=== PATIENT | male | born 1985 | race African-American/Black ===

== ENCOUNTER 2017-03-22 08:58 | Emergency (ER) | payer OTHER ==
[2017-03-22 09:04] VITALS: BP 111/78; PULSE 77; BMI 22.0
--- NOTE | 2017-03-22 10:15 | PDOC ---
History of Present Illness - General Chief Complaint: Injury Stated Complaint: HEAD INJURY/ BLEEDING Time Seen by Provider: 03/22/17 10:08 History Source: Patient Exam Limitations: Physical Impairment - History of Present Illness Initial Comments: 03/22/17 10:28 31 yr male brought from [facility] for eval of laceration to scalp after hitting head on the door. No LOC. Pt has severe MR, seizure disorder. Pt is with her aides. Tetanus UTD. bleeding controlled. Occurred: reports: just prior to arrival Severity: reports: mild Pain Location: reports: head Method of Injury: Yes: direct blow (hit on door frame) Past History - Past Medical History Allergies/Adverse Reactions: Allergies Allergy/AdvReac Type Severity Reaction Status Date / Time No Known Allergies Allergy Verified 03/22/17 09:04 Home Medications: Ambulatory Orders Baclofen 15 mg PO TID 10/25/15 Benztropine Mesylate [Cogentin -] 0.5 mg PO BID 10/25/15 Cefuroxime Axetil [Ceftin -] 500 mg PO Q12H #20 tablet 10/25/15 Cholecalciferol (Vitamin D3) [Vitamin D3] 1,000 unit PO DAILY 10/25/15 Clonazepam [Klonopin] 1 mg PO BID 10/25/15 Docusate Sodium [Colace -] 200 mg PO HS 10/25/15 Haloperidol [Haldol -] 5 mg PO BID 10/25/15 Ibuprofen [Motrin -] 600 mg PO TID #21 tablet 10/25/15 Lorazepam [Ativan] 3 mg PO DAILY 10/25/15 Multivitamin [Poly-Vitamin] 1 each PO DAILY 10/25/15 Trazodone HCl 100 mg PO HS 10/25/15 Polyethylene Glycol 3350 [Miralax 119 gm Btl -] 17 gm PO DAILY PRN 11/26/15 Psychiatric Problems: Yes (CEREBRAL PALSY & MR, Autistic) - Immunization History Immunization Up to Date: Yes - Psycho/Social/Smoking Cessation Hx Anxiety: No Suicidal Ideation: No Smoking History: Never smoked Have you smoked in the past 12 months: No Information on smoking cessation initiated: No Hx Alcohol Use: No Drug/Substance Use Hx: No Substance Use Type: None Trauma Specific PMHX - Complaint Specific PMHX Arthritis: No Back Injury: No Neck Injury: No Hx Sacro Iliac Joint Dysfunction: No *Physical Exam - Vital Signs Last Vital Signs Temp Pulse Resp BP Pulse Ox 77 18 111/78 99 03/22/17 09:02 03/22/17 09:02 03/22/17 09:02 03/22/17 09:02 - Physical Exam General Appearance: Yes: Nourished, Appropriately Dressed HEENT: positive: EOMI, JOSÉ MIGUEL, TMs Normal Neck: positive: Supple Integumentary: positive: Other (left occipital scalp with laceration 2.0cm ) Procedures - Laceration/Wound Repair Left Occipital Wound Length: to 2.5 cm Wound Explored: clean Wound's Depth, Shape: into muscle, linear Irrigated w/ Saline: Yes Betadine Prep: Yes Wound Repaired With: [place] (3 megan placed ) Progress: 03/22/17 10:35 bacitracin placed Medical Decision Making - Medical Decision Making 03/22/17 10:36 cc: scalp laceration hit head on door frame no LOC witnessed by staff, at baseline pt is non verbal will irrigate and close wound with megan tetanus is UTD. vital stable *DC/Admit/Observation/Transfer Diagnosis at time of Disposition: Laceration - Discharge Dispostion Disposition: HOME Condition at time of disposition: Good - Referrals Referrals: Lexii Steele [Primary Care Provider] - - Patient Instructions Additional Instructions: apply ice every 2hrs for 15 minutes to the wound area as tolerated give tylenol 650mg every 4-6hrs for pain as needed Return in 7-10 days for staple removal Please have patient follow with his primary care doctor in 1-2 days for follow up visit - Post Discharge Activity Work/School Note: Back to School
== END 2017-03-22 11:08 | disposition home or self-care (01) ==
LOC: JERFT 08:58
PROC: 0HQ0XZZ Repair Scalp Skin, External Approach (ICD-10-PCS; principal; 2017-03-22)
DX: S01.01XA Laceration without foreign body of scalp, initial encounter (principal); W22.8XXA Striking against or struck by other objects, initial encounter; Y93.89 Activity, other specified; Y92.118 Other place in children's home and orphanage as the place of occurrence of the external cause; G40.909 Epilepsy, unspecified, not intractable, without status epilepticus; G80.9 Cerebral palsy, unspecified; F72 Severe intellectual disabilities; F84.0 Autistic disorder
CPT/HCPCS: 12001-25; 99281-25

== ENCOUNTER 2019-09-17 22:04 | Inpatient (IN) | payer OTHER ==
[2019-09-17] MEDS ORDERED: ALBUTEROL SO4 0.083% IH SOL 2.5 MG/3 ML VIAL.NEB. NEB ONE ×2 (22:13→22:29)
--- NOTE | 2019-09-17 22:26 | PDOC ---
Attending Attestation - Resident Resident Name: Marilyn Barrett - ED Attending Attestation I have performed the following: I have examined & evaluated the patient, The case was reviewed & discussed with the resident, I agree w/resident's findings & plan, Exceptions are as noted - HPI HPI: 09/17/19 22:25 34-year-old male brought in from residential facility for respiratory distress. He was hypoxic on 100% nonrebreather ,tachycardic,tachypnic Past medical history legally blind, cerebral palsy, nonverbal at baseline 09/18/19 00:22 - Physicial Exam PE: 09/17/19 22:26 34-year-old male with contracted limbs presents with rhonchorous breath sounds and hypoxia Head normocephalic atraumatic Lungs diffuse coarse rhonchi throughout all lung spence CVS tachycardia Abdomen nondistended neuro nonverbal at baseline - Medical Decision Making 09/18/19 00:23 Critical care time 60 minutes Patient required intubation for respiratory distress Vent settings tidal volume 450, PEEP equal to 5, 5 to 100% Chest x-ray shows definite left lower lobe infiltrate with probable right lower lobe infiltrate 7.5 ET confirmed with repeat chest x-ray, end-tidal CO2 and bilateral breath sounds 09/18/19 00:56 pt admitted to ICU repeat cxr confirms ETT placement
[2019-09-17 22:45] LABS: BASO % 0.1 % (0-2.0); EOS % 0.4 % (0-4.5); HEMATOCRIT 43.9 % (35.4-49); HEMOGLOBIN 14.9 GM/dL (11.7-16.9); LYMPH % 13.1 % (8-40); MCH 28.8 pg (25.7-33.7); MCHC 33.9 g/dl (32.0-35.9); MEAN PLT VOLUME 9.2 fl (7.5-11.1); MONO % 3.7 % (3.8-10.2); NEUT % 82.7 % (42.8-82.8); PLATELET COUNT 241 K/MM3 (134-434); RBC 5.16 M/mm3 (4.00-5.60); RDW 13.4 % (11.9-15.9); WHITE BLOOD COUNT 12.1 K/mm3 (4.0-10.0)
[2019-09-17 22:48] LABS: VENOUS PH 7.22 (7.31-7.41); VENOUS PO2 < 49 mmHg (28-48)
--- NOTE | 2019-09-17 22:48 | PDOC ---
History of Present Illness - General Chief Complaint: Respiratory Stated Complaint: DIFFICULTY OF BREATHING Time Seen by Provider: 09/17/19 22:15 - History of Present Illness Initial Comments: 09/17/19 22:47 HPI: 34 y/o M with hx of cerebral palsy, intellectual disability, and blindness BIBEMS from facility for AMS, increased WOB and concern for aspiration PNA. Was found hypoxic and tachypnic. Patient was brought to the ED. Sats were 80s, HR 130s, BP wnl, T 95. Started on nonrebreather but sats continued in the high 80s. Breath sounds were bilateral but rhonchorous. Patient is nonverbal at [facility], but he was grunting while here. PMHx: as noted above ROS: as noted SHx: at residential facility Allergies: NKDA ROS: unable to perform given mental status PE: GENERAL: unresponsive, eyes closed, labored breathing HEAD: No signs of trauma, normocephalic, atraumatic EYES: eyes closed ENT: Auricles normal inspection, significant oral and nasal secretions NECK: No lymphadenopathy LUNGS: increased work of breathing, significant upper airway congestion, rhonchi and rales in BL lower lung bases HEART: tachycardic rhythm, normal S1 and S2, no murmurs, peripheral pulses 2+ and equal bilaterally. ABDOMEN: Soft, nondistended, nontender. No guarding, no rebound. No masses. No CVAT EXTREMITIES: BL contractures of hands, no cyanosis NEUROLOGICAL: unresponsive SKIN: Warm, Dry, normal turgor, no rashes or lesions noted Past History - Past Medical History Allergies/Adverse Reactions: Allergies Allergy/AdvReac Type Severity Reaction Status Date / Time No Known Allergies Allergy Verified 09/17/19 22:25 Home Medications: Ambulatory Orders Baclofen 15 mg PO TID 10/25/15 Benztropine Mesylate [Cogentin -] 0.5 mg PO BID 10/25/15 Cefuroxime Axetil [Ceftin -] 500 mg PO Q12H #20 tablet 10/25/15 Cholecalciferol (Vitamin D3) [Vitamin D3] 1,000 unit PO DAILY 10/25/15 Clonazepam [Klonopin] 1 mg PO BID 10/25/15 Docusate Sodium [Colace -] 200 mg PO HS 10/25/15 Haloperidol [Haldol -] 5 mg PO BID 10/25/15 Ibuprofen [Motrin -] 600 mg PO TID #21 tablet 10/25/15 Lorazepam [Ativan] 3 mg PO DAILY 10/25/15 Multivitamin [Poly-Vitamin] 1 each PO DAILY 10/25/15 Trazodone HCl 100 mg PO HS 10/25/15 Polyethylene Glycol 3350 [Miralax 119 gm Btl -] 17 gm PO DAILY PRN 11/26/15 Psychiatric Problems: Yes (CEREBRAL PALSY & MR, Autistic) - Immunization History Immunization Up to Date: Yes - Psycho Social/Smoking Cessation Hx Smoking History: Unknown if ever smoked Have you smoked in the past 12 months: No Hx Alcohol Use: No Drug/Substance Use Hx: No Substance Use Type: None *Physical Exam - Vital Signs Last Vital Signs Temp Pulse Resp BP Pulse Ox 95.9 F L 131 H 27 H 128/77 88 L 09/17/19 22:05 09/17/19 22:05 09/17/19 22:05 09/17/19 22:05 09/17/19 22:05 Procedures - Intubation Time of Intubation: 00:01 Intubation Method: orotracheal Blade used: Glidescope Tube Size (Fr): 7.5 Medications: Etomidate, Succinylcholine Tube position @ lip (cm): 22 Tube position confirmed by: Direct visualization, CO2 detector, Chest x-ray, Breath sounds Breath Sounds after Intubation: equal Intubation Complications: no complications Post Intubation Xray: Yes ED Treatment Course - LABORATORY CBC & Chemistry Diagram: 09/17/19 22:30 09/17/19 22:30 Medical Decision Making - Critical Care Time Total Critical Care Time (minutes): 60 Critical Care Statement: The care of this patient involved high complexity decision making to prevent further life threatening deterioration of the patient 's condition and/or to evaluate & treat vital organ system(s) failure or risk of failure. - Medical Decision Making 09/18/19 00:27 34 y/o M with hx of cerebral palsy, intellectual disability, and blindness BIBEMS from facility for AMS, increased WOB and concern for aspiration PNA. Was found hypoxic and tachypnic. Sats were 80s, HR 130s, BP wnl, T 95. Started on nonrebreather but sats continued in the high 80s. Breath sounds were bilateral but rhonchorous. Patient is nonverbal at baseline, but he was grunting while here. -sepsis order set 09/18/19 00:29 patient hypercapnic pCO2 72 and pH 7.22 WBC 12 Patient continues to sat 88 on nonrebreather Decision made to intubate with RSI: see intubation note; 7.5ETT 22cm at the lip ICU team made aware of patient; will contact hospitalist for admission given empiric vanc zosyn 09/18/19 00:46 ETT confirmed with CXR; also BL lower lobe infiltrates more clearly visualzied admitted to ICU under ifudu Discharge - Discharge Information Problems reviewed: Yes Clinical Impression/Diagnosis: Respiratory distress Pneumonia Qualifiers: Pneumonia type: due to unspecified organism Laterality: bilateral Lung location : lower lobe of lung Qualified Code(s): J18.9 - Pneumonia, unspecified organism Condition: Guarded - Admission Yes - Follow up/Referral - Patient Discharge Instructions - Post Discharge Activity
[2019-09-17 22:49] LABS: VENOUS PC02 72.1 mmHg (38-52)
[2019-09-17 22:57] LABS: INR 1.21 (0.83-1.09); PROTHROMBIN TIME (PATIENT) 14.3 SEC (9.7-13.0)
[2019-09-17 23:00] LABS: ACTIVATED PTT 31.4 SECONDS (25.2-36.5)
[2019-09-17] MEDS ORDERED: PIPERACILLIN/TAZOB 3.375 GM 3.375 GM in DEXTROSE 5%-WATER - 50 ML IVPB ONE (23:05)
[2019-09-17] MEDS ORDERED: VANCOMYCIN 1 GM PREMIX - 1 GM/200 ML BAG IVPB ONE (23:05)
[2019-09-17 23:10] LABS: ALBUMIN 3.7 g/dl (3.4-5.0); BILIRUBIN,TOTAL 0.2 mg/dL (0.2-1); BLOOD UREA NITROGEN 19.4 mg/dL (7-18); CALCIUM 8.8 mg/dL (8.5-10.1); CREATININE 0.8 mg/dL (0.55-1.3); POTASSIUM 3.6 mmol/L (3.5-5.1)
[2019-09-17] MEDS ORDERED: RAPID SEQUENCE INTUBATION KIT NR ONE (23:11)
[2019-09-18] MEDS ORDERED: ROCURONIUM BROMIDE 50 MG/5 ML VIAL IVPUSH ONE ×2 (00:01→04:16)
[2019-09-18] MEDS ORDERED: PROPOFOL 1,000,000 MCG/100 ML VIAL ONE ×3 (00:09→16:21)
[2019-09-18] MEDS ORDERED: PROPOFOL 1,000,000 MCG/100 ML VIAL IVPB SCH (00:15)
[2019-09-18] MEDS ORDERED: SODIUM CHLORIDE 1,000 ML IV STA (00:23)
[2019-09-18] MEDS ORDERED: ETOMIDATE 40 MG/20 ML VIAL IVPUSH ONE (00:23)
[2019-09-18] MEDS ORDERED: SUCCINYLCHOLINE CHLORIDE 200 MG/10 ML VIAL IVPUSH ONE (00:23)
[2019-09-18 00:57] LABS: URINE APPEARANCE CLEAR; URINE BILIRUBIN NEGATIVE (NEGATIVE); URINE COLOR YELLOW; URINE GLUCOSE (UA) TRACE (NEGATIVE); URINE KETONE NEGATIVE (NEGATIVE); URINE LEUK ESTERASE NEGATIVE (NEGATIVE); URINE NITRITE NEGATIVE (NEGATIVE); URINE PROTEIN NEGATIVE (NEGATIVE); URINE UROBILINOGEN 0.2 mg/dL (0.2-1.0)
[2019-09-18] MEDS ORDERED: SODIUM CHLORIDE 500 ML IV STA (01:03)
--- NOTE | 2019-09-18 01:13 | CONSULT ---
Consultation: CONSULT REQUEST: ICU CONSULT HISTORY OF PRESENT ILLNESS: 34 y/o M with hx of cerebral palsy, intellectual disability, and blindness BIBEMS from facility because of lethargy and cough with increasing sputum production. Applications Engineering Manager says he was sitting down when he suddenly started having coughing spells with sputum production. She said they were treating him for flu- like symptoms and was given pseudophed. Patent then became more altered and lethargic which prompted them to call EMS. Applications Engineering Manager denies sick contacts at the facility. Patient also received flu vaccine 2 days ago. She also says patient had no recent illness. In the ER patient was found hypoxic. He was placed on venti-mask but had increased work of breathing and remained hypoxic. Patient was then intubated ( 7.5ETT 22cm at the lip). He was found tachycardic in the 120's, hypothermic at 95.9. WBC 12. B/L infiltrates on CXR. 1x Vanc/Zosyn given. Vent settings in ED: Elsa 14, 450TV, 100%Fio2, PEEP 5 REVIEW OF SYSTEMS: unable to obtain PHYSICAL EXAMINATION Vital Signs - 24 hr 09/17/19 09/18/19 22:05 00:51 Temperature 95.9 F L Pulse Rate 131 H 122 H Respiratory 27 H 14 Rate Blood Pressure 128/77 O2 Sat by Pulse 88 L 94 L Oximetry (%) GENERAL: intubated/sedated on raffy hugger EYES: PERRL EARS, NOSE, THROAT: dry mucous membranes NECK: no lymphadenopathy, JVD, or masses. LUNGS: rhonchorous breath sounds HEART: tachy, no murmurs appreciaed ABDOMEN: no grimacing to palpation, +BS LOWER EXTREMITIES: 2+ pulses,No peripheral edema. SKIN: cold, no rashes or lesions noted. Laboratory Results - last 24 hr 09/17/19 09/17/19 09/17/19 22:30 22:30 22:30 WBC 12.1 H RBC 5.16 Hgb 14.9 Hct 43.9 MCV 85.0 MCH 28.8 MCHC 33.9 RDW 13.4 Plt Count 241 D MPV 9.2 Absolute Neuts (auto) 10.0 H Neutrophils % 82.7 Lymphocytes % 13.1 D Monocytes % 3.7 L Eosinophils % 0.4 Basophils % 0.1 Nucleated RBC % 0 PT with INR 14.30 H INR 1.21 H PTT (Actin FS) 31.4 VBG pH POC VBG pCO2 POC VBG pO2 VBG HCO3 VBG O2 Sat (Laci) VBG Base Excess Sodium Potassium Chloride Carbon Dioxide Anion Gap BUN Creatinine Est GFR (CKD-EPI)AfAm Est GFR (CKD-EPI)NonAf Random Glucose Lactic Acid Calcium Total Bilirubin AST ALT Alkaline Phosphatase Troponin I < 0.02 Total Protein Albumin Urine Color Urine Appearance Urine pH Ur Specific [place] Urine Protein Urine Glucose (UA) Urine Ketones Urine Blood Urine Nitrite Urine Bilirubin Urine Urobilinogen Ur Leukocyte Esterase 09/17/19 09/17/19 09/17/19 22:30 22:30 22:30 WBC RBC Hgb Hct MCV MCH MCHC RDW Plt Count MPV Absolute Neuts (auto) Neutrophils % Lymphocytes % Monocytes % Eosinophils % Basophils % Nucleated RBC % PT with INR INR PTT (Actin FS) VBG pH 7.22 L POC VBG pCO2 72.1 H* POC VBG pO2 < 49 H VBG HCO3 28.2 VBG O2 Sat (Laci) 74.2 VBG Base Excess -1.6 Sodium 140 Potassium 3.6 Chloride 106 Carbon Dioxide 28 Anion Gap 6 L BUN 19.4 H Creatinine 0.8 Est GFR (CKD-EPI)AfAm 136.03 Est GFR (CKD-EPI)NonAf 117.37 Random Glucose 180 H Lactic Acid 1.9 Calcium 8.8 Total Bilirubin 0.2 AST 19 ALT 28 Alkaline Phosphatase 108 Troponin I Total Protein 7.0 Albumin 3.7 Urine Color Urine Appearance Urine pH Ur Specific [place] Urine Protein Urine Glucose (UA) Urine Ketones Urine Blood Urine Nitrite Urine Bilirubin Urine Urobilinogen Ur Leukocyte Esterase Active Medications Generic Name Dose Route Start Last Admin Trade Name Freq PRN Reason Stop Dose Admin Propofol 1,000,000 mcg in 100 mls @ 2.245 mls/hr 09/18/19 00:15 09/18/19 00: 20 Diprivan - IVPB 5 mcg/kg/min TITR ASHA 2.245 mls/hr Administration Protocol 5 MCG/KG/MIN Sodium Chloride 1,000 mls @ 1,000 mls/hr 09/18/19 00:23 09/18/19 00:23 Normal Saline - IV 09/18/19 01:22 1,000 mls/hr ASDIR STA Administration Piperacillin Sod/Tazobactam 50 mls @ 100 mls/hr 09/18/19 06:00 Sod 2.25 gm/ Dextrose IVPB Q6H-IV ASHA Protocol Sodium Chloride 500 mls @ 500 mls/hr 09/18/19 01:03 Normal Saline - IV 09/18/19 02:02 ASDIR STA Sodium Chloride 1,000 mls @ 83 mls/hr 09/18/19 01:15 Normal Saline - IV ASDIR ASHA ASSESSMENT/PLAN: #Acute Hypoxic Hypercapneic Respiratory Failure #Aspiration PNA #Sepsis #Hypothermia #Cerebral palsy #Blindness -intubated/sedated on propofol -repeat ABG and adjust vent settings -Monitor Vital signs -IV abx -IV Fluids -HD stable. -Maintain MAP >65 -NPO -Flu, Viral pcr -repeat lactic acid -aspiration precautions -repeat CXR Dispo: We will continue to follow the patient. Thank you for this consultative opportunity. Visit type - Emergency Visit Emergency Visit: Yes ED Registration Date: 09/18/19 Care time: The patient presented to the Emergency Department on the above date and was hospitalized for further evaluation of their emergent condition. - New Patient This patient is new to me today: Yes Date on this admission: 09/20/19 - Critical Care Critical Care patient: Yes Total Critical Care Time (in minutes): 40 Critical Care Statement: The care of this patient involved high complexity decision making to prevent further life threatening deterioration of the patient 's condition and/or to evaluate & treat vital organ system(s) failure or risk of failure. ATTENDING PHYSICIAN STATEMENT I saw and evaluated the patient. I reviewed the resident's note and discussed the case with the resident. I agree with the resident's findings and plan as documented. SUBJECTIVE: OBJECTIVE: ASSESSMENT AND PLAN:
[2019-09-18 01:23] LABS: ARTERIAL BLD GAS O2 SATURATION 97.8 % (95-98); ARTERIAL BLOOD GAS BASE EXCESS -3.4 meq/l (-2-2); ARTERIAL BLOOD GAS PCO2 64.5 mmHg (35-45); ARTERIAL BLOOD GAS pH 7.22 (7.35-7.45)
[2019-09-18 01:25] LABS: ARTERIAL BLOOD GAS PO2 138 mmHg (80-100)
[2019-09-18 01:26] LABS: ALLENS TEST POSITIVE
--- NOTE | 2019-09-18 01:52 | PN ---
<Adamaris Watters - Last Filed: 09/18/19 04:23> Teaching Attending Note Name of Resident: Julia Joseph ATTENDING PHYSICIAN STATEMENT I saw and evaluated the patient. I reviewed the resident's note and discussed the case with the resident. I agree with the resident's findings and plan as documented. SUBJECTIVE: Patient is a 34 year old man with PMH of Cerebral palsy, Intellectual disability , and Blindness brought in from facility because of lethargy and cough with increasing sputum production. Endodontic Assistant says he was sitting down when he suddenly started having coughing spells with sputum production. She said they were treating him for flu-like symptoms and was given pseudaphed. Patient then became more altered and lethargic which prompted them to call EMS. Endodontic Assistant denies sick contacts at the facility. Patient also received flu vaccine 2 days ago. She also says patient had no recent illness. In the ER patient was found hypoxic. He was placed on venti-mask but had increased work of breathing and remained hypoxic. Patient was then intubated (7.5ETT 22cm at the lip). He was found tachycardic in the, hypothermic at 95.9, WBC of 12 and bilateral infiltrates on CXR. OBJECTIVE: Sedated; ventilator-dependent and on warming blanket Vital Signs Period Temp Pulse Resp BP Sys/Horne Pulse Ox Last 24 Hr 95.9 F 122-131 14-27 128/77 88-94 HEENT: No Jaundice, eye redness or discharge, Legally blind; Normocephalic, atraumatic. External ears are normal. No nasal discharge. Neck: Supple, nontender. No palpable adenopathy or thyromegaly. No JVD Chest: Good effort. Diffuse rhonchi. Clear to percussion. Heart: Regular. No S3, rub or murmur Abdomen: Not distended, soft, nontender and no HSM. No rebound or guarding. Normal bowel sounds. Ext: Peripheral pulses intact. No leg edema. Multiple limb contractures. Skin: Warm and dry. No petechiae, rash or ecchymosis. Neuro: Sedated. Ventilator dependent. Psych: Appropriate mood and affect. Good insight. Current Medications Generic Name Dose Route Start Last Admin Trade Name Freq PRN Reason Stop Dose Admin Chlorhexidine Gluconate 1 applic 09/18/19 22:00 Hibiclens For Decolonization - TP HS [facility] Heparin Sodium (Porcine) 5,000 unit 09/18/19 06:00 Heparin - SQ TID [facility] Piperacillin Sod/Tazobactam 50 mls @ 100 mls/hr 09/18/19 06:00 Sod 2.25 gm/ Dextrose IVPB Q6H-IV [facility] Protocol Sodium Chloride 1,000 mls @ 83 mls/hr 09/18/19 01:15 09/18/19 02:27 Normal Saline - IV 83 mls/hr ASDIR ASHA Administration Midazolam HCl 100 mg/ Sodium 100 mls @ 1 mls/hr 09/18/19 02:30 Chloride IVPB 09/19/19 02:29 TITR [facility] Protocol 1 MG/HR Mupirocin 1 applic 09/18/19 10:00 Bactroban Ointment (For Decolonization) - NS 09/23/19 09:59 BID [facility] Home Medications Medication Instructions Recorded Baclofen 15 mg PO TID 10/25/15 Benztropine Mesylate [Cogentin -] 0.5 mg PO BID 10/25/15 Cefuroxime Axetil [Ceftin -] 500 mg PO Q12H #20 tablet 10/25/15 Cholecalciferol (Vitamin D3) 1,000 unit PO DAILY 10/25/15 [Vitamin D3] Clonazepam [Klonopin] 1 mg PO BID 10/25/15 Docusate Sodium [Colace -] 200 mg PO HS 10/25/15 Haloperidol [Haldol -] 5 mg PO BID 10/25/15 Ibuprofen [Motrin -] 600 mg PO TID #21 tablet 10/25/15 Lorazepam [Ativan] 3 mg PO DAILY 10/25/15 Multivitamin [Poly-Vitamin] 1 each PO DAILY 10/25/15 Trazodone HCl 100 mg PO HS 10/25/15 Polyethylene Glycol 3350 [Miralax 17 gm PO DAILY PRN 11/26/15 119 gm Btl -] Abnormal Lab Results 09/17/19 09/17/19 09/17/19 22:30 22:30 22:30 WBC 12.1 H Absolute Neuts (auto) 10.0 H Monocytes % 3.7 L PT with INR 14.30 H INR 1.21 H ABG pH ABG pCO2 at Pt Temp ABG pO2 at Pt Temp ABG Base Excess VBG pH POC VBG pCO2 POC VBG pO2 Anion Gap 6 L BUN 19.4 H Random Glucose 180 H 09/17/19 09/18/19 22:30 01:00 WBC Absolute Neuts (auto) Monocytes % PT with INR INR ABG pH 7.22 L ABG pCO2 at Pt Temp 64.5 H ABG pO2 at Pt Temp 138 H ABG Base Excess -3.4 L VBG pH 7.22 L POC VBG pCO2 72.1 H* POC VBG pO2 < 49 H Anion Gap BUN Random Glucose ASSESSMENT AND PLAN: 1. Sepsis due to pneumonia/hypoxic and hypercarbic respiratory failure - CXR shows bilateral fluffy lower lobe infiltrates (R>L). Will continue ventilator management and warming blanket in the ICU. Sepsis work up done and being treated with IV Vancomycin and Zosyn. Continue treatment with IV protonix, pulmonary toilet and decubitus prophylasix. Consult ID. EKG shows sinus tachycardia with LAE. Will continue comprehensive care for all of patients comorbid conditions. 2. DVT prophylaxis - Lovenox 40 mg SQ q 24 hours. 3. Advance directives - Full code <Isiah Johnson - Last Filed: 09/18/19 11:23> Teaching Attending Note Seen and examined; please see resident note for further historical information. I personally verified all alex historical information and exam findings. Personally interpreted all imaging and diagnostics and reviewed appropriate consults. I reviewed all labs and vital signs as per resident note and EMR as documented. I agree with the above assessment and plan unless supplemented by myself in the following. VS, labs, imaging reviewed Intubated and sedated on ventillator resting in bed, vent settings per flowsheet ET Tube in place; IV access noted with no apparent surrounding cellulitis RRR s1/2 no mgr Normal muscle tone, moves all 5 extremities with normal apparent strength Neck is supple, trachea midline, no mena LN Lungs CTAB with sym expansion NT ND +BS no mena organomegaly CN2-12 wnl; no FND but limited given clinical circumstances. NC AT EOMI PERRLA Not agitated, cannot complete full psych assessment No skin breakdown or rashes noted Telemetry reviewed, ventilator settings as per chart, ABG reviewed. Endorses acute hypercarbic respiratory failure. Oxygen is 138 which is actually high. pH is 7.22. Follow-up pending. Assessment and plan: Patient presents with acute hypoxic respiratory failure. Please note the following exam for the 24 hours billing. This documented by overnight team. Patient will continue to be monitored in the intensive care unit on the medicine service. Continue broad-spectrum antibiotics, fluids. At risk for resistant organisms given there social situation. Continue DVT prophylaxis. Hold feeds given likely aspiration. Protonix will be initiated for GI prophylaxis while n.p.o.
--- NOTE | 2019-09-18 02:01 | HP ---
CHIEF COMPLAINT: AMS PCP: Lexii Steele HISTORY OF PRESENT ILLNESS: 34 y/o male PMH cerebral palsy, intellectual disability, and BL blindness brought in from [facility] home after change in behavior. The pt was to receive his bath and responded with grunts; aid mentions he was breathing heavily. On duty nurse was called to assess and pt was found to be hypoxic in the 80s%, tachypnic, and tachycardic 120s, and hypothermic at 95o. He was brought to the ED where ABG demonstrated pH of 7.22 and Pco2 72. Pt was intubated and placed on mechanical ventilation. ED: (1) B/L infiltrates on CXR. (2) 1x Vanc/Zosyn given. (3) Vent settings in ED: Elsa 14, 450TV, 100%Fio2, PEEP 5 PAST MEDICAL HISTORY: Cerebral palsy, intellectual disability, and BL blindness PAST SURGICAL HISTORY: unable to obtain Social History: Smoking: no Alcohol: no Drugs: no Allergies: No Known Allergies Allergy (Verified 09/17/19 22:25) HOME MEDICATIONS: Medication Instructions Recorded Baclofen 15 mg PO TID 10/25/15 Benztropine Mesylate [Cogentin -] 0.5 mg PO BID 10/25/15 Cefuroxime Axetil [Ceftin -] 500 mg PO Q12H #20 tablet 10/25/15 Cholecalciferol (Vitamin D3) 1,000 unit PO DAILY 10/25/15 [Vitamin D3] Clonazepam [Klonopin] 1 mg PO BID 10/25/15 Docusate Sodium [Colace -] 200 mg PO HS 10/25/15 Haloperidol [Haldol -] 5 mg PO BID 10/25/15 Ibuprofen [Motrin -] 600 mg PO TID #21 tablet 10/25/15 Lorazepam [Ativan] 3 mg PO DAILY 10/25/15 Multivitamin [Poly-Vitamin] 1 each PO DAILY 10/25/15 Trazodone HCl 100 mg PO HS 10/25/15 Polyethylene Glycol 3350 [Miralax 17 gm PO DAILY PRN 11/26/15 119 gm Btl -] REVIEW OF SYSTEMS CONSTITUTIONAL: Absent: fever, chills, diaphoresis, generalized weakness, malaise, loss of appetite, weight change HEENT: Absent: rhinorrhea, nasal congestion, throat pain, throat swelling, difficulty swallowing, mouth swelling, ear pain, eye pain, visual changes CARDIOVASCULAR: Absent: chest pain, syncope, palpitations, irregular heart rate, lightheadedness , peripheral edema RESPIRATORY: Absent: cough, shortness of breath, dyspnea with exertion, orthopnea, wheezing, stridor, hemoptysis GASTROINTESTINAL: Absent: abdominal pain, abdominal distension, nausea, vomiting, diarrhea, constipation, melena, hematochezia GENITOURINARY: Absent: dysuria, frequency, urgency, hesitancy, hematuria, flank pain, genital pain MUSCULOSKELETAL: Absent: myalgia, arthralgia, joint swelling, back pain, neck pain SKIN: Absent: rash, itching, pallor HEMATOLOGIC/IMMUNOLOGIC: Absent: easy bleeding, easy bruising, lymphadenopathy, frequent infections ENDOCRINE: Absent: unexplained weight gain, unexplained weight loss, heat intolerance, cold intolerance NEUROLOGIC: Absent: headache, focal weakness or paresthesias, dizziness, unsteady gait, seizure, mental status changes, bladder or bowel incontinence PSYCHIATRIC: Absent: anxiety, depression, suicidal or homicidal ideation, hallucinations. PHYSICAL EXAMINATION Vital Signs - 24 hr 09/17/19 09/18/19 22:05 00:51 Temperature 95.9 F L Pulse Rate 131 H 122 H Respiratory 27 H 14 Rate Blood Pressure 128/77 O2 Sat by Pulse 88 L 94 L Oximetry (%) GENERAL: Sedated, intubated, on mechanical ventilation HEAD: NC, diffuse healed scars on right face, perioral edema EYES: BL white opacity RIGHT > LEFT. Pupils not visible. ENT: Ears normal, nares patent, intubated. NECK: No lymphadenopathy or masses. LUNGS: Left upper lobe rales HEART: RRR s1 s2 ABDOMEN: Soft, BS present in all 4 quadrants, non-distended MUSCULOSKELETAL: BL UE hand contracture. No bony deformities or tenderness. UPPER EXTREMITIES: 2+ pulses, warm, well-perfused. No cyanosis. No clubbing. No peripheral edema. LOWER EXTREMITIES: 2+ pulses, warm, well-perfused. No calf tenderness. No peripheral edema. NEUROLOGICAL: Corneal reflex intact. Repsonds to painful stimuli. PSYCHIATRIC: Non-communicative SKIN: Warm, dry, normal turgor, diffuse healed scars on RIGHT side of body. Normal capillary refill. Laboratory Results - last 24 hr 09/17/19 09/17/19 09/17/19 22:30 22:30 22:30 WBC 12.1 H RBC 5.16 Hgb 14.9 Hct 43.9 MCV 85.0 MCH 28.8 MCHC 33.9 RDW 13.4 Plt Count 241 D MPV 9.2 Absolute Neuts (auto) 10.0 H Neutrophils % 82.7 Lymphocytes % 13.1 D Monocytes % 3.7 L Eosinophils % 0.4 Basophils % 0.1 Nucleated RBC % 0 PT with INR 14.30 H INR 1.21 H PTT (Actin FS) 31.4 Anticoagulation Therapy Puncture Site ABG pH ABG pCO2 at Pt Temp ABG pO2 at Pt Temp ABG HCO3 ABG O2 Sat (Measured) ABG O2 Content ABG Base Excess Francisco Test VBG pH POC VBG pCO2 POC VBG pO2 VBG HCO3 VBG O2 Sat (Laci) VBG Base Excess O2 Delivery Device Oxygen Flow Rate Vent Mode Vent Rate Mechanical Rate PEEP Pressure Support Vent Sodium Potassium Chloride Carbon Dioxide Anion Gap BUN Creatinine Est GFR (CKD-EPI)AfAm Est GFR (CKD-EPI)NonAf Random Glucose Lactic Acid Calcium Total Bilirubin AST ALT Alkaline Phosphatase Troponin I < 0.02 Total Protein Albumin Urine Color Urine Appearance Urine pH Ur Specific [place] Urine Protein Urine Glucose (UA) Urine Ketones Urine Blood Urine Nitrite Urine Bilirubin Urine Urobilinogen Ur Leukocyte Esterase 09/17/19 09/17/19 09/17/19 22:30 22:30 22:30 WBC RBC Hgb Hct MCV MCH MCHC RDW Plt Count MPV Absolute Neuts (auto) Neutrophils % Lymphocytes % Monocytes % Eosinophils % Basophils % Nucleated RBC % PT with INR INR PTT (Actin FS) Anticoagulation Therapy Puncture Site ABG pH ABG pCO2 at Pt Temp ABG pO2 at Pt Temp ABG HCO3 ABG O2 Sat (Measured) ABG O2 Content ABG Base Excess Francisco Test VBG pH 7.22 L POC VBG pCO2 72.1 H* POC VBG pO2 < 49 H VBG HCO3 28.2 VBG O2 Sat (Laci) 74.2 VBG Base Excess -1.6 O2 Delivery Device Oxygen Flow Rate Vent Mode Vent Rate Mechanical Rate PEEP Pressure Support Vent Sodium 140 Potassium 3.6 Chloride 106 Carbon Dioxide 28 Anion Gap 6 L BUN 19.4 H Creatinine 0.8 Est GFR (CKD-EPI)AfAm 136.03 Est GFR (CKD-EPI)NonAf 117.37 Random Glucose 180 H Lactic Acid 1.9 Calcium 8.8 Total Bilirubin 0.2 AST 19 ALT 28 Alkaline Phosphatase 108 Troponin I Total Protein 7.0 Albumin 3.7 Urine Color Urine Appearance Urine pH Ur Specific [place] Urine Protein Urine Glucose (UA) Urine Ketones Urine Blood Urine Nitrite Urine Bilirubin Urine Urobilinogen Ur Leukocyte Esterase 09/18/19 09/18/19 00:30 01:00 WBC RBC Hgb Hct MCV MCH MCHC RDW Plt Count MPV Absolute Neuts (auto) Neutrophils % Lymphocytes % Monocytes % Eosinophils % Basophils % Nucleated RBC % PT with INR INR PTT (Actin FS) Anticoagulation Therapy No Result Required. Puncture Site Left radial ABG pH 7.22 L ABG pCO2 at Pt Temp 64.5 H ABG pO2 at Pt Temp 138 H ABG HCO3 25.5 ABG O2 Sat (Measured) 97.8 ABG O2 Content No Result Required. ABG Base Excess -3.4 L Francisco Test Positive VBG pH POC VBG pCO2 POC VBG pO2 VBG HCO3 VBG O2 Sat (Laci) VBG Base Excess O2 Delivery Device Vent Oxygen Flow Rate 100% Vent Mode No Result Required. Vent Rate 14 Mechanical Rate No Result Required. PEEP 5.0 Pressure Support Vent 450 Sodium Potassium Chloride Carbon Dioxide Anion Gap BUN Creatinine Est GFR (CKD-EPI)AfAm Est GFR (CKD-EPI)NonAf Random Glucose Lactic Acid Calcium Total Bilirubin AST ALT Alkaline Phosphatase Troponin I Total Protein Albumin Urine Color Yellow Urine Appearance Clear Urine pH 5.0 D Ur Specific [place] 1.021 Urine Protein Negative Urine Glucose (UA) Trace Urine Ketones Negative Urine Blood Negative Urine Nitrite Negative Urine Bilirubin Negative Urine Urobilinogen 0.2 Ur Leukocyte Esterase Negative ASSESSMENT/PLAN: 34 y/o male PMH cerebral palsy, intellectual disability, and BL blindness brought in from [facility] home after AMS and difficulty breathing. Pt intubated and mechanically ventilated. CXR shows bilateral fluffy lower lobe infiltrates (R>L). # Acute hypoxic, hypercapnic respiratory failure - Poss. 2/ PNA - Mechanically ventilate - Vanc/Zosyn - Mcgill culture - IVF - Warming blanket - Lactate - Monitor Vital signs - Consult ID # Sepsis 11/25 PNA - As above #F/E/N - NS - Cont. to monitor - Diet per home # DVT prophylaxis - Heparin SQ # Disposition - Admit to ICU Hiram Russell MD Visit type - Emergency Visit Emergency Visit: Yes ED Registration Date: 09/18/19 Care time: The patient presented to the Emergency Department on the above date and was hospitalized for further evaluation of their emergent condition. - New Patient This patient is new to me today: Yes Date on this admission: 09/18/19 - Critical Care Critical Care patient: Yes Total Critical Care Time (in minutes): 40 Critical Care Statement: The care of this patient involved high complexity decision making to prevent further life threatening deterioration of the patient 's condition and/or to evaluate & treat vital organ system(s) failure or risk of failure. ATTENDING PHYSICIAN STATEMENT I saw and evaluated the patient. I reviewed the resident's note and discussed the case with the resident. I agree with the resident's findings and plan as documented. SUBJECTIVE: OBJECTIVE: ASSESSMENT AND PLAN:
[2019-09-18] MEDS: SODIUM CHLORIDE 1,000 ML IV SCH (02:27)
[2019-09-18] MEDS ORDERED: MIDAZOLAM 100 MG in SODIUM CHLORIDE 100 ML IVPB SCH (02:30)
[2019-09-18] MEDS ORDERED: MIDAZOLAM HCL 2 MG/2 ML SINGLE DOSE VIAL ONE (03:31)
[2019-09-18] MEDS ORDERED: RAPID SEQUENCE INTUBATION KIT NR ONE (03:58)
[2019-09-18] MEDS ORDERED: PROPOFOL 200 MG/20 ML VIAL IVPUSH ONE (04:16)
[2019-09-18] MEDS ORDERED: MIDAZOLAM HCL 2 MG/2 ML SINGLE DOSE VIAL IVPUSH ONE (04:16)
[2019-09-18 05:59] LABS: ARTERIAL BLD GAS O2 SATURATION 98.8 % (95-98); ARTERIAL BLOOD GAS BASE EXCESS 0 meq/l (-2-2); ARTERIAL BLOOD GAS PCO2 47.6 mmHg (35-45); ARTERIAL BLOOD GAS pH 7.35 (7.35-7.45)
[2019-09-18 06:01] LABS: ARTERIAL BLOOD GAS PO2 161 mmHg (80-100)
[2019-09-18 06:02] LABS: ALLENS TEST POSITIVE
[2019-09-18 06:30] LABS: BASO % 0.2 % (0-2.0); EOS % 0.5 % (0-4.5); HEMATOCRIT 41.9 % (35.4-49); HEMOGLOBIN 14.7 GM/dL (11.7-16.9); MCH 29.2 pg (25.7-33.7); MEAN CELL VOLUME 83.6 fl (80-96); MEAN PLT VOLUME 8.6 fl (7.5-11.1); MONO % 5.3 % (3.8-10.2); PLATELET COUNT 192 K/MM3 (134-434); RBC 5.02 M/mm3 (4.00-5.60); RDW 13.4 % (11.9-15.9); WHITE BLOOD COUNT 4.5 K/mm3 (4.0-10.0)
[2019-09-18] MEDS ORDERED: HEPARIN NA (PORCINE) 5,000 UNITS/ML 1ML VIAL ONE ×2 (06:39→14:25)
[2019-09-18] MEDS: HEPARIN NA (PORCINE) 5,000 UNITS/ML 1ML VIAL SQ SCH ×3 (06:43→22:36)
[2019-09-18 06:44] LABS: BLOOD UREA NITROGEN 13.4 mg/dL (7-18); CALCIUM 8.1 mg/dL (8.5-10.1); CREATININE 0.6 mg/dL (0.55-1.3)
[2019-09-18] MEDS ORDERED: ACETAMINOPHEN 1000 MG/100 ML VIAL (NON FORMULARY) IVPB PRN (07:49)
[2019-09-18] MEDS ORDERED: PIPERACILLIN/TAZOB 2.25 GM 2.25 GM/50 ML BAG IVPB ONE (09:27)
[2019-09-18] MEDS: PIPERACILLIN/TAZOB 2.25 GM 2.25 GM in DEXTROSE 5%-WATER - 50 ML IVPB SCH ×4 (09:40→17:37)
[2019-09-18 10:29] LABS: ARTERIAL BLD GAS O2 SATURATION 98.2 % (95-98); ARTERIAL BLOOD GAS BASE EXCESS 2.7 meq/l (-2-2); ARTERIAL BLOOD GAS PCO2 42.6 mmHg (35-45); ARTERIAL BLOOD GAS PO2 112 mmHg (80-100); ARTERIAL BLOOD GAS pH 7.42 (7.35-7.45)
[2019-09-18 10:30] LABS: ALLENS TEST POSITIVE
--- NOTE | 2019-09-18 10:33 | EKG ---
Test Reason : Blood Pressure : / mmHG Vent. Rate : 121 BPM Atrial Rate : 121 BPM P-R Int : 136 ms QRS Dur : 090 ms QT Int : 326 ms P-R-T Axes : 080 090 058 degrees QTc Int : 462 ms SINUS TACHYCARDIA POSSIBLE LEFT ATRIAL ENLARGEMENT RIGHTWARD AXIS BORDERLINE ECG NO PREVIOUS ECGS AVAILABLE Confirmed by Denys Madrigal MD ([id number]) on 09/18/2019 10:33:02 AM Referred By: Confirmed By:Denys Madrigal MD
[2019-09-18] MEDS ORDERED: methylPREDNISolone NA SUCC 40 MG/1 ML VIAL ONE ×2 (11:06→18:34)
[2019-09-18] MEDS: methylPREDNISolone NA SUCC 40 MG/1 ML VIAL IVPUSH SCH ×2 (11:11→18:40)
[2019-09-18 12:30] LABS: BASO % 0.1 % (0-2.0); EOS % 0.8 % (0-4.5); HEMOGLOBIN 13.7 GM/dL (11.7-16.9); LYMPH % 5.4 % (8-40); MCH 28.6 pg (25.7-33.7); MCHC 34.1 g/dl (32.0-35.9); MEAN CELL VOLUME 83.7 fl (80-96); MEAN PLT VOLUME 8.6 fl (7.5-11.1); MONO % 5.9 % (3.8-10.2); NEUT % 87.8 % (42.8-82.8); PLATELET COUNT 167 K/MM3 (134-434); RBC 4.78 M/mm3 (4.00-5.60); RDW 13.3 % (11.9-15.9); WHITE BLOOD COUNT 7.7 K/mm3 (4.0-10.0)
[2019-09-18 12:52] LABS: ALBUMIN 2.9 g/dl (3.4-5.0); BILIRUBIN,TOTAL 0.8 mg/dL (0.2-1); BLOOD UREA NITROGEN 13.9 mg/dL (7-18); CALCIUM 8.2 mg/dL (8.5-10.1); CREATININE 0.7 mg/dL (0.55-1.3); MAGNESIUM 1.6 mg/dL (1.8-2.4); PHOSPHOROUS 3.4 mg/dL (2.5-4.9); POTASSIUM 4.2 mmol/L (3.5-5.1); TOT PROT 5.7 g/dl (6.4-8.2)
--- NOTE | 2019-09-18 12:52 | PN ---
Physical Exam: SUBJECTIVE: Patient seen and examined in ED. Vent settings modified to FiO2 70%. Flu swabs negative. Intubated and sedated, Propofol 25, Versed 4. HÉCTOR and Spence in place. HPI:34 y/o M with hx of cerebral palsy, intellectual disability, and blindness BIBEMS from facility because of lethargy and cough with increasing sputum production. Machine Molder says he was sitting down when he suddenly started having coughing spells with sputum production. She said they were treating him for flu- like symptoms and was given pseudophed. Patent then became more altered and lethargic which prompted them to call EMS. Machine Molder denies sick contacts at the facility. Patient also received flu vaccine 2 days ago. She also says patient had no recent illness. In the ER patient was found hypoxic. He was placed on venti-mask but had increased work of breathing and remained hypoxic. Patient was then intubated ( 7.5ETT 22cm at the lip). He was found tachycardic in the 120's, hypothermic at 95.9. WBC 12. B/L infiltrates on CXR. 1x Vanc/Zosyn given. Vent settings in ED: Elsa 14, 450TV, 100%Fio2, PEEP 5 OBJECTIVE: Vital Signs Period Temp Pulse Resp BP Sys/Horne Pulse Ox Last 24 Hr 95.9 F-97.9 F 108-134 12-34 100-141/56-114 87-100 GENERAL: Intubated/sedated on Juli hugger EYES: PERRL EARS, NOSE, THROAT: Dry mucous membranes NECK: no lymphadenopathy, JVD, or masses LUNGS: Rhonchorous breath sounds HEART: Tachy, no murmurs appreciaed ABDOMEN: No grimacing to palpation, +BS UPPER EXTREMITIES: 2+ pulses, contracted LOWER EXTREMITIES: 2+ pulses, no peripheral edema SKIN: Cold, no rashes or lesions noted Laboratory Results - last 24 hr 09/17/19 09/17/19 09/17/19 22:30 22:30 22:30 WBC 12.1 H RBC 5.16 Hgb 14.9 Hct 43.9 MCV 85.0 MCH 28.8 MCHC 33.9 RDW 13.4 Plt Count 241 D MPV 9.2 Absolute Neuts (auto) 10.0 H Neutrophils % 82.7 Lymphocytes % 13.1 D Monocytes % 3.7 L Eosinophils % 0.4 Basophils % 0.1 Nucleated RBC % 0 PT with INR 14.30 H INR 1.21 H PTT (Actin FS) 31.4 Anticoagulation Therapy Puncture Site ABG pH ABG pCO2 at Pt Temp ABG pO2 at Pt Temp ABG HCO3 ABG O2 Sat (Measured) ABG O2 Content ABG Base Excess Francisco Test VBG pH POC VBG pCO2 POC VBG pO2 VBG HCO3 VBG O2 Sat (Laci) VBG Base Excess Carboxyhemoglobin Methemoglobin O2 Delivery Device Oxygen Flow Rate Vent Mode Vent Rate Mechanical Rate PEEP Pressure Support Vent Sodium Potassium Chloride Carbon Dioxide Anion Gap BUN Creatinine Est GFR (CKD-EPI)AfAm Est GFR (CKD-EPI)NonAf Random Glucose Lactic Acid Calcium Total Bilirubin AST ALT Alkaline Phosphatase Troponin I < 0.02 Total Protein Albumin Urine Color Urine Appearance Urine pH Ur Specific [place] Urine Protein Urine Glucose (UA) Urine Ketones Urine Blood Urine Nitrite Urine Bilirubin Urine Urobilinogen Ur Leukocyte Esterase Influenza A (Rapid) Influenza B (Rapid) 09/17/19 09/17/19 09/17/19 22:30 22:30 22:30 WBC RBC Hgb Hct MCV MCH MCHC RDW Plt Count MPV Absolute Neuts (auto) Neutrophils % Lymphocytes % Monocytes % Eosinophils % Basophils % Nucleated RBC % PT with INR INR PTT (Actin FS) Anticoagulation Therapy Puncture Site ABG pH ABG pCO2 at Pt Temp ABG pO2 at Pt Temp ABG HCO3 ABG O2 Sat (Measured) ABG O2 Content ABG Base Excess Francisco Test VBG pH 7.22 L POC VBG pCO2 72.1 H* POC VBG pO2 < 49 H VBG HCO3 28.2 VBG O2 Sat (Laci) 74.2 VBG Base Excess -1.6 Carboxyhemoglobin Methemoglobin O2 Delivery Device Oxygen Flow Rate Vent Mode Vent Rate Mechanical Rate PEEP Pressure Support Vent Sodium 140 Potassium 3.6 Chloride 106 Carbon Dioxide 28 Anion Gap 6 L BUN 19.4 H Creatinine 0.8 Est GFR (CKD-EPI)AfAm 136.03 Est GFR (CKD-EPI)NonAf 117.37 Random Glucose 180 H Lactic Acid 1.9 Calcium 8.8 Total Bilirubin 0.2 AST 19 ALT 28 Alkaline Phosphatase 108 Troponin I Total Protein 7.0 Albumin 3.7 Urine Color Urine Appearance Urine pH Ur Specific [place] Urine Protein Urine Glucose (UA) Urine Ketones Urine Blood Urine Nitrite Urine Bilirubin Urine Urobilinogen Ur Leukocyte Esterase Influenza A (Rapid) Influenza B (Rapid) 09/18/19 09/18/19 09/18/19 00:30 01:00 05:00 WBC RBC Hgb Hct MCV MCH MCHC RDW Plt Count MPV Absolute Neuts (auto) Neutrophils % Lymphocytes % Monocytes % Eosinophils % Basophils % Nucleated RBC % PT with INR INR PTT (Actin FS) Anticoagulation Therapy No Result Required. Puncture Site Left radial ABG pH 7.22 L ABG pCO2 at Pt Temp 64.5 H ABG pO2 at Pt Temp 138 H ABG HCO3 25.5 ABG O2 Sat (Measured) 97.8 ABG O2 Content No Result Required. ABG Base Excess -3.4 L Francisco Test Positive VBG pH POC VBG pCO2 POC VBG pO2 VBG HCO3 VBG O2 Sat (Laci) VBG Base Excess Carboxyhemoglobin Methemoglobin O2 Delivery Device Vent Oxygen Flow Rate 100% Vent Mode No Result Required. Vent Rate 14 Mechanical Rate No Result Required. PEEP 5.0 Pressure Support Vent 450 Sodium Potassium Chloride Carbon Dioxide Anion Gap BUN Creatinine Est GFR (CKD-EPI)AfAm Est GFR (CKD-EPI)NonAf Random Glucose Lactic Acid Calcium Total Bilirubin AST ALT Alkaline Phosphatase Troponin I Total Protein Albumin Urine Color Yellow Urine Appearance Clear Urine pH 5.0 D Ur Specific [place] 1.021 Urine Protein Negative Urine Glucose (UA) Trace Urine Ketones Negative Urine Blood Negative Urine Nitrite Negative Urine Bilirubin Negative Urine Urobilinogen 0.2 Ur Leukocyte Esterase Negative Influenza A (Rapid) Negative Influenza B (Rapid) Negative 09/18/19 09/18/19 09/18/19 05:35 05:35 05:35 WBC 4.5 RBC 5.02 Hgb 14.7 Hct 41.9 MCV 83.6 MCH 29.2 MCHC 35.0 RDW 13.4 Plt Count 192 D MPV 8.6 Absolute Neuts (auto) 3.9 Neutrophils % 87.0 H Lymphocytes % 7.0 L D Monocytes % 5.3 Eosinophils % 0.5 Basophils % 0.2 Nucleated RBC % 0 PT with INR INR PTT (Actin FS) Anticoagulation Therapy Puncture Site ABG pH ABG pCO2 at Pt Temp ABG pO2 at Pt Temp ABG HCO3 ABG O2 Sat (Measured) ABG O2 Content ABG Base Excess Francisco Test VBG pH POC VBG pCO2 POC VBG pO2 VBG HCO3 VBG O2 Sat (Laci) VBG Base Excess Carboxyhemoglobin Methemoglobin O2 Delivery Device Oxygen Flow Rate Vent Mode Vent Rate Mechanical Rate PEEP Pressure Support Vent Sodium 138 Potassium 4.0 Chloride 108 H Carbon Dioxide 26 Anion Gap 4 L BUN 13.4 Creatinine 0.6 Est GFR (CKD-EPI)AfAm 153.11 Est GFR (CKD-EPI)NonAf 132.10 Random Glucose 116 H Lactic Acid 1.9 Calcium 8.1 L Total Bilirubin AST ALT Alkaline Phosphatase Troponin I Total Protein Albumin Urine Color Urine Appearance Urine pH Ur Specific [place] Urine Protein Urine Glucose (UA) Urine Ketones Urine Blood Urine Nitrite Urine Bilirubin Urine Urobilinogen Ur Leukocyte Esterase Influenza A (Rapid) Influenza B (Rapid) 09/18/19 09/18/19 09/18/19 05:45 05:45 10:14 WBC RBC Hgb Hct MCV MCH MCHC RDW Plt Count MPV Absolute Neuts (auto) Neutrophils % Lymphocytes % Monocytes % Eosinophils % Basophils % Nucleated RBC % PT with INR INR PTT (Actin FS) Anticoagulation Therapy No Result Required. No Result Required. Puncture Site Left radial Right radial ABG pH 7.35 7.42 ABG pCO2 at Pt Temp 47.6 H 42.6 ABG pO2 at Pt Temp 161 H 112 H ABG HCO3 25.7 27.1 H ABG O2 Sat (Measured) 98.8 H 98.2 H ABG O2 Content No Result Required. 19.8 ABG Base Excess 0 2.7 H Francisco Test Positive Positive VBG pH POC VBG pCO2 POC VBG pO2 VBG HCO3 VBG O2 Sat (Laci) VBG Base Excess Carboxyhemoglobin No Result Required. Methemoglobin < 1.0 O2 Delivery Device Vent No Result Required. Oxygen Flow Rate 100% 70 Vent Mode No Result Required. No Result Required. Vent Rate 18 18 Mechanical Rate No Result Required. No Result Required. PEEP 5.0 5.0 Pressure Support Vent 500 No Result Required. Sodium Potassium Chloride Carbon Dioxide Anion Gap BUN Creatinine Est GFR (CKD-EPI)AfAm Est GFR (CKD-EPI)NonAf Random Glucose Lactic Acid Calcium Total Bilirubin AST ALT Alkaline Phosphatase Troponin I Total Protein Albumin Urine Color Urine Appearance Urine pH Ur Specific [place] Urine Protein Urine Glucose (UA) Urine Ketones Urine Blood Urine Nitrite Urine Bilirubin Urine Urobilinogen Ur Leukocyte Esterase Influenza A (Rapid) Influenza B (Rapid) 11/26/19 12:10 WBC 7.7 RBC 4.78 Hgb 13.7 Hct 40.0 MCV 83.7 MCH 28.6 MCHC 34.1 RDW 13.3 Plt Count 167 MPV 8.6 Absolute Neuts (auto) 6.8 Neutrophils % 87.8 H Lymphocytes % 5.4 L D Monocytes % 5.9 Eosinophils % 0.8 Basophils % 0.1 Nucleated RBC % 0 PT with INR INR PTT (Actin FS) Anticoagulation Therapy Puncture Site ABG pH ABG pCO2 at Pt Temp ABG pO2 at Pt Temp ABG HCO3 ABG O2 Sat (Measured) ABG O2 Content ABG Base Excess Francisco Test VBG pH POC VBG pCO2 POC VBG pO2 VBG HCO3 VBG O2 Sat (Laci) VBG Base Excess Carboxyhemoglobin Methemoglobin O2 Delivery Device Oxygen Flow Rate Vent Mode Vent Rate Mechanical Rate PEEP Pressure Support Vent Sodium Potassium Chloride Carbon Dioxide Anion Gap BUN Creatinine Est GFR (CKD-EPI)AfAm Est GFR (CKD-EPI)NonAf Random Glucose Lactic Acid Calcium Total Bilirubin AST ALT Alkaline Phosphatase Troponin I Total Protein Albumin Urine Color Urine Appearance Urine pH Ur Specific [place] Urine Protein Urine Glucose (UA) Urine Ketones Urine Blood Urine Nitrite Urine Bilirubin Urine Urobilinogen Ur Leukocyte Esterase Influenza A (Rapid) Influenza B (Rapid) Active Medications Generic Name Dose Route Start Last Admin Trade Name Fatemeh PRN Reason Stop Dose Admin Acetaminophen 1,000 mg 09/18/19 07:49 Ofirmev Injection - IVPB Q6H PRN FEVER Chlorhexidine Gluconate 1 applic 09/18/19 22:00 Hibiclens For Decolonization - TP HS ASHA Heparin Sodium (Porcine) 5,000 unit 09/18/19 06:00 09/18/19 06:43 Heparin - SQ 5,000 unit TID ASHA Administration Piperacillin Sod/Tazobactam 50 mls @ 100 mls/hr 09/18/19 06:00 Sod 2.25 gm/ Dextrose IVPB Q6H-IV ASHA Protocol Sodium Chloride 1,000 mls @ 83 mls/hr 09/18/19 01:15 09/18/19 02:27 Normal Saline - IV 83 mls/hr ASDIR ASHA Administration Midazolam HCl 100 mg/ Sodium 100 mls @ 1 mls/hr 09/18/19 02:30 09/18/19 04:18 Chloride IVPB 09/19/19 02:29 4 mg/hr TITR ASHA 4 mls/hr Administration Protocol 1 MG/HR Piperacillin Sod/Tazobactam 50 mls @ 100 mls/hr 09/18/19 09:00 09/18/19 09:40 Sod 2.25 gm/ Dextrose IVPB 09/18/19 21:29 100 mls/hr Q6H-IV ASHA Administration Methylprednisolone Sodium Succinate 40 mg 09/18/19 10:00 09/18/19 11:11 Solu-Medrol - IVPUSH 40 mg Q8H-IV ASHA Administration Mupirocin 1 applic 09/18/19 10:00 Bactroban Ointment (For Decolonization) - NS 09/23/19 09:59 BID ASHA ASSESSMENT/PLAN: 34 y/o M with hx of cerebral palsy, intellectual disability, and blindness BIBEMS from facility because of lethargy and cough with increasing sputum production found to be septic, hypothermic, with presumed aspiration pneumonia source. Patient with acute hypoxic hypercapnic respiratory failure - tntubated, sedated, peripheral warming provided in the ED along with broad spectrum IV ABX and fluids. #Neuro: - Intubated and sedated on Propofol 25 / Versed 5 #CV: - Monitor vitals, HDS at this time - Juli hugger for hypothermia - Maintain MAPs >65 #Pulm: - Intubated and sedated - Trend ABG, adjust vent as indicated - Aspiration precautions - Repeat CXR #Renal: - Monitor lytes, replete as necessary - Monitor I&Os - IVF, s/p bolus in ED, on maintenance fluids now #ID: - S/p Vanc / Zosyn in the ED - Monitor for fever, leukocytosis - F/u cultures - ID consulted, appreciate recs - Repeat lactic acid - Flu swab negative - F/u Viral panel #GI: - NPO while mechanically ventilated #PPX: - Mechanical SCDs #Dispo: -Continued ICU monitoring Visit type - Emergency Visit Emergency Visit: Yes ED Registration Date: 09/18/19 Care time: The patient presented to the Emergency Department on the above date and was hospitalized for further evaluation of their emergent condition. - New Patient This patient is new to me today: Yes Date on this admission: 09/18/19 - Critical Care Critical Care patient: Yes Total Critical Care Time (in minutes): 36 Critical Care Statement: The care of this patient involved high complexity decision making to prevent further life threatening deterioration of the patient 's condition and/or to evaluate & treat vital organ system(s) failure or risk of failure. ATTENDING PHYSICIAN STATEMENT I saw and evaluated the patient. I reviewed the resident's note and discussed the case with the resident. I agree with the resident's findings and plan as documented. SUBJECTIVE: OBJECTIVE: ASSESSMENT AND PLAN:
--- NOTE | 2019-09-18 13:58 | PN ---
Teaching Attending Note Name of Resident: Per Marie ATTENDING PHYSICIAN STATEMENT I saw and evaluated the patient. I reviewed the resident's note and discussed the case with the resident. I agree with the resident's findings and plan as documented. SUBJECTIVE: Pt seen and examined in the ED. Intubated, sedated on propofol, versed gtts. Vented on volume assist control with 60% FiO2. CXR showing left sided infiltrate. OBJECTIVE: Vital Signs Period Temp Pulse Resp BP Sys/Horne Pulse Ox Last 24 Hr 95.9 F-97.9 F 108-134 12-34 100-141/56-114 87-100 Intake & Output 09/15/19 09/16/19 09/17/19 09/18/19 23:59 23:59 23:59 23:59 Output Total 100 Balance -100 Weight 74.843 kg Gen: intubated, sedated Heart: tachycardic, regular Lung: decreased breath sounds at the bases Abd: soft, nontender Ext: no edema CBC, BMP 09/18/19 12:10 09/18/19 12:10 Active Medications Acetaminophen (Ofirmev Injection -) 1,000 mg IVPB Q6H PRN PRN Reason: FEVER Chlorhexidine Gluconate (Hibiclens For Decolonization -) 1 applic TP HS ASHA Heparin Sodium (Porcine) (Heparin -) 5,000 unit SQ TID ASHA Last Admin: 09/18/19 06:43 Dose: 5,000 unit Piperacillin Sod/Tazobactam (Sod 2.25 gm/ Dextrose) 50 mls @ 100 mls/hr IVPB Q6H-IV ASHA; Protocol Sodium Chloride (Normal Saline -) 1,000 mls @ 83 mls/hr IV ASDIR ASHA Last Admin: 09/18/19 02:27 Dose: 83 mls/hr Midazolam HCl 100 mg/ Sodium (Chloride) 100 mls @ 1 mls/hr IVPB TITR ASHA; Protocol Stop: 09/19/19 02:29 Last Admin: 09/18/19 04:18 Dose: 4 mg/hr, 4 mls/hr Piperacillin Sod/Tazobactam (Sod 2.25 gm/ Dextrose) 50 mls @ 100 mls/hr IVPB Q6H-IV ASHA Stop: 09/18/19 21:29 Last Admin: 09/18/19 09:40 Dose: 100 mls/hr Methylprednisolone Sodium Succinate (Solu-Medrol -) 40 mg IVPUSH Q8H-IV ASHA Last Admin: 09/18/19 11:11 Dose: 40 mg Mupirocin (Bactroban Ointment (For Decolonization) -) 1 applic NS BID ASHA Stop: 09/23/19 09:59 ASSESSMENT AND PLAN: Acute Hypoxic and Hypercapneic Respiratory Failure Pneumonia likely Aspiration Sepsis Cerebral Palsy Mental Retardation - antibiotics to cover aspiration - f/u cultures - IVF - on empiric steroids - inhaled bronchodilators - taper Fio2 to keep SpO2 >90% - hold sedation in AM to assess mental status - spontaneous breathing trials as tolerated when mental status improved - DVT/GI prophylaxis - ICU monitoring critical care time spent in reviewing chart, evaluating patient and formulating plan 35 min
--- NOTE | 2019-09-18 15:27 | PN ---
Progress Note (short form) - Note Progress Note: ID CONSULT DICTATED PNEUMONIA R/O SEPSIS SECONDARY TO PNEUMONIA RESP FAILURE HYPOTHERMIA AWAIT C/S CONTINUE EMPIRIC ANTIBIOTIC TX CEFTRIAXONE/ZITHROMAX
[2019-09-18] MEDS ORDERED: AZITHROMYCIN IVPB 500 MG in DEXTROSE 5%-WATER - 250 ML IVPB SCH (15:30)
[2019-09-18] MEDS ORDERED: MAGNESIUM SULF 50% (8.12 MEQ/2 ML-1 GM VIAL) IVPB ONE (16:01)
[2019-09-18] MEDS ORDERED: MAGNESIUM 1GM/D5W - 2 GM/200 ML IVPB IVPB ONE (16:25)
[2019-09-18] MEDS ORDERED: CEFTRIAXONE 2 GM/100 ML BAG IVPB ONE (16:25)
[2019-09-18] MEDS ORDERED: AZITHROMYCIN IVPB 500 MG/250 ML BAG IVPB ONE (16:25)
--- NOTE | 2019-09-18 16:41 | CONS ---
DATE OF CONSULTATION: DATE OF DICTATION: 09/18/2019 INFECTIOUS DISEASE CONSULTATION HISTORY OF PRESENT ILLNESS: The patient is a 34-year-old male who suffers from cerebral palsy and mental retardation. He is a resident of a facility. He was brought to the emergency room after he was noted to be febrile and short of breath. Patient reportedly was hypoxemic and tachycardic and febrile. He required placement on a 100% nonrebreather mask. He was evaluated in the emergency room where chest x-ray showed left-sided pneumonia. He was empirically treated with vancomycin and Zosyn. He was unable to offer any additional details. According to the rolls mill operator who was present at the time of the examination, she reports that he lives in an institutional setting. There are no known ill contacts. He is dependent in activities of daily living. He is a nonsmoker, nondrinker. His course has been complicated by respiratory failure and intubation. PAST SURGICAL HISTORY: Positive for cerebral palsy, mental retardation, blindness. ALLERGIES: No known allergies. MEDICATION: Medications include Tylenol, albuterol, vancomycin, Zosyn, fentanyl, Solu-Medrol, Versed. SOCIAL HISTORY: As per HPI. LABORATORY DATA: White count on admission 12.1, presently 4.7, hematocrit 41.6, creatinine 0.6. Urinalysis negative. PHYSICAL EXAMINATION: General: On exam, he is sedated on the ventilator. Vital signs: Temperature 97.9, blood pressure 100/65, pulse 107 regular, respirations 18 per minute. HEENT: Sclerae anicteric. Patient is orally intubated. Cardiovascular: Heart sounds S1, S2. Lungs: Air entry bilaterally. Abdomen: Soft, nontender. Extremities: Negative for edema. IMPRESSION: 1. Respiratory failure. 2. Rule out community acquired versus atypical pneumonia. 3. Cerebral palsy, mental retardation. 4. Hypothermia. Await cultures. Obtain suction sputum, culture and sensitivity, urine legionella and pneumococcal antigens, empiric antibiotic coverage with ceftriaxone and Zithromax. Will follow, thank you for the kind referral. JEFFREY NAM M.D. [id number]
[2019-09-18] MEDS: CEFTRIAXONE 2 GM in DEXTROSE 5%-WATER 100 ML IVPB SCH (17:20)
[2019-09-18] MEDS ORDERED: MIDAZOLAM IN 0.9 % SOD.CHLORID 1 MG/1 ML PLAST..BAG ONE (18:01)
--- NOTE | 2019-09-18 19:08 | PN ---
Progress Note (short form) - Note Progress Note: Hospitalist Medicine Pt with cough, lethargy, sputum at "[place]" home. Was hypoxic, hypothermic and subsequently intubated and placed on propofol and versed, raffy hugger. ICU was consulted and accepted pt, however no beds yet. NGT, borrego placed in ED. On a/c. ABG have been monitored. Meds rec from home. Ms. Beena Scherer is pt job lithographer [phone] from home At baseline, aid states that pt ambulates with assistance and is verbal, however speaks few words. Vitals 09/18/19 17:00 Temperature 98.4 F Pulse Rate [ 103 H Left Radial] Respiratory 19 Rate Blood Pressure 104/66 [Left Arm] O2 Sat by Pulse 96 Oximetry (%) Physical exam general: intubated, sedated on prop, versed gtt. HEENT: +ncat, perrla neck: supple cardio: tachy rate. S1, S2 rrr. no r/m/g pulm: Cta b/l abdomen: soft, nontender, nondistended LE: contracted, without edema +borrego +NGT +intubated Laboratory Tests 09/18/19 09/18/19 09/18/19 10:14 12:10 12:10 WBC 7.7 Hgb 13.7 Hct 40.0 Plt Count 167 ABG pH 7.42 ABG pCO2 at Pt Temp 42.6 ABG pO2 at Pt Temp 112 H ABG HCO3 27.1 H ABG O2 Sat (Measured) 98.2 H ABG O2 Content 19.8 ABG Base Excess 2.7 H Sodium 140 Potassium 4.2 Chloride 107 Carbon Dioxide 28 Anion Gap 6 L BUN 13.9 Calcium 8.2 L Phosphorus 3.4 Magnesium 1.6 L Total Protein 5.7 L Albumin 2.9 L Adenovirus (PCR) Human Metapneumovir PCR Influenza A (H1) PCR Influenza B (RT-PCR) Parainfluenza 1 (PCR) Parainfluenza 2 (PCR) Parainfluenza 3 (PCR) RSV Type A (PCR) RSV Type B (PCR) Rhinovirus (PCR) 09/18/19 14:30 WBC Hgb Hct Plt Count ABG pH ABG pCO2 at Pt Temp ABG pO2 at Pt Temp ABG HCO3 ABG O2 Sat (Measured) ABG O2 Content ABG Base Excess Sodium Potassium Chloride Carbon Dioxide Anion Gap BUN Calcium Phosphorus Magnesium Total Protein Albumin Adenovirus (PCR) Pending Human Metapneumovir PCR Pending Influenza A (H1) PCR Pending Influenza B (RT-PCR) Pending Parainfluenza 1 (PCR) Pending Parainfluenza 2 (PCR) Pending Parainfluenza 3 (PCR) Pending RSV Type A (PCR) Pending RSV Type B (PCR) Pending Rhinovirus (PCR) Pending Micro Ucx - sent, pending Blood cx - sent , pending EKG: sinus tach rate 121bpm, 462msqtc Imaging 09/17: slight increase in lung markings at left base - early infiltrate or atelectasis. angles are sharp. compared to prior study of 08/25/19 Most recent CXR: 09/18: +ETT, NGT in place, R infiltrate has diminished. L infiltrate has become more pronounced in the L infrahilar area and has become a bit rounded. mediastinum is not widened. angles are sharp. soft tissues intact. Assessment/plan 34 y/o M with hx of cerebral palsy, intellectual disability, and blindness BIBEMS from facility because of lethargy and cough with increasing sputum production found to be septic, hypothermic, with presumed aspiration pneumonia source. Patient with acute hypoxic hypercapnic respiratory failure - intubated, sedated, peripheral warming provided in the ED along with vanc, zosyn, IVF. #sepsis 2/2 likely aspiration PNA #acute hypoxic RF -given pt change in status, lethargy, hx CP -received vanc zosyn in ER. c/w ceftriaxone, zithromax (Day1) -c/t monitor qtc -f/u ucx, blood cx. u legionella, sputum cx ordered. lactic, UA WNL -c/w duonebs RQID, nebs PRN -medrol 40q8h -AM sedation trials to assess mental status -f/u AM CXR -f/u RSV panel. flu (-) -ID on board: Dr. Roque #F/E/N IV NS 83 cc/hr continue to follow lytes NPO; intubated. has NGT #PPX DVT: hep 5k sq tid GI: protonix #Dispo accepted to ICU; no beds. still in ER
[2019-09-18] MEDS ORDERED: ALBUTEROL SO4 0.083% IH SOL 2.5 MG/3 ML VIAL.NEB. NEB PRN (19:17)
[2019-09-18] MEDS ORDERED: PANTOPRAZOLE SODIUM 40 MG VIAL ONE (19:59)
[2019-09-18] MEDS ORDERED: ALBUTEROL SO4 2.5/IPRATROPIUM 0.5 INH SOL 3 ML VIAL.NEB. NEB ONE ×2 (19:59→20:46)
[2019-09-18] MEDS: PANTOPRAZOLE SODIUM 40 MG VIAL IVPUSH SCH (20:14)
[2019-09-18] MEDS: ALBUTEROL SO4 2.5/IPRATROPIUM 0.5 INH SOL 3 ML VIAL.NEB. NEB SCH (21:15)
[2019-09-19] MEDS ORDERED: PROPOFOL 1,000,000 MCG/100 ML VIAL ONE (01:37)
[2019-09-19] MEDS: PROPOFOL 1,000,000 MCG/100 ML VIAL IVPUSH SCH ×2 (02:45→08:32)
[2019-09-19] MEDS: SODIUM CHLORIDE 1,000 ML IV SCH (03:00)
[2019-09-19 04:28] VITALS: BMI 21.9
[2019-09-19] MEDS: HEPARIN NA (PORCINE) 5,000 UNITS/ML 1ML VIAL SQ SCH ×3 (05:03→22:18)
[2019-09-19] MEDS: methylPREDNISolone NA SUCC 40 MG/1 ML VIAL IVPUSH SCH ×3 (05:03→22:25)
[2019-09-19 06:47] LABS: BASO % 0.1 % (0-2.0); EOS % 0.1 % (0-4.5); HEMATOCRIT 36.9 % (35.4-49); HEMOGLOBIN 12.9 GM/dL (11.7-16.9); LYMPH % 7.5 % (8-40); MCHC 34.9 g/dl (32.0-35.9); MEAN CELL VOLUME 83.2 fl (80-96); MEAN PLT VOLUME 9.3 fl (7.5-11.1); MONO % 8.3 % (3.8-10.2); PLATELET COUNT 180 K/MM3 (134-434); RBC 4.43 M/mm3 (4.00-5.60); RDW 13.3 % (11.9-15.9); WHITE BLOOD COUNT 10.1 K/mm3 (4.0-10.0)
[2019-09-19 07:25] LABS: ALBUMIN 2.7 g/dl (3.4-5.0); BILIRUBIN,TOTAL 0.4 mg/dL (0.2-1); BLOOD UREA NITROGEN 10.1 mg/dL (7-18); CALCIUM 8.4 mg/dL (8.5-10.1); CREATININE 0.6 mg/dL (0.55-1.3); MAGNESIUM 2.3 mg/dL (1.8-2.4); PHOSPHOROUS 3.2 mg/dL (2.5-4.9); TOT PROT 5.7 g/dl (6.4-8.2)
[2019-09-19] MEDS: ALBUTEROL SO4 2.5/IPRATROPIUM 0.5 INH SOL 3 ML VIAL.NEB. NEB SCH ×3 (08:05→15:20)
[2019-09-19] MEDS ORDERED: DEXTROSE 5%-WATER 100 ML IVPB ONE (09:40)
--- NOTE | 2019-09-19 10:07 | PN ---
Addendum entered and electronically signed by Julissa Smiley, RESIDENT 09/19/19 17 :26: -pt now extubated -tapered to medrol 40mg BID Original Note: Progress Note (short form) - Note Progress Note: Hospitalist Medicine Seen in ICU. On prop, versed gtt. Appears comfortable on vent, a/c. Plan for sedation vacation, SBT trials as permitted per ICU team. Vitals 09/19/19 09/19/19 06:00 08:00 Temperature 98 F Pulse Rate 86 Respiratory 18 Rate Blood Pressure 124/88 Physical exam general: intubated, sedated on prop, versed gtt. HEENT: +ncat, perrla neck: supple cardio: S1, S2 rrr. no r/m/g pulm: Cta b/l. no accessory m usage abdomen: soft, nontender, nondistended LE: contracted, without edema +borrego +NGT +intubated Laboratory Tests 09/18/19 09/18/19 09/19/19 05:00 14:30 05:55 WBC 10.1 H Hgb 12.9 Hct 36.9 Plt Count 180 Sodium Potassium Chloride Carbon Dioxide BUN Creatinine Random Glucose Total Protein Albumin Adenovirus (PCR) Pending Human Metapneumovir PCR Pending Influenza A (Rapid) Negative Influenza A (H1) PCR Pending Influenza B (Rapid) Negative Influenza B (RT-PCR) Pending Parainfluenza 1 (PCR) Pending Parainfluenza 2 (PCR) Pending Parainfluenza 3 (PCR) Pending RSV Type A (PCR) Pending RSV Type B (PCR) Pending Rhinovirus (PCR) Pending 09/19/19 05:55 WBC Hgb Hct Plt Count Sodium 142 Potassium 4.0 Chloride 109 H Carbon Dioxide 28 BUN 10.1 Creatinine 0.6 Random Glucose 119 H Total Protein 5.7 L Albumin 2.7 L Adenovirus (PCR) Human Metapneumovir PCR Influenza A (Rapid) Influenza A (H1) PCR Influenza B (Rapid) Influenza B (RT-PCR) Parainfluenza 1 (PCR) Parainfluenza 2 (PCR) Parainfluenza 3 (PCR) RSV Type A (PCR) RSV Type B (PCR) Rhinovirus (PCR) Microbiology 09/18/19 00:30 Urine - Urine - Catheterized Urine Culture - Final NO GROWTH OBTAINED 09/17/19 23:03 Blood - Peripheral Venous Blood Culture - Preliminary NO GROWTH OBTAINED AFTER 24 HOURS, INCUBATION TO CONTINUE FOR 4 DAYS. 09/17/19 23:03 Blood - Peripheral Venous Blood Culture - Preliminary NO GROWTH OBTAINED AFTER 24 HOURS, INCUBATION TO CONTINUE FOR 4 DAYS. EKG: sinus tach rate 121bpm, 462msqtc Imaging 09/17: slight increase in lung markings at left base - early infiltrate or atelectasis. angles are sharp. compared to prior study of 08/25/19 Most recent CXR: 09/18: +ETT, NGT in place, R infiltrate has diminished. L infiltrate has become more pronounced in the L infrahilar area and has become a bit rounded. mediastinum is not widened. angles are sharp. soft tissues intact. Assessment/plan 34 y/o M with hx of cerebral palsy, intellectual disability, and blindness BIBEMS from facility because of lethargy and cough with increasing sputum production found to be septic, hypothermic, with presumed aspiration pneumonia source. Patient with acute hypoxic hypercapnic respiratory failure - intubated, sedated, peripheral warming provided in the ED along with vanc, zosyn, IVF. #sepsis 2/2 likely aspiration PNA #acute hypoxic RF -given pt change in status, lethargy, hx CP -received vanc zosyn in ER. c/w ceftriaxone, zithromax (Day2) -c/t monitor qtc ; repeat EKG today -f/u ucx, blood cx. u legionella, sputum cx ordered. lactic, UA WNL -c/w duonebs RQID, nebs PRN -medrol 40q8h -AM sedation trials to assess mental status -f/u RSV panel. flu (-) -ID on board: Dr. Roque #F/E/N IV NS 83 cc/hr continue to follow lytes NPO; intubated. has NGT #PPX DVT: hep 5k sq tid GI: protonix #Dispo cont'd ICU management <Julissa Smiley - Last Filed: 09/19/19 17:25> - Note Progress Note: Seen and examined; agree with above aside from as supplemented below by myself. Personally verified all historical information and alex PE findings. Independently reviewed all labs and diagnostics. I discussed the case at length with the resident and consulting services. All questions answered. Seen in ICU Extubating this AM; seen early on prior. No new complaints. Stable exam and not acutely agitated. Continue with IV steroids. FU with PCCM and ID consults. Couldn't obtain ROS due to underlying clinical status of being intubated NAD, intubated on vent, moves all 4 etremity and responds to tactile stimuli CN2-12 wnl, no fnd and no obvious neuro deficits Vent associated breath sounds with some rales and scattered ronchi, w/ sym exp NT ND +BS HR wnl, +s1/2 Skin without new rashes or breakdown Trachea midline with no LN Microbiology pending A/P: Patient presents with acute respiratory failure requiring mechanical intubation ; they have underlying developmental delay. In ICU managing with PCCM. Extubate and continue IV steroids and monitor in the unit. Ensure home medications are continued. Problems include: -Acute respiratory failure secondary to L-sided CAP (negative flu, cultures with NGTD, negative UAg's, CXR results appreciated, viral PCR pending. Extubate and monitor secretions. Likely aspiration component. 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 Added seizure precautions.) Full Code <Isiah Johnson - Last Filed: 09/20/19 08:54>
[2019-09-19] MEDS: CEFTRIAXONE 2 GM in DEXTROSE 5%-WATER 100 ML IVPB SCH (10:24)
[2019-09-19] MEDS: PANTOPRAZOLE SODIUM 40 MG VIAL IVPUSH SCH (10:24)
[2019-09-19] MEDS: AZITHROMYCIN IVPB 500 MG/250 ML BAG IVPB SCH (10:25)
--- NOTE | 2019-09-19 11:08 | PN ---
Physical Exam: SUBJECTIVE: Patient seen and examined on AM rounds. No acute overnight events. Patient on Versed 5, Propofol 30 and IVF overnight. FiO2 down to 40% on vent. Patient trialled on CPAP, off sedation, extubated during attending rounds. Supervising RN at patient's facility requests documentation of possible aspiration pneumonia "for the state" DANIELLE Santo ([phone]). Continued on ceftriaxone / zithromax. OBJECTIVE: Vital Signs Period Temp Pulse Resp BP Sys/Horne Pulse Ox Last 24 Hr 97.4 F-98.4 F 84-108 12- 93-129/57-99 96-100 GENERAL: Intubated/sedated initially EYES: PERRL EARS, NOSE, THROAT: Dry mucous membranes NECK: No lymphadenopathy, JVD, or masses LUNGS: Rhonchorous breath sounds HEART: Tachy, no murmurs appreciaed ABDOMEN: No grimacing to palpation, +BS UPPER EXTREMITIES: 2+ pulses, contracted LOWER EXTREMITIES: 2+ pulses, no peripheral edema SKIN: Cold, no rashes or lesions noted Laboratory Results - last 24 hr 09/18/19 09/18/19 09/19/19 12:10 12:10 05:55 WBC 7.7 10.1 H RBC 4.78 4.43 Hgb 13.7 12.9 Hct 40.0 36.9 MCV 83.7 83.2 MCH 28.6 29.0 MCHC 34.1 34.9 RDW 13.3 13.3 Plt Count 167 180 MPV 8.6 9.3 Absolute Neuts (auto) 6.8 8.5 H Neutrophils % 87.8 H 84.0 H Lymphocytes % 5.4 L D 7.5 L D Monocytes % 5.9 8.3 Eosinophils % 0.8 0.1 D Basophils % 0.1 0.1 Nucleated RBC % 0 0 Sodium 140 Potassium 4.2 Chloride 107 Carbon Dioxide 28 Anion Gap 6 L BUN 13.9 Creatinine 0.7 Est GFR (CKD-EPI)AfAm 143.71 Est GFR (CKD-EPI)NonAf 123.99 Random Glucose 98 Calcium 8.2 L Phosphorus 3.4 Magnesium 1.6 L Total Bilirubin 0.8 AST 20 ALT 21 Alkaline Phosphatase 83 Total Protein 5.7 L Albumin 2.9 L 09/19/19 05:55 WBC RBC Hgb Hct MCV MCH MCHC RDW Plt Count MPV Absolute Neuts (auto) Neutrophils % Lymphocytes % Monocytes % Eosinophils % Basophils % Nucleated RBC % Sodium 142 Potassium 4.0 Chloride 109 H Carbon Dioxide 28 Anion Gap 4 L BUN 10.1 Creatinine 0.6 Est GFR (CKD-EPI)AfAm 153.11 Est GFR (CKD-EPI)NonAf 132.10 Random Glucose 119 H Calcium 8.4 L Phosphorus 3.2 Magnesium 2.3 Total Bilirubin 0.4 AST 33 ALT 22 Alkaline Phosphatase 77 Total Protein 5.7 L Albumin 2.7 L Active Medications Generic Name Dose Route Start Last Admin Trade Name Freq PRN Reason Stop Dose Admin Acetaminophen 1,000 mg 09/18/19 07:49 Ofirmev Injection - IVPB Q6H PRN FEVER Albuterol Sulfate 1 amp 09/18/19 19:17 Ventolin 0.083% Nebulizer Soln - NEB Q4H PRN SHORT OF BREATH/WHEEZING Albuterol/Ipratropium 1 amp 09/18/19 20:00 09/18/19 21:15 Duoneb - NEB 1 amp RQID ASHA Administration Chlorhexidine Gluconate 1 applic 09/19/19 22:00 Hibiclens For Decolonization - TP HS ASHA Heparin Sodium (Porcine) 5,000 unit 09/18/19 06:00 09/19/19 05:03 Heparin - SQ 5,000 unit TID ASHA Administration Sodium Chloride 1,000 mls @ 83 mls/hr 09/18/19 01:15 09/19/19 03:00 Normal Saline - IV 83 mls/hr ASDIR ASHA Administration Ceftriaxone Sodium 2 gm/ 100 mls @ 200 mls/hr 09/18/19 15:30 09/19/19 10:24 Dextrose IVPB 200 mls/hr DAILY ASHA Administration Protocol Azithromycin 500 mg in 250 mls @ 250 mls/hr 09/18/19 16:37 09/19/19 10:25 Zithromax 500mg Ivpb (Pre-Docked) IVPB 250 mls/hr DAILY ASHA Administration Methylprednisolone Sodium Succinate 40 mg 09/18/19 10:00 09/19/19 10:24 Solu-Medrol - IVPUSH 40 mg Q8H-IV ASHA Administration Mupirocin 1 applic 09/19/19 10:00 Bactroban Ointment (For Decolonization) - NS 09/24/19 09:59 BID ASHA Pantoprazole Sodium 40 mg 09/18/19 19:30 09/19/19 10:24 Protonix Iv IVPUSH 40 mg DAILY ASHA Administration ASSESSMENT/PLAN: 34 y/o M with hx of cerebral palsy, intellectual disability, and blindness BIBEMS from facility because of lethargy and cough with increasing sputum production found to be septic, hypothermic, with presumed aspiration pneumonia source. Patient with acute hypoxic hypercapnic respiratory failure - intubated, sedated, peripheral warming provided in the ED along with broad spectrum IV ABX and fluids. Now extubated (09/19), with continued ABX. #Neuro: - Off sedation - Pain control as needed #CV: - Monitor vitals, HDS at this time - Maintain MAPs >65 #Pulm: - Extubated 09/19, tolerating venturi mask well - Aspiration precautions - Repeat CXR #Renal: - Monitor lytes, replete as necessary - Monitor I&Os - IVF, s/p bolus in ED, on maintenance fluids now #ID: - S/p Vanc / Zosyn in the ED - Continue ceftriaxone / Zithromax per ID - Monitor for fever, leukocytosis - F/u cultures - ID consulted, appreciate recs - Repeat lactic acid - Flu swab negative - F/u Viral panel, pending #GI: - Will advance diet as tolerated, aspiration risk #PPX: - Mechanical SCDs #Dispo: -Continued ICU monitoring Visit type - Emergency Visit Emergency Visit: Yes ED Registration Date: 09/18/19 Care time: The patient presented to the Emergency Department on the above date and was hospitalized for further evaluation of their emergent condition. - New Patient This patient is new to me today: No - Critical Care Critical Care patient: Yes Total Critical Care Time (in minutes): 36 Critical Care Statement: The care of this patient involved high complexity decision making to prevent further life threatening deterioration of the patient 's condition and/or to evaluate & treat vital organ system(s) failure or risk of failure. ATTENDING PHYSICIAN STATEMENT I saw and evaluated the patient. I reviewed the resident's note and discussed the case with the resident. I agree with the resident's findings and plan as documented. SUBJECTIVE: OBJECTIVE: ASSESSMENT AND PLAN:
[2019-09-19] MEDS: MUPIROCIN 2% TOPICAL OINTMENT FOR DECOLONIZATION NS SCH ×2 (11:27→22:17)
--- NOTE | 2019-09-19 11:38 | PN ---
Teaching Attending Note Name of Resident: Per Marie ATTENDING PHYSICIAN STATEMENT I saw and evaluated the patient. I reviewed the resident's note and discussed the case with the resident. I agree with the resident's findings and plan as documented. SUBJECTIVE: Pt seen and examined in the ICU. Intubated, oxygenating well on 40% FiO2. Tolerated CPAP/PS trials and subsequently extubated during rounds. OBJECTIVE: Vital Signs Period Temp Pulse Resp BP Sys/Horne Pulse Ox Last 24 Hr 97.4 F-98.4 F 84-108 12- 93-129/57-99 96-100 Intake & Output 09/16/19 09/17/19 09/18/19 09/19/19 23:59 23:59 23:59 23:59 Intake Total 1000 406 Output Total 1150 800 Balance -150 -394 Weight 74.843 kg 65.317 kg Gen: extubated Heart: RRR Lung: decreased breath sounds at the bases Abd: soft, nontender Ext: no edema CBC, BMP 09/19/19 05:55 09/19/19 05:55 Active Medications Acetaminophen (Ofirmev Injection -) 1,000 mg IVPB Q6H PRN PRN Reason: FEVER Albuterol Sulfate (Ventolin 0.083% Nebulizer Soln -) 1 amp NEB Q4H PRN PRN Reason: SHORT OF BREATH/WHEEZING Albuterol/Ipratropium (Duoneb -) 1 amp NEB RQID ASHA Last Admin: 09/19/19 08:05 Dose: 1 amp Chlorhexidine Gluconate (Hibiclens For Decolonization -) 1 applic TP HS ASHA Heparin Sodium (Porcine) (Heparin -) 5,000 unit SQ TID ASHA Last Admin: 09/19/19 05:03 Dose: 5,000 unit Sodium Chloride (Normal Saline -) 1,000 mls @ 83 mls/hr IV ASDIR ASHA Last Admin: 09/19/19 03:00 Dose: 83 mls/hr Ceftriaxone Sodium 2 gm/ (Dextrose) 100 mls @ 200 mls/hr IVPB DAILY [facility]; Protocol Last Admin: 09/19/19 10:24 Dose: 200 mls/hr Azithromycin (Zithromax 500mg Ivpb (Pre-Docked)) 500 mg in 250 mls @ 250 mls/ hr IVPB DAILY [facility] Last Admin: 09/19/19 10:25 Dose: 250 mls/hr Methylprednisolone Sodium Succinate (Solu-Medrol -) 40 mg IVPUSH Q8H-IV [facility] Last Admin: 09/19/19 10:24 Dose: 40 mg Mupirocin (Bactroban Ointment (For Decolonization) -) 1 applic NS BID [facility] Stop: 09/24/19 09:59 Last Admin: 09/19/19 11:27 Dose: 1 applic Pantoprazole Sodium (Protonix Iv) 40 mg IVPUSH DAILY [facility] Last Admin: 09/19/19 10:24 Dose: 40 mg ASSESSMENT AND PLAN: Acute Hypoxic and Hypercapneic Respiratory Failure improving Pneumonia likely Aspiration Sepsis Cerebral Palsy Mental Retardation - antibiotics to cover aspiration - f/u cultures - IVF - taper steroids - inhaled bronchodilators - taper Fio2 to keep SpO2 >90% - aspiration precautions - DVT/GI prophylaxis - ICU monitoring critical care time spent in reviewing chart, evaluating patient and formulating plan 35 min
--- NOTE | 2019-09-19 18:18 | PN ---
Progress Note, Physician History of Present Illness: EXTUBATED BREATHING NON LABORED AFEBRILE C/S PENDING - Current Medication List Current Medications: Active Medications Acetaminophen (Ofirmev Injection -) 1,000 mg IVPB Q6H PRN PRN Reason: FEVER Albuterol Sulfate (Ventolin 0.083% Nebulizer Soln -) 1 amp NEB Q4H PRN PRN Reason: SHORT OF BREATH/WHEEZING Albuterol/Ipratropium (Duoneb -) 1 amp NEB RQID [facility] Last Admin: 09/19/19 15:20 Dose: 1 amp Chlorhexidine Gluconate (Hibiclens For Decolonization -) 1 applic TP HS ASHA Heparin Sodium (Porcine) (Heparin -) 5,000 unit SQ TID [facility] Last Admin: 09/19/19 13:12 Dose: 5,000 unit Sodium Chloride (Normal Saline -) 1,000 mls @ 83 mls/hr IV ASDIR [facility] Last Admin: 09/19/19 03:00 Dose: 83 mls/hr Ceftriaxone Sodium 2 gm/ (Dextrose) 100 mls @ 200 mls/hr IVPB DAILY [facility]; Protocol Last Admin: 09/19/19 10:24 Dose: 200 mls/hr Azithromycin (Zithromax 500mg Ivpb (Pre-Docked)) 500 mg in 250 mls @ 250 mls/ hr IVPB DAILY [facility] Last Admin: 09/19/19 10:25 Dose: 250 mls/hr Methylprednisolone Sodium Succinate (Solu-Medrol -) 40 mg IVPUSH BID [facility] Mupirocin (Bactroban Ointment (For Decolonization) -) 1 applic NS BID [facility] Stop: 09/24/19 09:59 Last Admin: 09/19/19 11:27 Dose: 1 applic Pantoprazole Sodium (Protonix Iv) 40 mg IVPUSH DAILY [facility] Last Admin: 09/19/19 10:24 Dose: 40 mg - Objective Vital Signs: Vital Signs Temperature 98.0 F 09/19/19 14:00 Pulse Rate 100 H 09/19/19 16:00 Respiratory Rate 24 H 09/19/19 16:00 Blood Pressure 122/74 09/19/19 16:00 O2 Sat by Pulse Oximetry (%) 99 09/19/19 11:15 Constitutional: Yes: No Distress Eyes: Yes: Conjunctiva Clear Cardiovascular: Yes: Regular Rate and Rhythm, S1, S2 Respiratory: Yes: Diminished Gastrointestinal: Yes: Normal Bowel Sounds, Soft. No: Tenderness Labs: CBC, BMP 09/19/19 05:55 09/19/19 05:55 INR, PTT INR 1.21 (0.83-1.09) H 09/17/19 22:30 Assessment/Plan S/P RESP FAILURE PNEUMONIA CP/MR CONTINUE CEFTRIAXONE/ ZITHROMAX
[2019-09-19] MEDS: CHLORHEXIDINE GLUCONATE 4% CLEANSER FOR DECOLONIZATION TP SCH (22:19)
[2019-09-20] MEDS ORDERED: LORazepam 2 MG/ML SDV VIAL ONE (00:09)
[2019-09-20] MEDS ORDERED: LORazepam 2 MG/ML SDV VIAL IVPUSH ONE ×2 (00:11→00:35)
[2019-09-20] MEDS ORDERED: HALOPERIDOL LACTATE 5 MG/ML IM ONE (00:30)
[2019-09-20] MEDS: SODIUM CHLORIDE 1,000 ML IV SCH ×2 (02:36→09:17)
[2019-09-20 07:13] LABS: BASO % 0.3 % (0-2.0); HEMOGLOBIN 12.5 GM/dL (11.7-16.9); MCH 28.7 pg (25.7-33.7); MCHC 34.6 g/dl (32.0-35.9); MEAN CELL VOLUME 82.9 fl (80-96); MONO % 5.8 % (3.8-10.2); NEUT % 88.9 % (42.8-82.8); PLATELET COUNT 207 K/MM3 (134-434); RBC 4.34 M/mm3 (4.00-5.60); RDW 13.3 % (11.9-15.9); WHITE BLOOD COUNT 12.5 K/mm3 (4.0-10.0)
[2019-09-20] MEDS: ALBUTEROL SO4 2.5/IPRATROPIUM 0.5 INH SOL 3 ML VIAL.NEB. NEB SCH ×4 (07:43→21:10)
[2019-09-20] MEDS: HEPARIN NA (PORCINE) 5,000 UNITS/ML 1ML VIAL SQ SCH ×3 (08:01→21:42)
[2019-09-20 08:26] LABS: BILIRUBIN,TOTAL 0.5 mg/dL (0.2-1); BLOOD UREA NITROGEN 12.6 mg/dL (7-18); CALCIUM 8.8 mg/dL (8.5-10.1); CREATININE 0.6 mg/dL (0.55-1.3); MAGNESIUM 1.9 mg/dL (1.8-2.4); PHOSPHOROUS 2.6 mg/dL (2.5-4.9); POTASSIUM 3.7 mmol/L (3.5-5.1); TOT PROT 6.3 g/dl (6.4-8.2)
--- NOTE | 2019-09-20 09:14 | PN ---
Teaching Attending Note Name of Resident: Donato Suarez ATTENDING PHYSICIAN STATEMENT I saw and evaluated the patient. I reviewed the resident's note and discussed the case with the resident. I agree with the resident's findings and plan as documented. SUBJECTIVE: Pt seen and examined in the ICU. Remains extubated but tachypneic at rest. Saturating well on nasal cannula. OBJECTIVE: Vital Signs Period Temp Pulse Resp BP Sys/Horne Pulse Ox Last 24 Hr 96.8 F-98.6 F 93-129 17-26 122-161/74-113 99-99 Intake & Output 09/17/19 09/18/19 09/19/19 09/20/19 23:59 23:59 23:59 23:59 Intake Total 1000 1806 830 Output Total 1150 1700 1500 Balance -150 106 -670 Weight 74.843 kg 65.317 kg Gen: tachypneic at rest Heart: RRR Lung: scattered rhonchi Abd: soft, nontender Ext: no edema CBC, BMP 09/20/19 06:26 09/20/19 06:26 Active Medications Acetaminophen (Ofirmev Injection -) 1,000 mg IVPB Q6H PRN PRN Reason: FEVER Albuterol Sulfate (Ventolin 0.083% Nebulizer Soln -) 1 amp NEB Q4H PRN PRN Reason: SHORT OF BREATH/WHEEZING Albuterol/Ipratropium (Duoneb -) 1 amp NEB RQID [facility] Last Admin: 09/19/19 15:20 Dose: 1 amp Benztropine Mesylate (Cogentin -) 0.5 mg PO BID [facility] Chlorhexidine Gluconate (Hibiclens For Decolonization -) 1 applic TP HS [facility] Last Admin: 09/19/19 22:19 Dose: 1 applic Clonazepam (Klonopin -) 1 mg PO BID [facility] Haloperidol (Haldol -) 5 mg PO BID [facility] Heparin Sodium (Porcine) (Heparin -) 5,000 unit SQ TID [facility] Last Admin: 09/20/19 08:01 Dose: 5,000 unit Sodium Chloride (Normal Saline -) 1,000 mls @ 83 mls/hr IV ASDIR [facility] Last Admin: 09/20/19 02:36 Dose: 83 mls/hr Ceftriaxone Sodium 2 gm/ (Dextrose) 100 mls @ 200 mls/hr IVPB DAILY [facility]; Protocol Last Admin: 09/19/19 10:24 Dose: 200 mls/hr Azithromycin (Zithromax 500mg Ivpb (Pre-Docked)) 500 mg in 250 mls @ 250 mls/ hr IVPB DAILY [facility] Last Admin: 09/19/19 10:25 Dose: 250 mls/hr Methylprednisolone Sodium Succinate (Solu-Medrol -) 40 mg IVPUSH BID [facility] Last Admin: 09/19/19 22:25 Dose: 40 mg Mupirocin (Bactroban Ointment (For Decolonization) -) 1 applic NS BID [facility] Stop: 09/24/19 09:59 Last Admin: 09/19/19 22:17 Dose: 1 applic Pantoprazole Sodium (Protonix Iv) 40 mg IVPUSH DAILY [facility] Last Admin: 09/19/19 10:24 Dose: 40 mg ASSESSMENT AND PLAN: Acute Hypoxic and Hypercapneic Respiratory Failure improving Pneumonia likely Aspiration Sepsis Cerebral Palsy Mental Retardation - antibiotics to cover aspiration - f/u cultures - IVF - taper steroids - inhaled bronchodilators - taper Fio2 to keep SpO2 >90% - aspiration precautions - DVT/GI prophylaxis - ICU monitoring
--- NOTE | 2019-09-20 09:22 | PN ---
Physical Exam: SUBJECTIVE: Patient seen and examined. No acute events overnight. Patient currently tachypneic at rest. saturating well on NC. OBJECTIVE: Vital Signs Period Temp Pulse Resp BP Sys/Horne Pulse Ox Last 24 Hr 96.8 F-98.6 F 93-129 17- 122-161/74-113 99-99 GENERAL: awake, nonverbal, tachypneic EYES: PERRL ENT: moist mucous membranes. NECK: supple. LUNGS: +rhonchi HEART: RRR ABDOMEN: Soft, no grimacing to palpation EXTREMITIES: 2+ pulses, no edema Laboratory Results - last 24 hr 09/20/19 09/20/19 06:26 06:26 WBC 12.5 H RBC 4.34 Hgb 12.5 Hct 36.0 MCV 82.9 MCH 28.7 MCHC 34.6 RDW 13.3 Plt Count 207 MPV 9.0 Absolute Neuts (auto) 11.1 H Neutrophils % 88.9 H Lymphocytes % 5.0 L D Monocytes % 5.8 Eosinophils % 0.0 D Basophils % 0.3 Nucleated RBC % 0 Sodium 142 Potassium 3.7 Chloride 111 H Carbon Dioxide 25 Anion Gap 6 L BUN 12.6 Creatinine 0.6 Est GFR (CKD-EPI)AfAm 153.11 Est GFR (CKD-EPI)NonAf 132.10 Random Glucose 100 Calcium 8.8 Phosphorus 2.6 Magnesium 1.9 Total Bilirubin 0.5 AST 54 H ALT 30 Alkaline Phosphatase 81 Total Protein 6.3 L Albumin 3.0 L ASSESSMENT/PLAN: #Acute Hypoxic Hypercapneic Respiratory Failure now improving #Aspiration PNA #Sepsis #Cerebral palsy #Blindness -s/p intubation now extubated -cont. IV abx -IV fluids:decrease rate -taper steroids -duonebs -FU cultures -aspiration precautions -dvt ppx Visit type - Emergency Visit Emergency Visit: Yes ED Registration Date: 09/18/19 Care time: The patient presented to the Emergency Department on the above date and was hospitalized for further evaluation of their emergent condition. - New Patient This patient is new to me today: Yes Date on this admission: 09/20/19 - Critical Care Critical Care patient: Yes Total Critical Care Time (in minutes): 35 Critical Care Statement: The care of this patient involved high complexity decision making to prevent further life threatening deterioration of the patient 's condition and/or to evaluate & treat vital organ system(s) failure or risk of failure. ATTENDING PHYSICIAN STATEMENT I saw and evaluated the patient. I reviewed the resident's note and discussed the case with the resident. I agree with the resident's findings and plan as documented. SUBJECTIVE: OBJECTIVE: ASSESSMENT AND PLAN:
[2019-09-20] MEDS ORDERED: DEXTROSE 5%-WATER 100 ML IVPB ONE (10:17)
[2019-09-20] MEDS: clonazePAM 0.5 MG TABLET PO SCH ×2 (10:19→21:41)
[2019-09-20] MEDS: methylPREDNISolone NA SUCC 40 MG/1 ML VIAL IVPUSH SCH ×2 (10:19→21:41)
[2019-09-20] MEDS: CEFTRIAXONE 2 GM in DEXTROSE 5%-WATER 100 ML IVPB SCH (10:19)
[2019-09-20] MEDS: MUPIROCIN 2% TOPICAL OINTMENT FOR DECOLONIZATION NS SCH ×2 (10:20→21:44)
[2019-09-20] MEDS: PANTOPRAZOLE SODIUM 40 MG VIAL IVPUSH SCH (10:21)
[2019-09-20] MEDS: AZITHROMYCIN IVPB 500 MG/250 ML BAG IVPB SCH (10:46)
[2019-09-20] MEDS: BENZTROPINE MESYLATE 0.5 MG TABLET (FP) PO SCH ×2 (11:36→22:00)
--- NOTE | 2019-09-20 11:36 | PN ---
Progress Note, Physician History of Present Illness: REMAINS EXTUBATED BREATHING NON LABORED AFEBRILE - Current Medication List Current Medications: Active Medications Acetaminophen (Ofirmev Injection -) 1,000 mg IVPB Q6H PRN PRN Reason: FEVER Albuterol Sulfate (Ventolin 0.083% Nebulizer Soln -) 1 amp NEB Q4H PRN PRN Reason: SHORT OF BREATH/WHEEZING Albuterol/Ipratropium (Duoneb -) 1 amp NEB RQID [facility] Last Admin: 09/20/19 07:43 Dose: 1 amp Benztropine Mesylate (Cogentin -) 0.5 mg PO BID [facility] Chlorhexidine Gluconate (Hibiclens For Decolonization -) 1 applic TP HS [facility] Last Admin: 09/19/19 22:19 Dose: 1 applic Clonazepam (Klonopin -) 1 mg PO BID [facility] Last Admin: 09/20/19 10:19 Dose: 1 mg Haloperidol (Haldol -) 5 mg PO BID [facility] Heparin Sodium (Porcine) (Heparin -) 5,000 unit SQ TID [facility] Last Admin: 09/20/19 08:01 Dose: 5,000 unit Ceftriaxone Sodium 2 gm/ (Dextrose) 100 mls @ 200 mls/hr IVPB DAILY [facility]; Protocol Last Admin: 09/20/19 10:19 Dose: 200 mls/hr Azithromycin (Zithromax 500mg Ivpb (Pre-Docked)) 500 mg in 250 mls @ 250 mls/ hr IVPB DAILY [facility] Last Admin: 09/20/19 10:46 Dose: 250 mls/hr Sodium Chloride (Normal Saline -) 1,000 mls @ 42 mls/hr IV ASDIR [facility] Last Admin: 09/20/19 09:17 Dose: 42 mls/hr Methylprednisolone Sodium Succinate (Solu-Medrol -) 40 mg IVPUSH BID [facility] Last Admin: 09/20/19 10:19 Dose: 40 mg Mupirocin (Bactroban Ointment (For Decolonization) -) 1 applic NS BID [facility] Stop: 09/24/19 09:59 Last Admin: 09/20/19 10:20 Dose: 1 applic Pantoprazole Sodium (Protonix Iv) 40 mg IVPUSH DAILY [facility] Last Admin: 09/20/19 10:21 Dose: 40 mg - Objective Vital Signs: Vital Signs Temperature 98.0 F 09/20/19 08:00 Pulse Rate 99 H 09/20/19 10:00 Respiratory Rate 18 09/20/19 10:00 Blood Pressure 135/91 09/20/19 10:00 O2 Sat by Pulse Oximetry (%) 99 09/19/19 20:22 Constitutional: Yes: No Distress Cardiovascular: Yes: Regular Rate and Rhythm, S1, S2 Respiratory: Yes: CTA Bilaterally Gastrointestinal: Yes: Normal Bowel Sounds, Soft Edema: No Labs: CBC, BMP 09/20/19 06:26 09/20/19 06:26 INR, PTT INR 1.21 (0.83-1.09) H 09/17/19 22:30 Assessment/Plan S/P RESP FAILURE PNEUMONIA CP/MR CONTINUE CEFTRIAXONE/ ZITHROMAX
--- NOTE | 2019-09-20 14:19 | PN ---
Progress Note (short form) - Note Progress Note: Hospitalist Medicine Extubated yesterday, tachypneic today. Overnight required haldol, ativan for agitation. Home meds restarted Vitals 09/20/19 12:00 Pulse Rate 86 Respiratory 16 Rate Blood Pressure 123/84 09/20/19 14:00 Temperature 97.8 F Pulse Rate 111 H Respiratory 15 Rate Blood Pressure 120 Mean GENERAL: resting in bed. awake, nonverbal. HEENT: NCAT, moist mucous membranes. NECK: supple. no JVD LUNGS: +scattered rhonchi. without accessory m usage HEART: S1, S2 RRR. no r/m/g ABDOMEN: Soft, nontender, nondistended. EXTREMITIES: 2+ pulses, no edema Laboratory Tests 09/20/19 09/20/19 06:26 06:26 WBC 12.5 H Hgb 12.5 Hct 36.0 Plt Count 207 Sodium 142 Potassium 3.7 Chloride 111 H Carbon Dioxide 25 BUN 12.6 Creatinine 0.6 Microbiology 09/18/19 00:30 Urine - Urine - Catheterized Urine Culture - Final NO GROWTH OBTAINED 09/17/19 23:03 Blood - Peripheral Venous Blood Culture - Preliminary NO GROWTH OBTAINED AFTER 24 HOURS, INCUBATION TO CONTINUE FOR 4 DAYS. 09/17/19 23:03 Blood - Peripheral Venous Blood Culture - Preliminary NO GROWTH OBTAINED AFTER 24 HOURS, INCUBATION TO CONTINUE FOR 4 DAYS. EKG: sinus tach rate 121bpm, 462msqtc Imaging 09/17 CXR: slight increase in lung markings at left base - early infiltrate or atelectasis. angles are sharp. compared to prior study of 08/25/19 Most recent CXR: 09/18: +ETT, NGT in place, R infiltrate has diminished. L infiltrate has become more pronounced in the L infrahilar area and has become a bit rounded. mediastinum is not widened. angles are sharp. soft tissues intact. 09/20 CXR: interval better evaluation of the left lower lobe with residual atelectatic changes and infiltrates. no gross pneumothorax, or pleural effusion are identified. Assessment/plan 34 y/o M with hx of cerebral palsy, intellectual disability, and blindness BIBEMS from facility because of lethargy and cough with increasing sputum production found to be septic, hypothermic, with presumed aspiration pneumonia source. Patient with acute hypoxic hypercapnic respiratory failure - intubated, sedated, peripheral warming provided in the ED along with vanc, zosyn, IVF. #sepsis 2/2 likely aspiration PNA #acute hypoxic RF -given pt change in status, lethargy, hx CP -received vanc zosyn in ER. c/w ceftriaxone, zithromax (Day2) -c/t monitor qtc ; repeat EKG today -f/u ucx, blood cx. u legionella, sputum cx ordered. lactic, UA WNL -c/w duonebs RQID, nebs PRN -medrol 40mg IVP BID, tapering -f/u RSV panel. flu (-) -ID on board: Dr. Roque #cerebral palsy intellectual disability -c/w benztropine, klonopin, haldol #F/E/N IV NS 42 cc/hr continue to follow lytes NPO except PO meds #PPX DVT: hep 5k sq tid GI: protonix #Dispo cont'd ICU management <Julissa Smiley - Last Filed: 09/20/19 15:35> - Note Progress Note: Seen and examined; agree with above aside from as supplemented below by myself. Personally verified all historical information and alex PE findings. Independently reviewed all labs and diagnostics. I discussed the case at length with the resident and consulting services. All questions answered. Seen in ICU Remains extubated, controlling secretions, no new issues overngiht. Couldn't obtain ROS due to underlying clinical status of being intubated NAD, intubated on vent, moves all 4 etremity and responds to tactile stimuli CN2-12 wnl, no fnd and no obvious neuro deficits Vent associated breath sounds with some rales and scattered ronchi, w/ sym exp NT ND +BS HR wnl, +s1/2 Skin without new rashes or breakdown Trachea midline with no LN Microbiology pending A/P: Patient presents with acute respiratory failure requiring mechanical intubation ; continue abx and O2 and wean as tolerated. Pre and post tomorrow to assess DC readiness for /tuesday Problems include: -Acute respiratory failure secondary to L-sided CAP (negative flu, cultures with NGTD, negative UAg's, CXR results appreciated, viral PCR pending. Extubate and monitor secretions. Likely aspiration component. 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 Added seizure precautions.) Full Code <Isiah Johnson - Last Filed: 09/21/19 07:38>
[2019-09-20] MEDS ORDERED: PT OWN MED DRAWER 7, Y5N ONE (20:08)
[2019-09-20] MEDS: HALOPERIDOL 5 MG TABLET (FP) PO SCH (21:41)
[2019-09-20] MEDS: CHLORHEXIDINE GLUCONATE 4% CLEANSER FOR DECOLONIZATION TP SCH (21:43)
[2019-09-20] MEDS ORDERED: HALOPERIDOL 5 MG TABLET (FP) PO SCH (22:00)
[2019-09-21] MEDS: HEPARIN NA (PORCINE) 5,000 UNITS/ML 1ML VIAL SQ SCH ×3 (06:10→21:16)
[2019-09-21] MEDS ORDERED: DEXTROSE 5%-WATER 100 ML IVPB ONE (07:51)
[2019-09-21] MEDS: ALBUTEROL SO4 2.5/IPRATROPIUM 0.5 INH SOL 3 ML VIAL.NEB. NEB SCH ×4 (08:50→21:48)
[2019-09-21] MEDS: CEFTRIAXONE 2 GM in DEXTROSE 5%-WATER 100 ML IVPB SCH (09:20)
--- NOTE | 2019-09-21 10:07 | PN ---
Progress Note (short form) - Note Progress Note: Pulm/CCM SUBJECTIVE: Pt seen and examined in the ICU. 24HR: no events overnight respiratory status stable OBJECTIVE: Vital Signs Temp 98.2 F 09/21/19 02:00 Pulse 105 H 09/21/19 08:00 Resp 20 09/21/19 08:00 BP 137/87 09/21/19 08:00 Pulse Ox 98 09/21/19 01:30 Intake & Output 09/20/19 09/20/19 09/21/19 11:59 23:59 11:59 Intake Total 830 500 Output Total 1500 1200 800 Balance -670 -700 -800 Weight 65.317 kg Intake: IV 830 500 Normal Saline - 1,000 ml 500 @ 42 mls/hr IV ASDIR [facility] Rx#:[id number] Normal Saline - 1,000 ml 830 @ 83 mls/hr IV ASDIR [facility] Rx#:[id number] Output: Urine 1500 1200 800 Spence 1500 1200 800 Other: Voiding Method Indwelling Catheter Indwelling Catheter Height 5 ft 8 in Body Mass Index (BMI) 21.9 Gen: awake, mildly agitated Heart: RRR Lung: clear Abd: soft, nontender Ext: no edema CBC, BMP 09/20/19 06:26 09/20/19 06:26 Active Medications Acetaminophen (Ofirmev Injection -) 1,000 mg IVPB Q6H PRN PRN Reason: FEVER Albuterol Sulfate (Ventolin 0.083% Nebulizer Soln -) 1 amp NEB Q4H PRN PRN Reason: SHORT OF BREATH/WHEEZING Albuterol/Ipratropium (Duoneb -) 1 amp NEB RQID [facility] Last Admin: 09/21/19 08:50 Dose: 1 amp Benztropine Mesylate (Cogentin -) 0.5 mg PO BID [facility] Last Admin: 09/20/19 22:00 Dose: 0.5 mg Chlorhexidine Gluconate (Hibiclens For Decolonization -) 1 applic TP HS [facility] Last Admin: 09/20/19 21:43 Dose: 1 applic Clonazepam (Klonopin -) 1 mg PO BID [facility] Last Admin: 09/20/19 21:41 Dose: 1 mg Haloperidol (Haldol -) 5 mg PO BID [facility] Last Admin: 09/20/19 21:41 Dose: 5 mg Heparin Sodium (Porcine) (Heparin -) 5,000 unit SQ TID [facility] Last Admin: 09/21/19 06:10 Dose: 5,000 unit Ceftriaxone Sodium 2 gm/ (Dextrose) 100 mls @ 200 mls/hr IVPB DAILY [facility]; Protocol Last Admin: 09/20/19 10:19 Dose: 200 mls/hr Azithromycin (Zithromax 500mg Ivpb (Pre-Docked)) 500 mg in 250 mls @ 250 mls/ hr IVPB DAILY [facility] Last Admin: 09/20/19 10:46 Dose: 250 mls/hr Sodium Chloride (Normal Saline -) 1,000 mls @ 42 mls/hr IV ASDIR [facility] Last Admin: 09/20/19 09:17 Dose: 42 mls/hr Methylprednisolone Sodium Succinate (Solu-Medrol -) 40 mg IVPUSH BID [facility] Last Admin: 09/20/19 21:41 Dose: 40 mg Mupirocin (Bactroban Ointment (For Decolonization) -) 1 applic NS BID [facility] Stop: 09/24/19 09:59 Last Admin: 09/20/19 21:44 Dose: 1 applic Pantoprazole Sodium (Protonix Iv) 40 mg IVPUSH DAILY [facility] Last Admin: 09/20/19 10:21 Dose: 40 mg ASSESSMENT AND PLAN: Acute Hypoxic and Hypercapneic Respiratory Failure improving Pneumonia likely Aspiration Sepsis Cerebral Palsy Mental Retardation - antibiotics to cover aspiration - f/u cultures - speech and swallow__>start diet - IVF - taper steroids - inhaled bronchodilators - taper Fio2 to keep SpO2 >90% - aspiration precautions - DVT/GI prophylaxis - can monitor on floor [facility] [id number]
[2019-09-21] MEDS ORDERED: PT OWN MED DRAWER 7, Y5N ONE ×2 (10:45→20:57)
--- NOTE | 2019-09-21 11:16 | PN ---
Progress Note (short form) - Note Progress Note: Hospitalist Medicine Mildly agitated during my rounds, screaming intermittently. However, appears cheerful and at baseline mentation. For transfer to floor out of ICU Vitals 09/21/19 08:00 Pulse Rate 105 H Respiratory 20 Rate Blood Pressure 137/87 Last labs (AM labs pending) 09/20/19 09/20/19 06:26 06:26 WBC 12.5 H Hgb 12.5 Hct 36.0 Plt Count 207 Sodium 142 Potassium 3.7 Chloride 111 H Anion Gap 6 L BUN 12.6 Creatinine 0.6 GENERAL: resting in bed. awake, nonverbal. HEENT: NCAT, moist mucous membranes. NECK: supple. no JVD LUNGS: CTA b/l. no accessory m usage HEART: S1, S2 RRR. no r/m/g ABDOMEN: Soft, nontender, nondistended. EXTREMITIES: 2+ pulses, no edema psych: cheerful, active Laboratory Tests 09/21/19 09/21/19 10:50 10:50 WBC 11.1 H Hgb 13.4 Hct 39.8 Plt Count 206 Sodium 145 Potassium 3.8 Chloride 112 H Carbon Dioxide 26 Anion Gap 8 BUN 20.0 H Creatinine 0.7 Random Glucose 109 H AST 46 H Microbiology 09/19/19 03:45 Urine For Antigen Detection Legionella Antigen - Final 09/19/19 03:45 Urine For Antigen Detection Streptococcus pneumoniae Antigen (M - Final 09/18/19 00:30 Urine - Urine - Catheterized Urine Culture - Final NO GROWTH OBTAINED 09/17/19 23:03 Blood - Peripheral Venous Blood Culture - Preliminary NO GROWTH OBTAINED AFTER 72 HOURS, INCUBATION TO CONTINUE FOR 2 DAYS. 09/17/19 23:03 Blood - Peripheral Venous Blood Culture - Preliminary NO GROWTH OBTAINED AFTER 72 HOURS, INCUBATION TO CONTINUE FOR 2 DAYS. EKG: sinus tach rate 121bpm, 462msqtc Imaging 09/17 CXR: slight increase in lung markings at left base - early infiltrate or atelectasis. angles are sharp. compared to prior study of 08/25/19 Most recent CXR: 09/18: +ETT, NGT in place, R infiltrate has diminished. L infiltrate has become more pronounced in the L infrahilar area and has become a bit rounded. mediastinum is not widened. angles are sharp. soft tissues intact. 09/20 CXR: interval better evaluation of the left lower lobe with residual atelectatic changes and infiltrates. no gross pneumothorax, or pleural effusion are identified. 09/21 CXR: L base changes have diminished, no sign of acute process. Assessment/plan 34 y/o M with hx of cerebral palsy, intellectual disability, and blindness BIBEMS from facility because of lethargy and cough with increasing sputum production found to be septic, hypothermic, with presumed aspiration pneumonia source. Patient with acute hypoxic hypercapnic respiratory failure - intubated, sedated, peripheral warming provided in the ED along with vanc, zosyn, IVF. #sepsis 2/2 likely aspiration PNA #acute hypoxic RF -improved status, for transfer to floor -received vanc zosyn in ER. c/w ceftriaxone, zithromax (09/18) -f/u ucx, blood cx. u legionella, sputum cx ordered. lactic, UA WNL -c/w duonebs RQID, nebs PRN -medrol 40mg IVP -f/u RSV panel. flu (-) -ID on board: Dr. Roque #cerebral palsy intellectual disability -c/w benztropine, klonopin, haldol #F/E/N IV NS 42 cc/hr continue to follow lytes puree diet #PPX DVT: hep 5k sq tid GI: protonix #Dispo improved resp status for transfer to floor from ICU <Julissa Smiley - Last Filed: 09/21/19 12:41> - Note Progress Note: Seen and examined; agree with above aside from as supplemented below by myself. Personally verified all historical information and alex PE findings. Independently reviewed all labs and diagnostics. I discussed the case at length with the resident and consulting services. All questions answered. Seen in ICU Remains extubated, controlling secretions, no new issues overngiht. Couldn't obtain ROS due to underlying clinical status of being intubated NAD, intubated on vent, moves all 4 etremity and responds to tactile stimuli CN2-12 wnl, no fnd and no obvious neuro deficits Vent associated breath sounds with some rales and scattered ronchi, w/ sym exp NT ND +BS HR wnl, +s1/2 Skin without new rashes or breakdown Trachea midline with no LN Microbiology pending A/P: Patient presents with acute respiratory failure requiring mechanical intubation ; continue abx and O2 and wean as tolerated. Pre and post tomorrow to assess DC readiness for /tuesday Problems include: -Acute respiratory failure secondary to L-sided CAP (negative flu, cultures with NGTD, negative UAg's, CXR results appreciated, viral PCR pending. Extubate and monitor secretions. Likely aspiration component. 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 Added seizure precautions.) Full Code <Isiah Johnson - Last Filed: 09/23/19 09:00>
[2019-09-21] MEDS: clonazePAM 0.5 MG TABLET PO SCH ×2 (11:19→21:15)
[2019-09-21] MEDS: MUPIROCIN 2% TOPICAL OINTMENT FOR DECOLONIZATION NS SCH ×2 (11:19→22:00)
[2019-09-21] MEDS: PANTOPRAZOLE SODIUM 40 MG VIAL IVPUSH SCH (11:19)
[2019-09-21] MEDS: BENZTROPINE MESYLATE 0.5 MG TABLET (FP) PO SCH ×2 (11:19→21:15)
[2019-09-21] MEDS: SODIUM CHLORIDE 1,000 ML IV SCH (11:19)
[2019-09-21] MEDS: HALOPERIDOL 5 MG TABLET (FP) PO SCH ×2 (11:19→21:17)
[2019-09-21] MEDS: AZITHROMYCIN IVPB 500 MG/250 ML BAG IVPB SCH (11:20)
[2019-09-21] MEDS: methylPREDNISolone NA SUCC 40 MG/1 ML VIAL IVPUSH SCH (11:21)
[2019-09-21 11:42] LABS: BASO % 1.1 % (0-2.0); EOS % 0.1 % (0-4.5); HEMATOCRIT 39.8 % (35.4-49); HEMOGLOBIN 13.4 GM/dL (11.7-16.9); LYMPH % 9.9 % (8-40); MCH 28.7 pg (25.7-33.7); MCHC 33.8 g/dl (32.0-35.9); MEAN CELL VOLUME 84.9 fl (80-96); MEAN PLT VOLUME 9.2 fl (7.5-11.1); MONO % 6.1 % (3.8-10.2); NEUT % 82.8 % (42.8-82.8); PLATELET COUNT 206 K/MM3 (134-434); RBC 4.69 M/mm3 (4.00-5.60); RDW 13.6 % (11.9-15.9); WHITE BLOOD COUNT 11.1 K/mm3 (4.0-10.0)
[2019-09-21 11:51] LABS: ALBUMIN 3.1 g/dl (3.4-5.0); BILIRUBIN,TOTAL 0.4 mg/dL (0.2-1); CALCIUM 8.7 mg/dL (8.5-10.1); CREATININE 0.7 mg/dL (0.55-1.3); MAGNESIUM 1.9 mg/dL (1.8-2.4); PHOSPHOROUS 3.1 mg/dL (2.5-4.9); POTASSIUM 3.8 mmol/L (3.5-5.1); TOT PROT 6.8 g/dl (6.4-8.2)
--- NOTE | 2019-09-21 13:59 | CONSULT ---
Admitting History and Physical - Admission History of Present Illness: Per EMR- 34 y/o male PMH cerebral palsy, intellectual disability, and BL blindness brought in from [place] home after change in behavior. The pt was to receive his bath and responded with grunts; aid mentions he was breathing heavily. On duty nurse was called to assess and pt was found to be hypoxic in the 80s%, tachypnic, and tachycardic 120s, and hypothermic at 95o. He was brought to the ED where ABG demonstrated pH of 7.22 and Pco2 72. Pt was intubated and placed on mechanical ventilation. ED: (1) B/L infiltrates on CXR. (2) 1x Vanc/Zosyn given. (3) Vent settings in ED: Elsa 14, 450TV, 100%Fio2, PEEP 5 Extubated on 09/19. On puree/thin liquids Pt was on finely minced, moistened with liquid at facility. CXR (-) NAD Selected Entries 09/19/19 09/20/19 09/21/19 11:00 08:45 02:00 Breakfast NPO NPO Lunch NPO Temperature 98.2 F 09/21/19 09/21/19 08:45 10:00 Breakfast NPO NPO Lunch NPO NPO Temperature Laboratory Tests 09/18/19 09/19/19 09/20/19 05:35 05:55 06:26 WBC 4.5 10.1 H 12.5 H 09/21/19 10:50 WBC 11.1 H History Source: Medical Record Limitations to Obtaining History: Clinical Condition - Smoking History Smoking history: Unknown if ever smoked Have you smoked in the past 12 months: No - Alcohol/Substance Use Hx Alcohol Use: No History - Admission Reason For Visit: RESPIRATORY DISTRESS, PNEUMONIA - Diagnostics X-ray: Report Reviewed - General Mental Status: Able to Follow Commands Ability to Follow Directions: Fair - Hearing Hearing: Functional Speech Evaluation - Language/Auditory Comprehension Follows: Yes: 1 Stage Simple Commands - Swallow Evaluation/Bedside Assessment Current Nutritional Intake: NPO Oral Secretions: Yes: WFL Dentition: Yes: Missing Teeth Facial Symmetry at Rest: Symmetrical Jaw Position: Open at Rest Smile: Normal Laryngeal Movement: Labored,delay initiation Oral Prep Time: WFL A-P Transit: WFL Timing of Swallow: Delayed Coughing/Throat Clear: Yes (on saliva, not on po trials but risk) Recommendations - Speech Evaluation, Impression/Plan Impression: Euphoric, laughing, cough on saliva/secretions. Swallow delayed but fairly brisk. Aspiration risk, especially on thin liquids. Cough. Possible upper airway congestion? CXR (-) - Disposition Discharge to: Adult Residence - Dysphagia Impressions/Plan Swallowing Skills: Impaired Dysphagia Impressions: Mild Impairment, Suspect Aspiration (on thin possibly and intermittently on PO when laughs with food/liquid in his throat.) *Silent aspiration: cannot be R/O at bedside Dysphagia Treatment Plan: Small Bites, Chin Tuck/Down, Clear Pocket Food, Facilitative Feeding, Safe Rate, 1/2 tsp. at a time, Elevate HOB during feed, Other (tell pt to swallow quickly, not laugh while eating) Recommendations: Modified Barium Swallow (if cough,congestion, fever or as out pt to r/o aspiration) - Recommendations Diet Consistency: Dysphagia Pureed Medication Administration: Crushed with applesauce Liquids: [place] Thick Supplement: Magic Cup, Ensure Pudding
--- NOTE | 2019-09-21 14:23 | EKG ---
Test Reason : Blood Pressure : / mmHG Vent. Rate : 096 BPM Atrial Rate : 096 BPM P-R Int : 150 ms QRS Dur : 082 ms QT Int : 330 ms P-R-T Axes : 081 091 091 degrees QTc Int : 416 ms POOR DATA QUALITY, INTERPRETATION MAY BE ADVERSELY AFFECTED NORMAL SINUS RHYTHM RIGHTWARD AXIS WHEN COMPARED WITH ECG OF 18-SEP-2019 00:20, NO SIGNIFICANT CHANGE WAS FOUND Confirmed by JONNY FERNÁNDEZ, JEFFREY ([id number]) on 09/21/2019 2:23:24 PM Referred By: Sj BOGGS Confirmed By:JEFFREY FULLER MD
--- NOTE | 2019-09-21 17:57 | PN ---
Progress Note, Physician History of Present Illness: AWAKE, NON VERBAL REMAINS EXTUBATED BREATHING NON LABORED AFEBRILE - Current Medication List Current Medications: Active Medications Acetaminophen (Ofirmev Injection -) 1,000 mg IVPB Q6H PRN PRN Reason: FEVER Albuterol Sulfate (Ventolin 0.083% Nebulizer Soln -) 1 amp NEB Q4H PRN PRN Reason: SHORT OF BREATH/WHEEZING Albuterol/Ipratropium (Duoneb -) 1 amp NEB RQID [facility] Last Admin: 09/21/19 16:47 Dose: 1 amp Benztropine Mesylate (Cogentin -) 0.5 mg PO BID [facility] Last Admin: 09/21/19 11:19 Dose: 0.5 mg Chlorhexidine Gluconate (Hibiclens For Decolonization -) 1 applic TP HS [facility] Last Admin: 09/20/19 21:43 Dose: 1 applic Clonazepam (Klonopin -) 1 mg PO BID [facility] Last Admin: 09/21/19 11:19 Dose: 1 mg Haloperidol (Haldol -) 5 mg PO BID [facility] Last Admin: 09/21/19 11:19 Dose: 5 mg Heparin Sodium (Porcine) (Heparin -) 5,000 unit SQ TID [facility] Last Admin: 09/21/19 14:36 Dose: 5,000 unit Ceftriaxone Sodium 2 gm/ (Dextrose) 100 mls @ 200 mls/hr IVPB DAILY [facility]; Protocol Last Admin: 09/21/19 09:20 Dose: 200 mls/hr Azithromycin (Zithromax 500mg Ivpb (Pre-Docked)) 500 mg in 250 mls @ 250 mls/ hr IVPB DAILY [facility] Last Admin: 09/21/19 11:20 Dose: 250 mls/hr Sodium Chloride (Normal Saline -) 1,000 mls @ 42 mls/hr IV ASDIR [facility] Last Admin: 09/21/19 11:19 Dose: 42 mls/hr Methylprednisolone Sodium Succinate (Solu-Medrol -) 40 mg IVPUSH DAILY [facility] Mupirocin (Bactroban Ointment (For Decolonization) -) 1 applic NS BID [facility] Stop: 09/24/19 09:59 Last Admin: 09/21/19 11:19 Dose: 1 applic Pantoprazole Sodium (Protonix Iv) 40 mg IVPUSH DAILY [facility] Last Admin: 09/21/19 11:19 Dose: 40 mg - Objective Vital Signs: Vital Signs Temperature 98.2 F 09/21/19 02:00 Pulse Rate 65 09/21/19 17:33 Respiratory Rate 20 09/21/19 17:33 Blood Pressure 131/96 09/21/19 17:33 O2 Sat by Pulse Oximetry (%) 98 09/21/19 01:30 Constitutional: Yes: No Distress Eyes: Yes: Conjunctiva Clear Cardiovascular: Yes: Regular Rate and Rhythm, S1, S2 Respiratory: Yes: Diminished Gastrointestinal: Yes: Normal Bowel Sounds, Soft. No: Tenderness Labs: CBC, BMP 09/21/19 10:50 09/21/19 10:50 INR, PTT INR 1.21 (0.83-1.09) H 09/17/19 22:30 Assessment/Plan S/P RESP FAILURE PNEUMONIA CP/MR CONTINUE CEFTRIAXONE/ ZITHROMAX
[2019-09-21] MEDS: CHLORHEXIDINE GLUCONATE 4% CLEANSER FOR DECOLONIZATION TP SCH (21:16)
[2019-09-22] MEDS ORDERED: LORazepam 2 MG/ML SDV VIAL IM ONE (05:29)
[2019-09-22] MEDS: HEPARIN NA (PORCINE) 5,000 UNITS/ML 1ML VIAL SQ SCH ×3 (05:54→21:57)
[2019-09-22 07:35] LABS: BASO % 0.7 % (0-2.0); EOS % 1.4 % (0-4.5); HEMATOCRIT 41.7 % (35.4-49); HEMOGLOBIN 14.3 GM/dL (11.7-16.9); LYMPH % 22.3 % (8-40); MCHC 34.3 g/dl (32.0-35.9); MEAN CELL VOLUME 84.6 fl (80-96); MEAN PLT VOLUME 8.3 fl (7.5-11.1); MONO % 9.4 % (3.8-10.2); NEUT % 66.2 % (42.8-82.8); PLATELET COUNT 242 K/MM3 (134-434); RBC 4.93 M/mm3 (4.00-5.60); RDW 13.7 % (11.9-15.9); WHITE BLOOD COUNT 9.5 K/mm3 (4.0-10.0)
[2019-09-22] MEDS: ALBUTEROL SO4 2.5/IPRATROPIUM 0.5 INH SOL 3 ML VIAL.NEB. NEB SCH ×4 (07:40→20:04)
[2019-09-22 07:44] LABS: BLOOD UREA NITROGEN 25.9 mg/dL (7-18); CALCIUM 8.8 mg/dL (8.5-10.1); CREATININE 0.7 mg/dL (0.55-1.3); MAGNESIUM 1.9 mg/dL (1.8-2.4); PHOSPHOROUS 3.1 mg/dL (2.5-4.9); POTASSIUM 3.9 mmol/L (3.5-5.1)
[2019-09-22] MEDS ORDERED: DEXTROSE 5%-WATER 100 ML IVPB ONE (09:01)
[2019-09-22] MEDS: clonazePAM 0.5 MG TABLET PO SCH ×2 (09:11→21:57)
[2019-09-22] MEDS: methylPREDNISolone NA SUCC 40 MG/1 ML VIAL IVPUSH SCH (09:11)
[2019-09-22] MEDS: BENZTROPINE MESYLATE 0.5 MG TABLET (FP) PO SCH ×2 (09:11→21:57)
[2019-09-22] MEDS: PANTOPRAZOLE SODIUM 40 MG VIAL IVPUSH SCH (09:12)
[2019-09-22] MEDS: CEFTRIAXONE 2 GM in DEXTROSE 5%-WATER 100 ML IVPB SCH (09:12)
[2019-09-22] MEDS: AZITHROMYCIN IVPB 500 MG/250 ML BAG IVPB SCH (09:12)
[2019-09-22 09:22] LABS: PLATELET ESTIMATE NORMAL
--- NOTE | 2019-09-22 10:13 | PN ---
Physical Exam: SUBJECTIVE: Patient seen and examined OBJECTIVE: Vital Signs Period Temp Pulse Resp BP Sys/Horne Pulse Ox Last 24 Hr 98.2 F 65-120 20-24 111-145/70-106 98 GENERAL: The patient is awake, alert, and fully oriented, in no acute distress. HEAD: Normal with no signs of trauma. EYES: PERRL, extraocular movements intact, sclera anicteric, conjunctiva clear. No ptosis. ENT: Ears normal, nares patent, oropharynx clear without exudates, moist mucous membranes. NECK: Trachea midline, full range of motion, supple. LUNGS: Breath sounds equal, clear to auscultation bilaterally, no wheezes, no crackles, no accessory muscle use. HEART: Regular rate and rhythm, S1, S2 without murmur, rub or gallop. ABDOMEN: Soft, nontender, nondistended, normoactive bowel sounds, no guarding, no rebound, no hepatosplenomegaly, no masses. EXTREMITIES: 2+ pulses, warm, well-perfused, no edema. NEUROLOGICAL: Cranial nerves II through XII grossly intact. Normal speech, gait not observed. PSYCH: Normal mood, normal affect. SKIN: Warm, dry, normal turgor, no rashes or lesions noted Laboratory Results - last 24 hr 09/21/19 09/21/19 09/22/19 10:50 10:50 06:50 WBC 11.1 H 9.5 RBC 4.69 4.93 Hgb 13.4 14.3 Hct 39.8 41.7 MCV 84.9 84.6 MCH 28.7 29.0 MCHC 33.8 34.3 RDW 13.6 13.7 Plt Count 206 242 MPV 9.2 8.3 Absolute Neuts (auto) 9.2 H 6.3 Neutrophils % 82.8 66.2 D Neutrophils % (Manual) 74.4 Band Neutrophils % 2.3 Lymphocytes % 9.9 D 22.3 D Lymphocytes % (Manual) 14.0 Monocytes % 6.1 9.4 Monocytes % (Manual) 5 Eosinophils % 0.1 D 1.4 D Eosinophils % (Manual) 2.3 Basophils % 1.1 D 0.7 Basophils % (Manual) 2.3 H Myelocytes % (Man) 0 Promyelocytes % (Man) 0 Blast Cells % (Manual) 0 Nucleated RBC % 0 0 Metamyelocytes 0 Platelet Estimate Normal Polychromasia 1+ Sodium 145 Potassium 3.8 Chloride 112 H Carbon Dioxide 26 Anion Gap 8 BUN 20.0 H Creatinine 0.7 Est GFR (CKD-EPI)AfAm 143.71 Est GFR (CKD-EPI)NonAf 123.99 Random Glucose 109 H Calcium 8.7 Phosphorus 3.1 Magnesium 1.9 Total Bilirubin 0.4 AST 46 H ALT 47 Alkaline Phosphatase 80 Total Protein 6.8 Albumin 3.1 L 09/22/19 06:50 WBC RBC Hgb Hct MCV MCH MCHC RDW Plt Count MPV Absolute Neuts (auto) Neutrophils % Neutrophils % (Manual) Band Neutrophils % Lymphocytes % Lymphocytes % (Manual) Monocytes % Monocytes % (Manual) Eosinophils % Eosinophils % (Manual) Basophils % Basophils % (Manual) Myelocytes % (Man) Promyelocytes % (Man) Blast Cells % (Manual) Nucleated RBC % Metamyelocytes Platelet Estimate Polychromasia Sodium 146 H Potassium 3.9 Chloride 113 H Carbon Dioxide 22 Anion Gap 10 BUN 25.9 H Creatinine 0.7 Est GFR (CKD-EPI)AfAm 143.71 Est GFR (CKD-EPI)NonAf 123.99 Random Glucose 90 Calcium 8.8 Phosphorus 3.1 Magnesium 1.9 Total Bilirubin AST ALT Alkaline Phosphatase Total Protein Albumin Active Medications Generic Name Dose Route Start Last Admin Trade Name Freq PRN Reason Stop Dose Admin Acetaminophen 1,000 mg 09/18/19 07:49 Ofirmev Injection - IVPB Q6H PRN FEVER Albuterol Sulfate 1 amp 09/18/19 19:17 Ventolin 0.083% Nebulizer Soln - NEB Q4H PRN SHORT OF BREATH/WHEEZING Albuterol/Ipratropium 1 amp 09/18/19 20:00 09/22/19 07:40 Duoneb - NEB 1 amp RQID ASHA Administration Benztropine Mesylate 0.5 mg 09/20/19 10:00 09/22/19 09:11 Cogentin - PO 0.5 mg BID ASHA Administration Chlorhexidine Gluconate 1 applic 09/19/19 22:00 09/21/19 21:16 Hibiclens For Decolonization - TP 1 applic HS ASHA Administration Clonazepam 1 mg 09/20/19 10:00 09/22/19 09:11 Klonopin - PO 1 mg BID ASHA Administration Haloperidol 5 mg 09/20/19 22:00 09/21/19 21:17 Haldol - PO 5 mg BID ASHA Administration Heparin Sodium (Porcine) 5,000 unit 09/18/19 06:00 09/22/19 05:54 Heparin - SQ 5,000 unit TID ASHA Administration Ceftriaxone Sodium 2 gm/ 100 mls @ 200 mls/hr 09/18/19 15:30 09/22/19 09:12 Dextrose IVPB 200 mls/hr DAILY [facility] Administration Protocol Azithromycin 500 mg in 250 mls @ 250 mls/hr 09/18/19 16:37 09/22/19 09:12 Zithromax 500mg Ivpb (Pre-Docked) IVPB 250 mls/hr DAILY [facility] Administration Sodium Chloride 1,000 mls @ 42 mls/hr 09/20/19 09:14 09/21/19 11:19 Normal Saline - IV 42 mls/hr ASDIR ASHA Administration Methylprednisolone Sodium Succinate 40 mg 09/22/19 10:00 09/22/19 09:11 Solu-Medrol - IVPUSH 40 mg DAILY [facility] Administration Mupirocin 1 applic 09/19/19 10:00 09/21/19 22:00 Bactroban Ointment (For Decolonization) - NS 09/24/19 09:59 1 applic BID ASHA Administration Pantoprazole Sodium 40 mg 09/18/19 19:30 09/22/19 09:12 Protonix Iv IVPUSH 40 mg DAILY [facility] Administration ASSESSMENT/PLAN: Patient presents with acute respiratory failure requiring mechanical intubation ; continue abx and O2 and wean as tolerated. If remains improved DC early in weak. Continue to cover for aspiration. Problems include: -Acute respiratory failure secondary to L-sided CAP (negative flu, cultures with NGTD, negative UAg's, CXR results appreciated. 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 Added seizure precautions.) Full Code Visit type - Emergency Visit Emergency Visit: Yes ED Registration Date: 09/18/19 Care time: The patient presented to the Emergency Department on the above date and was hospitalized for further evaluation of their emergent condition. - New Patient This patient is new to me today: No - Critical Care Critical Care patient: No
--- NOTE | 2019-09-22 10:17 | PN ---
Progress Note (short form) - Note Progress Note: Pulm/CCM SUBJECTIVE: Pt seen and examined in the ICU. 24HR: -no events, awaiting beds OBJECTIVE: Vital Signs Temp 98.2 F 09/22/19 05:00 Pulse 72 09/22/19 08:00 Resp 20 09/22/19 08:00 BP 111/70 09/22/19 08:00 Pulse Ox 98 09/21/19 21:00 Intake & Output 09/21/19 09/21/19 09/22/19 11:59 23:59 11:59 Intake Total 240 Output Total 800 1600 300 Balance -800 -1360 -300 Intake: Oral 240 Output: Urine 800 1600 300 Spence 800 1600 300 Other: Voiding Method Indwelling Catheter Indwelling Catheter Bowel Movement Yes: exlarge Gen: awake, mildly agitated Heart: RRR Lung: clear Abd: soft, nontender Ext: no edema Neuro: at baseline CBC, BMP 09/22/19 06:50 09/22/19 06:50 Active Medications Acetaminophen (Ofirmev Injection -) 1,000 mg IVPB Q6H PRN PRN Reason: FEVER Albuterol Sulfate (Ventolin 0.083% Nebulizer Soln -) 1 amp NEB Q4H PRN PRN Reason: SHORT OF BREATH/WHEEZING Albuterol/Ipratropium (Duoneb -) 1 amp NEB RQID [facility] Last Admin: 09/22/19 07:40 Dose: 1 amp Benztropine Mesylate (Cogentin -) 0.5 mg PO BID [facility] Last Admin: 09/22/19 09:11 Dose: 0.5 mg Chlorhexidine Gluconate (Hibiclens For Decolonization -) 1 applic TP HS [facility] Last Admin: 09/21/19 21:16 Dose: 1 applic Clonazepam (Klonopin -) 1 mg PO BID [facility] Last Admin: 09/22/19 09:11 Dose: 1 mg Haloperidol (Haldol -) 5 mg PO BID [facility] Last Admin: 09/21/19 21:17 Dose: 5 mg Heparin Sodium (Porcine) (Heparin -) 5,000 unit SQ TID [facility] Last Admin: 09/22/19 05:54 Dose: 5,000 unit Ceftriaxone Sodium 2 gm/ (Dextrose) 100 mls @ 200 mls/hr IVPB DAILY [facility]; Protocol Last Admin: 09/22/19 09:12 Dose: 200 mls/hr Azithromycin (Zithromax 500mg Ivpb (Pre-Docked)) 500 mg in 250 mls @ 250 mls/ hr IVPB DAILY [facility] Last Admin: 09/22/19 09:12 Dose: 250 mls/hr Sodium Chloride (Normal Saline -) 1,000 mls @ 42 mls/hr IV ASDIR [facility] Last Admin: 09/21/19 11:19 Dose: 42 mls/hr Methylprednisolone Sodium Succinate (Solu-Medrol -) 40 mg IVPUSH DAILY [facility] Last Admin: 09/22/19 09:11 Dose: 40 mg Mupirocin (Bactroban Ointment (For Decolonization) -) 1 applic NS BID [facility] Stop: 09/24/19 09:59 Last Admin: 09/21/19 22:00 Dose: 1 applic Pantoprazole Sodium (Protonix Iv) 40 mg IVPUSH DAILY [facility] Last Admin: 09/22/19 09:12 Dose: 40 mg ASSESSMENT AND PLAN: Acute Hypoxic and Hypercapneic Respiratory Failure improving Pneumonia likely Aspiration Sepsis Cerebral Palsy Mental Retardation - antibiotics to cover aspiration - f/u cultures - speech and swallow__>start diet - IVF - cont taper steroids - inhaled bronchodilators - taper Fio2 to keep SpO2 >90% - aspiration precautions - DVT/GI prophylaxis - can monitor on floor [facility] [id number]
[2019-09-22] MEDS ORDERED: PT OWN MED DRAWER 7, Y5N ONE (10:24)
[2019-09-22] MEDS: MUPIROCIN 2% TOPICAL OINTMENT FOR DECOLONIZATION NS SCH ×2 (10:26→21:58)
[2019-09-22] MEDS: HALOPERIDOL 5 MG TABLET (FP) PO SCH ×2 (10:26→21:57)
[2019-09-22] MEDS: CHLORHEXIDINE GLUCONATE 4% CLEANSER FOR DECOLONIZATION TP SCH (21:58)
[2019-09-23] MEDS: HEPARIN NA (PORCINE) 5,000 UNITS/ML 1ML VIAL SQ SCH ×4 (05:27→22:04)
[2019-09-23] MEDS: ALBUTEROL SO4 2.5/IPRATROPIUM 0.5 INH SOL 3 ML VIAL.NEB. NEB SCH ×3 (07:20→15:42)
[2019-09-23] MEDS ORDERED: DEXTROSE 5%-WATER 100 ML IVPB ONE (08:03)
--- NOTE | 2019-09-23 09:02 | PN ---
Physical Exam: SUBJECTIVE: Patient seen and examined; no issues noted overnight. Can XF to floor. Stable respiratory status. 10 sys ROS cant be reliably completed due to underlying clinical condition OBJECTIVE: Vital Signs Period Temp Pulse Resp BP Sys/Horne Pulse Ox Last 24 Hr 98.0 F-98.4 F 59-117 21-27 102-132/75-108 94-98 GENERAL: The patient is awake, alert, and responds to verbal and tactile stimuli , and is in no acute distress. HEENT: PERRLA EOMI AT NECK: Trachea midline, full range of motion, supple. LUNGS: Breath sounds equal, poor effort with improved scattered rales no accessory muscle use; w/ sym exp HEART: Regular rate and rhythm, S1, S2 without murmur, rub or gallop. ABDOMEN: Soft, nontender, nondistended, normoactive bowel sounds. PEG in place. EXTREMITIES: 2+ pulses, warm, well-perfused, no edema. NEUROLOGICAL: Cranial nerves II through XII grossly intact. Moves all 4 ext with intact sensorium and no new fnd PSYCH: Normal mood, baseline affect. Not agitated. Limited assessment due to underlying clinical condition SKIN: Warm, dry, normal turgor, no rashes or lesions noted Laboratory Results - last 24 hr 09/22/19 06:50 Neutrophils % (Manual) 74.4 Band Neutrophils % 2.3 Lymphocytes % (Manual) 14.0 Monocytes % (Manual) 5 Eosinophils % (Manual) 2.3 Basophils % (Manual) 2.3 H Myelocytes % (Man) 0 Promyelocytes % (Man) 0 Blast Cells % (Manual) 0 Metamyelocytes 0 Platelet Estimate Normal Polychromasia 1+ Active Medications Generic Name Dose Route Start Last Admin Trade Name Freq PRN Reason Stop Dose Admin Albuterol Sulfate 1 amp 09/18/19 19:17 Ventolin 0.083% Nebulizer Soln - NEB Q4H PRN SHORT OF BREATH/WHEEZING Albuterol/Ipratropium 1 amp 09/18/19 20:00 09/23/19 07:20 Duoneb - NEB Not Given RQID ASHA Benztropine Mesylate 0.5 mg 09/20/19 10:00 09/22/19 21:57 Cogentin - PO 0.5 mg BID ASHA Administration Chlorhexidine Gluconate 1 applic 09/19/19 22:00 09/22/19 21:58 Hibiclens For Decolonization - TP 1 applic HS ASHA Administration Clonazepam 1 mg 09/20/19 10:00 09/22/19 21:57 Klonopin - PO 1 mg BID A[facility] Administration Haloperidol 5 mg 09/20/19 22:00 09/22/19 21:57 Haldol - PO 5 mg BID [facility] Administration Heparin Sodium (Porcine) 5,000 unit 09/18/19 06:00 09/23/19 05:36 Heparin - SQ Not Given TID ASHA Ceftriaxone Sodium 2 gm/ 100 mls @ 200 mls/hr 09/18/19 15:30 09/22/19 09:12 Dextrose IVPB 200 mls/hr DAILY [facility] Administration Protocol Azithromycin 500 mg in 250 mls @ 250 mls/hr 09/18/19 16:37 09/22/19 09:12 Zithromax 500mg Ivpb (Pre-Docked) IVPB 250 mls/hr DAILY [facility] Administration Sodium Chloride 1,000 mls @ 42 mls/hr 09/20/19 09:14 09/21/19 11:19 Normal Saline - IV 42 mls/hr ASDIR ASHA Administration Methylprednisolone Sodium Succinate 40 mg 09/22/19 10:00 09/22/19 09:11 Solu-Medrol - IVPUSH 40 mg DAILY [facility] Administration Mupirocin 1 applic 09/19/19 10:00 09/22/19 21:58 Bactroban Ointment (For Decolonization) - NS 09/24/19 09:59 1 applic BID ASHA Administration Pantoprazole Sodium 40 mg 09/18/19 19:30 09/22/19 09:12 Protonix Iv IVPUSH 40 mg DAILY [facility] Administration ASSESSMENT/PLAN: Transferring out of ICU; restart baclofen. Problems include: -Acute respiratory failure secondary to L-sided CAP (negative flu, cultures with NGTD, negative UAg's, CXR results appreciated. 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 - New Patient This patient is new to me today: No - Critical Care Critical Care patient: No
[2019-09-23] MEDS: HALOPERIDOL 5 MG TABLET (FP) PO SCH ×2 (09:09→21:57)
[2019-09-23] MEDS: PANTOPRAZOLE SODIUM 40 MG VIAL IVPUSH SCH (09:30)
[2019-09-23] MEDS: clonazePAM 0.5 MG TABLET PO SCH ×2 (09:30→21:58)
[2019-09-23] MEDS: BENZTROPINE MESYLATE 0.5 MG TABLET (FP) PO SCH ×2 (09:30→21:58)
[2019-09-23] MEDS: methylPREDNISolone NA SUCC 40 MG/1 ML VIAL IVPUSH SCH (09:30)
[2019-09-23] MEDS: AZITHROMYCIN IVPB 500 MG/250 ML BAG IVPB SCH (09:31)
[2019-09-23] MEDS: CEFTRIAXONE 2 GM in DEXTROSE 5%-WATER 100 ML IVPB SCH (09:31)
[2019-09-23] MEDS: SODIUM CHLORIDE 1,000 ML IV SCH (09:32)
[2019-09-23] MEDS: MUPIROCIN 2% TOPICAL OINTMENT FOR DECOLONIZATION NS SCH ×2 (10:12→21:58)
--- NOTE | 2019-09-23 11:00 | PN ---
Progress Note (short form) - Note Progress Note: PULM/CCM Pt seen and examined in the ICU. No events overnight, respiratory status stable , ready for Transfer to the Floor. Active Medications Albuterol Sulfate (Ventolin 0.083% Nebulizer Soln -) 1 amp NEB Q4H PRN PRN Reason: SHORT OF BREATH/WHEEZING Albuterol/Ipratropium (Duoneb -) 1 amp NEB RQID [facility] Last Admin: 09/23/19 07:20 Dose: Not Given Benztropine Mesylate (Cogentin -) 0.5 mg PO BID [facility] Last Admin: 09/23/19 09:30 Dose: 0.5 mg Chlorhexidine Gluconate (Hibiclens For Decolonization -) 1 applic TP HS [facility] Last Admin: 09/22/19 21:58 Dose: 1 applic Clonazepam (Klonopin -) 1 mg PO BID [facility] Last Admin: 09/23/19 09:30 Dose: 1 mg Haloperidol (Haldol -) 5 mg PO BID [facility] Last Admin: 09/23/19 09:09 Dose: 5 mg Heparin Sodium (Porcine) (Heparin -) 5,000 unit SQ TID [facility] Last Admin: 09/23/19 05:36 Dose: Not Given Ceftriaxone Sodium 2 gm/ (Dextrose) 100 mls @ 200 mls/hr IVPB DAILY [facility]; Protocol Last Admin: 09/23/19 09:31 Dose: 200 mls/hr Azithromycin (Zithromax 500mg Ivpb (Pre-Docked)) 500 mg in 250 mls @ 250 mls/ hr IVPB DAILY [facility] Last Admin: 09/23/19 09:31 Dose: 250 mls/hr Sodium Chloride (Normal Saline -) 1,000 mls @ 42 mls/hr IV ASDIR [facility] Last Admin: 09/23/19 09:32 Dose: Not Given Methylprednisolone Sodium Succinate (Solu-Medrol -) 40 mg IVPUSH DAILY [facility] Last Admin: 09/23/19 09:30 Dose: 40 mg Mupirocin (Bactroban Ointment (For Decolonization) -) 1 applic NS BID [facility] Stop: 09/24/19 09:59 Last Admin: 09/23/19 10:12 Dose: 1 applic Pantoprazole Sodium (Protonix Iv) 40 mg IVPUSH DAILY [facility] Last Admin: 12/01/19 09:30 Dose: 40 mg Vital Signs Period Temp Pulse Resp BP Sys/Horne Pulse Ox Last 24 Hr 98.0 F-98.4 F 59-117 21-27 102-132/75-108 94-94 Intake & Output 09/20/19 09/21/19 09/22/19 09/23/19 23:59 23:59 23:59 23:59 Intake Total 1330 240 690 180 Output Total 2700 2400 1200 Balance -1370 -2160 -510 180 Weight 65.317 kg Gen: awake, mildly agitated Heart: RRR Lung: clear Abd: soft, nontender Ext: no edema CBC, BMP 09/22/19 06:50 09/22/19 06:50 CXR 09/21: A single view of the chest is been submitted. Since the prior study of 09/20/2019 at 0918 hours the left base changes have diminished. There is no sign of an acute process. There is chin artifact and motion artifact. Correlation recommended. ASSESS: Acute Hypoxic and Hypercapneic Respiratory Failure improving Pneumonia likely Aspiration Sepsis Cerebral Palsy Mental Retardation PLAN: - taper Fio2 to keep SpO2 >90% - inhaled bronchodilators - taper steroids - aspiration precautions - antibiotics to cover aspiration - f/u cultures - speech and swallow__>start diet - IVFs - DVT/GI prophylaxis - Transfer to floor [facility] ICU PULM/CCM [id number]
[2019-09-23] MEDS ORDERED: PT OWN MED DRAWER 7, Y5N ONE (21:48)
[2019-09-23] MEDS: CHLORHEXIDINE GLUCONATE 4% CLEANSER FOR DECOLONIZATION TP SCH (21:58)
[2019-09-24] MEDS: HEPARIN NA (PORCINE) 5,000 UNITS/ML 1ML VIAL SQ SCH ×3 (07:03→22:28)
--- NOTE | 2019-09-24 07:52 | PN ---
<Gerardo Felton - Last Filed: 09/24/19 08:34> Physical Exam: SUBJECTIVE: Patient seen and examined at bedside. No acute events overnight. OBJECTIVE: Vital Signs Period Temp Pulse Resp BP Sys/Horne Pulse Ox Last 24 Hr 99 F-99.8 F 64-121 20-26 103-126/62-87 94-95 GENERAL: Awake, NAD HEAD: AT/NC EYES: bilateral corneal clouding NECK: Supple LUNGS: CTA b/l HEART: Tachycardia, S1S2 ABDOMEN: Soft, NDNT EXTREMITIES: No CCE Active Medications Generic Name Dose Route Start Last Admin Trade Name Freq PRN Reason Stop Dose Admin Benztropine Mesylate 0.5 mg 09/20/19 10:00 09/23/19 21:58 Cogentin - PO 0.5 mg BID ASHA Administration Chlorhexidine Gluconate 1 applic 09/19/19 22:00 09/23/19 21:58 Hibiclens For Decolonization - TP 1 applic HS ASHA Administration Clonazepam 1 mg 09/20/19 10:00 09/23/19 21:58 Klonopin - PO 1 mg BID ASHA Administration Haloperidol 5 mg 09/20/19 22:00 09/23/19 21:57 Haldol - PO 5 mg BID ASHA Administration Heparin Sodium (Porcine) 5,000 unit 09/18/19 06:00 09/24/19 07:03 Heparin - SQ 5,000 unit TID ASHA Administration Ceftriaxone Sodium 2 gm/ 100 mls @ 200 mls/hr 09/18/19 15:30 09/23/19 09:31 Dextrose IVPB 200 mls/hr DAILY ASHA Administration Protocol Azithromycin 500 mg in 250 mls @ 250 mls/hr 09/18/19 16:37 09/23/19 09:31 Zithromax 500mg Ivpb (Pre-Docked) IVPB 250 mls/hr DAILY ASHA Administration Methylprednisolone Sodium Succinate 40 mg 09/22/19 10:00 09/23/19 09:30 Solu-Medrol - IVPUSH 40 mg DAILY ASHA Administration Mupirocin 1 applic 09/19/19 10:00 09/23/19 21:58 Bactroban Ointment (For Decolonization) - NS 09/24/19 09:59 1 applic BID ASHA Administration Pantoprazole Sodium 40 mg 09/18/19 19:30 09/23/19 09:30 Protonix Iv IVPUSH 40 mg DAILY ASHA Administration ASSESSMENT/PLAN: 34 y/o M with hx of cerebral palsy, intellectual disability, and blindness BIBEMS from facility because of lethargy and cough with increasing sputum production found to be septic, hypothermic, with presumed aspiration pneumonia source. Patient with acute hypoxic hypercapnic respiratory failure - intubated, sedated, peripheral warming provided in the ED along with vanc, zosyn, IVF. #sepsis 2/2 likely aspiration PNA #acute hypoxic RF -improved status, for transfer to floor -received vanc zosyn in ER. c/w ceftriaxone, zithromax (09/18) -ucx, blood cx both NEGATIVE. u legionella Negative, sputum cx ordered. lactic, UA WNL -c/w duonebs RQID, nebs PRN -medrol 40mg IVP -f/u RSV panel. flu (-) -ID on board: Dr. Roque #cerebral palsy intellectual disability -c/w benztropine, klonopin, haldol #F/E/N No standing fluids continue to follow lytes puree diet #PPX DVT: hep 5k sq tid GI: protonix #Dispo improved resp status for transfer to floor from ICU Visit type - Emergency Visit Emergency Visit: Yes ED Registration Date: 09/18/19 Care time: The patient presented to the Emergency Department on the above date and was hospitalized for further evaluation of their emergent condition. - New Patient This patient is new to me today: No - Critical Care Critical Care patient: Yes Total Critical Care Time (in minutes): 35 Critical Care Statement: The care of this patient involved high complexity decision making to prevent further life threatening deterioration of the patient 's condition and/or to evaluate & treat vital organ system(s) failure or risk of failure. - Discharge Referral Referred to [facility] Med P.C.: No ATTENDING PHYSICIAN STATEMENT I saw and evaluated the patient. I reviewed the resident's note and discussed the case with the resident. I agree with the resident's findings and plan as documented. SUBJECTIVE: OBJECTIVE: ASSESSMENT AND PLAN: <Isiah Johnson - Last Filed: 09/26/19 08:10> Physical Exam: Seen and examined; agree with above aside from as supplemented below by myself. Personally verified all historical information and alex PE findings. Independently reviewed all labs and diagnostics. I discussed the case at length with the resident and consulting services. All questions answered. Pateint stable; XF to floor. No new respiratory issues. Weaning from O2 Couldnt complete ROS 2/2 clinical condition. GENERAL: The patient is awake, alert, and responds to verbal and tactile stimuli , and is in no acute distress. HEENT: PERRLA EOMI AT NECK: Trachea midline, full range of motion, supple. LUNGS: Breath sounds equal, poor effort with improved scattered rales no accessory muscle use; w/ sym exp HEART: Regular rate and rhythm, S1, S2 without murmur, rub or gallop. ABDOMEN: Soft, nontender, nondistended, normoactive bowel sounds. PEG in place. EXTREMITIES: 2+ pulses, warm, well-perfused, no edema. NEUROLOGICAL: Cranial nerves II through XII grossly intact. Moves all 4 ext with intact sensorium and no new fnd PSYCH: Normal mood, baseline affect. Not agitated. Limited assessment due to underlying clinical condition SKIN: Warm, dry, normal turgor, no rashes or lesions noted Microbiology 09/17/19 23:03 Blood - Peripheral Venous Blood Culture - Final NO GROWTH AFTER 5 DAYS INCUBATION 09/17/19 23:03 Blood - Peripheral Venous Blood Culture - Final NO GROWTH AFTER 5 DAYS INCUBATION 09/19/19 03:45 Urine For Antigen Detection Legionella Antigen - Final 09/19/19 03:45 Urine For Antigen Detection Streptococcus pneumoniae Antigen (M - Final 09/18/19 00:30 Urine - Urine - Catheterized Urine Culture - Final NO GROWTH OBTAINED ATTENDING PHYSICIAN STATEMENT I saw and evaluated the patient. I reviewed the resident's note and discussed the case with the resident. I agree with the resident's findings and plan as documented. SUBJECTIVE: OBJECTIVE: ASSESSMENT AND PLAN:
--- NOTE | 2019-09-24 08:07 | PN ---
Physical Exam: SUBJECTIVE: Patient seen and examined by the bedside. Laughs intermittently, appears to be at baseline mentation. OBJECTIVE: Vital Signs Period Temp Pulse Resp BP Sys/Horne Pulse Ox Last 24 Hr 99 F-99.8 F 64-121 20-26 103-126/62-87 94-95 GENERAL: Awake, nonverbal HEENT: Corneal clouding B/L, moist mucous membranes. NECK: supple. no JVD LUNGS: Clear B/L, no wheezing or crackles HEART: RRR, no rubs or murmurs ABDOMEN: Soft, nontender, nondistended. NEURO: Moves all extremities EXTREMITIES: 2+ pulses, no edema CBC, BMP 09/22/19 06:50 09/22/19 06:50 Current Medications Benztropine Mesylate (Cogentin -) 0.5 mg PO BID [facility] Last Admin: 09/23/19 21:58 Dose: 0.5 mg Chlorhexidine Gluconate (Hibiclens For Decolonization -) 1 applic TP HS [facility] Last Admin: 09/23/19 21:58 Dose: 1 applic Clonazepam (Klonopin -) 1 mg PO BID [facility] Last Admin: 09/23/19 21:58 Dose: 1 mg Haloperidol (Haldol -) 5 mg PO BID [facility] Last Admin: 09/23/19 21:57 Dose: 5 mg Heparin Sodium (Porcine) (Heparin -) 5,000 unit SQ TID [facility] Last Admin: 09/24/19 07:03 Dose: 5,000 unit Ceftriaxone Sodium 2 gm/ (Dextrose) 100 mls @ 200 mls/hr IVPB DAILY [facility]; Protocol Last Admin: 09/23/19 09:31 Dose: 200 mls/hr Azithromycin (Zithromax 500mg Ivpb (Pre-Docked)) 500 mg in 250 mls @ 250 mls/ hr IVPB DAILY [facility] Last Admin: 09/23/19 09:31 Dose: 250 mls/hr Methylprednisolone Sodium Succinate (Solu-Medrol -) 40 mg IVPUSH DAILY [facility] Last Admin: 09/23/19 09:30 Dose: 40 mg Mupirocin (Bactroban Ointment (For Decolonization) -) 1 applic NS BID [facility] Stop: 09/24/19 09:59 Last Admin: 09/23/19 21:58 Dose: 1 applic Pantoprazole Sodium (Protonix Iv) 40 mg IVPUSH DAILY [facility] Last Admin: 09/23/19 09:30 Dose: 40 mg ASSESSMENT/PLAN: 34M with PMH of cerebral palsy, intellectual disability, and blindness BIBEMS from facility because of lethargy and cough with increasing sputum production found to be septic, hypothermic with acute hypoxic hypercapnic respiratory failure. He was intubated and admitted 09/17 for suspected PNA, extubated 09/19. #Neuro: - Off sedation - Continue home meds Benztropine, Haloperidol, Clonazepam #CV: - Hemodynamically stable #Pulm: - Extubated 09/19, currently on NC 2L - PNA: Ceftriaxone, Azythromycin started 09/19 as per ID - Solu Medrol 40mg IVPB, will continue to taper - CXR 09/24: Clear with no signs of congestion/infiltrates - Aspiration precautions #Renal: - BUN:Cr 14.4/0.7 #ID: - PNA: Ceftriaxone, Azythromycin started 09/19 as per ID - Temp 99 overnight, WBC 9.3 - Blood, Strep, Legionella cultures negative #GI: - Dysphagia puree diet, aspiration risk #FEN - Dysphagia puree diet #Prophylaxis - SCDs - Protonix 40mg IVPUSH #Dispo: - Transfer orders placed for Med Surg ATTENDING PHYSICIAN STATEMENT I saw and evaluated the patient. I reviewed the resident's note and discussed the case with the resident. I agree with the resident's findings and plan as documented. SUBJECTIVE: OBJECTIVE: ASSESSMENT AND PLAN:
[2019-09-24] MEDS ORDERED: DEXTROSE 5%-WATER 100 ML IVPB ONE (09:31)
[2019-09-24 09:46] LABS: BASO % 0.5 % (0-2.0); EOS % 4.1 % (0-4.5); HEMATOCRIT 41.1 % (35.4-49); LYMPH % 26.2 % (8-40); MCH 28.8 pg (25.7-33.7); MCHC 34.2 g/dl (32.0-35.9); MEAN CELL VOLUME 84.2 fl (80-96); MEAN PLT VOLUME 8.1 fl (7.5-11.1); MONO % 10.8 % (3.8-10.2); NEUT % 58.4 % (42.8-82.8); PLATELET COUNT 276 K/MM3 (134-434); RBC 4.87 M/mm3 (4.00-5.60); RDW 13.7 % (11.9-15.9); WHITE BLOOD COUNT 9.3 K/mm3 (4.0-10.0)
[2019-09-24] MEDS: PANTOPRAZOLE SODIUM 40 MG VIAL IVPUSH SCH (09:59)
[2019-09-24] MEDS: CEFTRIAXONE 2 GM in DEXTROSE 5%-WATER 100 ML IVPB SCH (09:59)
[2019-09-24] MEDS: methylPREDNISolone NA SUCC 40 MG/1 ML VIAL IVPUSH SCH (10:00)
[2019-09-24] MEDS: clonazePAM 0.5 MG TABLET PO SCH ×2 (10:00→21:33)
[2019-09-24] MEDS: AZITHROMYCIN IVPB 500 MG/250 ML BAG IVPB SCH (10:01)
[2019-09-24] MEDS: BENZTROPINE MESYLATE 0.5 MG TABLET (FP) PO SCH ×2 (10:02→22:29)
[2019-09-24 10:06] LABS: BLOOD UREA NITROGEN 14.4 mg/dL (7-18); CALCIUM 8.8 mg/dL (8.5-10.1); CREATININE 0.7 mg/dL (0.55-1.3); POTASSIUM 3.7 mmol/L (3.5-5.1)
[2019-09-24] MEDS ORDERED: PT OWN MED DRAWER 7, Y5N ONE ×2 (10:20)
[2019-09-24] MEDS: HALOPERIDOL 5 MG TABLET (FP) PO SCH ×2 (10:26→22:29)
--- NOTE | 2019-09-24 10:51 | PN ---
Progress Note, Physician History of Present Illness: AWAKE, NON VERBAL REMAINS EXTUBATED BREATHING NON LABORED + COUGH NOTED LOW GRADE TEMP WBC WNL VIRAL RESP PANEL PENDING - Current Medication List Current Medications: Active Medications Benztropine Mesylate (Cogentin -) 0.5 mg PO BID [facility] Last Admin: 09/24/19 10:02 Dose: 0.5 mg Chlorhexidine Gluconate (Hibiclens For Decolonization -) 1 applic TP HS [facility] [place] Last Admin: 09/23/19 21:58 Dose: 1 applic Clonazepam (Klonopin -) 1 mg PO BID [facility] [place] Last Admin: 09/24/19 10:00 Dose: 1 mg Haloperidol (Haldol -) 5 mg PO BID [facility] [place] Last Admin: 09/24/19 10:26 Dose: 5 mg Heparin Sodium (Porcine) (Heparin -) 5,000 unit SQ TID [facility] [place] Last Admin: 09/24/19 07:03 Dose: 5,000 unit Ceftriaxone Sodium 2 gm/ (Dextrose) 100 mls @ 200 mls/hr IVPB DAILY [facility] [place]; Protocol Last Admin: 09/24/19 09:59 Dose: 200 mls/hr Azithromycin (Zithromax 500mg Ivpb (Pre-Docked)) 500 mg in 250 mls @ 250 mls/ hr IVPB DAILY [facility] [place] Last Admin: 09/24/19 10:01 Dose: 250 mls/hr Methylprednisolone Sodium Succinate (Solu-Medrol -) 40 mg IVPUSH DAILY [facility] [place] Last Admin: 09/24/19 10:00 Dose: 40 mg Pantoprazole Sodium (Protonix Iv) 40 mg IVPUSH DAILY [facility] [place] Last Admin: 09/24/19 09:59 Dose: 40 mg - Objective Vital Signs: Vital Signs Temperature 99.0 F 09/23/19 22:00 Pulse Rate 88 09/24/19 06:00 Respiratory Rate 20 09/24/19 06:00 Blood Pressure 105/87 09/24/19 06:00 O2 Sat by Pulse Oximetry (%) 95 09/23/19 20:22 Constitutional: Yes: No Distress Eyes: Yes: Conjunctiva Clear Cardiovascular: Yes: Regular Rate and Rhythm, S1, S2 Respiratory: Yes: Rhonchi Gastrointestinal: Yes: Normal Bowel Sounds, Soft. No: Tenderness Labs: CBC, BMP 09/24/19 09:20 09/24/19 09:20 INR, PTT INR 1.21 (0.83-1.09) H 09/17/19 22:30 Assessment/Plan S/P RESP FAILURE PNEUMONIA CP/MR CONTINUE CEFTRIAXONE/ ZITHROMAX
--- NOTE | 2019-09-24 12:07 | PN ---
Teaching Attending Note Name of Resident: Tommy Gallo ATTENDING PHYSICIAN STATEMENT I saw and evaluated the patient. I reviewed the resident's note and discussed the case with the resident. I agree with the resident's findings and plan as documented. SUBJECTIVE: Patient seen and examined in the ICU. Remains extubated NAD on NC O2. Intake & Output 09/21/19 09/22/19 09/23/19 09/24/19 23:59 23:59 23:59 23:59 Intake Total 240 690 990 120 Output Total 2400 1200 Balance -2160 -510 990 120 Last Vital Signs Temp Pulse Resp BP Pulse Ox 99.0 F 88 20 105/87 95 09/23/19 22:00 09/24/19 06:00 09/24/19 06:00 09/24/19 06:00 09/23/19 20:22 Active Medications Benztropine Mesylate (Cogentin -) 0.5 mg PO BID [facility] Last Admin: 09/24/19 10:02 Dose: 0.5 mg Chlorhexidine Gluconate (Hibiclens For Decolonization -) 1 applic TP HS [facility] Last Admin: 09/23/19 21:58 Dose: 1 applic Clonazepam (Klonopin -) 1 mg PO BID [facility] Last Admin: 09/24/19 10:00 Dose: 1 mg Haloperidol (Haldol -) 5 mg PO BID [facility] Last Admin: 09/24/19 10:26 Dose: 5 mg Heparin Sodium (Porcine) (Heparin -) 5,000 unit SQ TID [facility] Last Admin: 09/24/19 07:03 Dose: 5,000 unit Ceftriaxone Sodium 2 gm/ (Dextrose) 100 mls @ 200 mls/hr IVPB DAILY [facility]; Protocol Last Admin: 09/24/19 09:59 Dose: 200 mls/hr Azithromycin (Zithromax 500mg Ivpb (Pre-Docked)) 500 mg in 250 mls @ 250 mls/ hr IVPB DAILY [facility] Last Admin: 09/24/19 10:01 Dose: 250 mls/hr Methylprednisolone Sodium Succinate (Solu-Medrol -) 40 mg IVPUSH DAILY [facility] Last Admin: 09/24/19 10:00 Dose: 40 mg Pantoprazole Sodium (Protonix Iv) 40 mg IVPUSH DAILY [facility] Last Admin: 09/24/19 09:59 Dose: 40 mg Gen: awake, NAD on NC O2 Heart: RRR Lung: clear Abd: soft, nontender Ext: no edema Neuro: baseline deficit Laboratory Results - last 24 hr 09/24/19 09/24/19 09:20 09:20 WBC 9.3 RBC 4.87 Hgb 14.0 Hct 41.1 MCV 84.2 MCH 28.8 MCHC 34.2 RDW 13.7 Plt Count 276 MPV 8.1 Absolute Neuts (auto) 5.4 Neutrophils % 58.4 Lymphocytes % 26.2 Monocytes % 10.8 H Eosinophils % 4.1 D Basophils % 0.5 Nucleated RBC % 0 Sodium 141 Potassium 3.7 Chloride 108 H Carbon Dioxide 26 Anion Gap 6 L BUN 14.4 Creatinine 0.7 Est GFR (CKD-EPI)AfAm 143.71 Est GFR (CKD-EPI)NonAf 123.99 Random Glucose 99 Calcium 8.8 ASSESSMENT AND PLAN: Acute Hypoxic and Hypercapneic Respiratory Failure improving Pneumonia likely Aspiration Sepsis Cerebral Palsy Mental Retardation - ABX - PO as tolerated - IVF - inhaled bronchodilators - Supplemental O2 to maintain saturation - aspiration precautions - DVT/GI prophylaxis - Monitor on floor Dr Berger
--- NOTE | 2019-09-24 14:10 | PN ---
Progress Note, CHIEF ADMINISTRATIVE OFFICER - Note Progress Note: Selected Entries 09/22/19 09/22/19 09/23/19 10:00 22:00 09:31 Breakfast 75% 100% Lunch 75% Supper 75% Temperature 09/23/19 09/23/19 09/23/19 11:00 15:00 19:00 Breakfast Lunch Supper Temperature 99.8 F H 99.6 F 99 F 09/23/19 09/24/19 09/24/19 22:00 08:00 12:00 Breakfast Lunch Supper Temperature 99.0 F 98.2 F 98.1 F Laboratory Tests 09/24/19 09:20 WBC 9.3 On puree/nectar Per EMR Acute Hypoxic and Hypercapneic Respiratory Failure improving Pneumonia likely Aspiration Sepsis Cerebral Palsy Mental Retardation
[2019-09-24 14:34] LABS: ANISOCYTOSIS 1+; MACROCYTOSIS 0; PLATELET ESTIMATE NORMAL
[2019-09-25] MEDS: HEPARIN NA (PORCINE) 5,000 UNITS/ML 1ML VIAL SQ SCH ×3 (06:28→22:30)
[2019-09-25] MEDS ORDERED: predniSONE 20 MG TABLET (UD) PO SCH (10:00)
[2019-09-25] MEDS ORDERED: AZITHROMYCIN IVPB 500 MG/250 ML BAG IVPB SCH (10:00)
[2019-09-25] MEDS ORDERED: methylPREDNISolone NA SUCC 40 MG/1 ML VIAL IVPUSH SCH (10:00)
[2019-09-25] MEDS ORDERED: PANTOPRAZOLE SODIUM 40 MG VIAL IVPUSH SCH (10:00)
[2019-09-25 10:11] LABS: BASO % 0.4 % (0-2.0); EOS % 2.2 % (0-4.5); HEMATOCRIT 41.5 % (35.4-49); HEMOGLOBIN 14.2 GM/dL (11.7-16.9); LYMPH % 24.7 % (8-40); MCH 28.8 pg (25.7-33.7); MCHC 34.1 g/dl (32.0-35.9); MEAN CELL VOLUME 84.4 fl (80-96); MEAN PLT VOLUME 8.1 fl (7.5-11.1); MONO % 9.1 % (3.8-10.2); NEUT % 63.6 % (42.8-82.8); PLATELET COUNT 318 K/MM3 (134-434); RBC 4.92 M/mm3 (4.00-5.60); RDW 13.7 % (11.9-15.9); WHITE BLOOD COUNT 11.5 K/mm3 (4.0-10.0)
[2019-09-25 10:37] LABS: BLOOD UREA NITROGEN 21.1 mg/dL (7-18); CALCIUM 9.3 mg/dL (8.5-10.1); POTASSIUM 3.8 mmol/L (3.5-5.1)
--- NOTE | 2019-09-25 10:37 | PN ---
Progress Note (short form) - Note Progress Note: PULMONARY Pt nonverbal, easily agitated. No fevers recorded. Vital Signs Period Temp Pulse Resp BP Sys/Horne Pulse Ox Last 24 Hr 97.1 F-99.8 F 100-119 20-20 96-134/52-75 Gen: breathing nonlabored Heart: RRR Lung: decreased breath sounds at the bases Abd: soft, nontender Ext: no edema CBC, BMP 09/25/19 09:40 Active Medications Azithromycin (Zithromax -) 500 mg PO DAILY [facility] Benztropine Mesylate (Cogentin -) 0.5 mg PO BID [facility] Last Admin: 09/24/19 22:29 Dose: 0.5 mg Clonazepam (Klonopin -) 1 mg PO BID [facility] Last Admin: 09/24/19 21:33 Dose: 1 mg Haloperidol (Haldol -) 5 mg PO BID [facility] Last Admin: 09/24/19 22:29 Dose: 5 mg Heparin Sodium (Porcine) (Heparin -) 5,000 unit SQ TID [facility] Last Admin: 09/25/19 06:28 Dose: 5,000 unit Ceftriaxone Sodium 2 gm/ (Dextrose) 100 mls @ 200 mls/hr IVPB DAILY [facility]; Protocol Pantoprazole Sodium (Protonix -) 40 mg PO DAILY [facility] Prednisone (Deltasone -) 40 mg PO DAILY [facility] A/P Acute Hypoxic and Hypercapneic Respiratory Failure improving Pneumonia likely Aspiration Sepsis Cerebral Palsy Mental Retardation - complete antibiotics, can likely change to PO - can d/c steroids - inhaled bronchodilators - taper Fio2 to keep SpO2 >90% - aspiration precautions - DVT prophylaxis
[2019-09-25] MEDS ORDERED: PT OWN MED DRAWER 7, Y5N ONE ×2 (10:39→20:43)
[2019-09-25] MEDS: PANTOPRAZOLE 40 MG TABLET (FP) PO SCH (10:41)
[2019-09-25] MEDS: AZITHROMYCIN 250 MG TABLET PO SCH (10:42)
[2019-09-25] MEDS: BENZTROPINE MESYLATE 0.5 MG TABLET (FP) PO SCH ×2 (10:42→22:29)
[2019-09-25] MEDS: clonazePAM 0.5 MG TABLET PO SCH ×2 (10:42→22:29)
[2019-09-25] MEDS ORDERED: HALOPERIDOL LACTATE 5 MG/ML IM ONE (10:51)
[2019-09-25] MEDS: HALOPERIDOL 5 MG TABLET (FP) PO SCH ×2 (10:53→22:29)
--- NOTE | 2019-09-25 11:22 | PN ---
Progress Note (short form) - Note Progress Note: Hospitalist Medicine Pt agitated today; requiring IM haldol, as well as jerome, wrist, and mitten restraints. Vitals 09/25/19 06:52 Temperature 98 F Pulse Rate 100 H Respiratory 20 Rate Blood Pressure 134/70 Physical Exam pt did not permit today; thrashing in bed Laboratory Tests 09/25/19 09/25/19 09/25/19 09:40 09:40 09:40 WBC 11.5 H Hgb 14.2 Hct 41.5 Plt Count 318 Sodium 143 Potassium 3.8 Chloride 110 H Carbon Dioxide 25 Anion Gap 9 BUN 21.1 H Creatinine 1.0 Random Glucose 107 H Lactic Acid 2.4 H* Microbiology 09/19/19 03:45 Urine For Antigen Detection Legionella Antigen - Final 09/19/19 03:45 Urine For Antigen Detection Streptococcus pneumoniae Antigen (M - Final 09/18/19 00:30 Urine - Urine - Catheterized Urine Culture - Final NO GROWTH OBTAINED 09/17/19 23:03 Blood - Peripheral Venous Blood Culture - Final NO GROWTH AFTER 5 DAYS INCUBATION 09/17/19 23:03 Blood - Peripheral Venous Blood Culture - Final NO GROWTH AFTER 5 DAYS INCUBATION Imaging 09/17 CXR: slight increase in lung markings at left base - early infiltrate or atelectasis. angles are sharp. compared to prior study of 08/25/19 Most recent CXR: 09/18: +ETT, NGT in place, R infiltrate has diminished. L infiltrate has become more pronounced in the L infrahilar area and has become a bit rounded. mediastinum is not widened. angles are sharp. soft tissues intact. 09/20 CXR: interval better evaluation of the left lower lobe with residual atelectatic changes and infiltrates. no gross pneumothorax, or pleural effusion are identified. 09/21 CXR: L base changes have diminished, no sign of acute process. 09/24 CXR: clear lungs, normal mediastinum, bowel in RUQ. acute process not seen. no infiltrate. Assessment/plan 34 y/o M with hx of cerebral palsy, intellectual disability, and blindness BIBEMS from facility because of lethargy and cough with increasing sputum production found to be septic, hypothermic, with presumed aspiration pneumonia source. Patient with acute hypoxic hypercapnic respiratory failure - intubated, sedated, peripheral warming provided in the ED along with vanc, zosyn, IVF. #sepsis 2/2 likely aspiration PNA #acute hypoxic RF -improved resp status -received vanc zosyn in ER. c/w ceftriaxone, zithromax (09/18) will change to PO based on ID recs -cx have been (-) -latest lactic 2.4. will trend, hydrate -c/w duonebs RQID, nebs PRN -have d/c medrol -f/u RSV panel. flu (-) -ID: Dr. Roque -Pulm: Dr. Weaver #Agitation r/o sz -case d/w neuro; will be seen -less likely concern for sz, more likely behavioral -no need for EEG at this time -f/u CTH -repeat lactic: has normalized -neuro: Dr. Virgen #cerebral palsy intellectual disability -c/w benztropine, klonopin, haldol, trazodone -w/ worsening agitation, will need to monitor may need uptitration in psych meds -Psych consult: Dr. Jaime #F/E/N off IVF continue to follow lytes puree diet, encourage hydration #PPX DVT: hep 5k sq tid GI: protonix #Dispo improved resp status however w/ agitation must be off restraints x 24 hrs prior to return still on IV abx (rocephin) ; will need to change to PO based on ID
[2019-09-25] MEDS ORDERED: HALOPERIDOL LACTATE 5 MG/ML IM PRN (11:38)
--- NOTE | 2019-09-25 11:40 | PN ---
Addendum entered and electronically signed by Gerardo Felton, RESIDENT 09/25/19 11 :52: Went over patient's home medication list. Trazadone and Haloperidol 10 mg HS reconciled. Will commence this evening. Original Note: Progress Note (short form) - Note Progress Note: Microblogged by RN that patient severely agitated, hitting head against side rail. Pt with bruising and swelling of left face, laceration under left lower eyelid. VS 11:28 am T 98.1, 113/51, 107 HR. 96% Will order CT Head. Haloperidol 1 mg QD PRN for Agitation Consider Psychiatry consult if behavior continues. discussed with Attending- Dr Johnson. <Gerardo Felton - Last Filed: 09/25/19 11:40> - Note Progress Note: Seen and assessed; agree with above <Isiah Johnson - Last Filed: 09/26/19 08:04>
[2019-09-25] MEDS ORDERED: DEXTROSE 5%-WATER 100 ML IVPB ONE (11:41)
[2019-09-25] MEDS: CEFTRIAXONE 2 GM in DEXTROSE 5%-WATER 100 ML IVPB SCH (11:51)
[2019-09-25 12:45] LABS: PLATELET ESTIMATE NORMAL
--- NOTE | 2019-09-25 13:44 | EKG ---
Test Reason : Blood Pressure : / mmHG Vent. Rate : 093 BPM Atrial Rate : 093 BPM P-R Int : 128 ms QRS Dur : 082 ms QT Int : 348 ms P-R-T Axes : 077 082 062 degrees QTc Int : 432 ms NORMAL SINUS RHYTHM NORMAL ECG WHEN COMPARED WITH ECG OF 20-SEP-2019 12:30, NO SIGNIFICANT CHANGE WAS FOUND Confirmed by MD Linda, Paul ([id number]) on 09/25/2019 1:43:50 PM Referred By: Sj BOGGS Confirmed By:Paul Mckeon MD
[2019-09-25] MEDS: BACLOFEN 10 MG TABLET (FP) PO SCH ×2 (14:25→22:30)
--- NOTE | 2019-09-25 17:46 | PN ---
Progress Note, Physician History of Present Illness: AWAKE, NON VERBAL SELF-INFLICTED HEAD INJURY BREATHING NON LABORED LOW GRADE TEMP WBC WNL VIRAL RESP PANEL PENDING - Current Medication List Current Medications: Active Medications Azithromycin (Zithromax -) 500 mg PO DAILY [facility] Last Admin: 09/25/19 10:42 Dose: 500 mg Baclofen (Lioresal -) 15 mg PO TID [facility] Last Admin: 09/25/19 14:25 Dose: 15 mg Benztropine Mesylate (Cogentin -) 0.5 mg PO BID [facility] Last Admin: 09/25/19 10:42 Dose: 0.5 mg Clonazepam (Klonopin -) 1 mg PO BID [facility] Last Admin: 09/25/19 10:42 Dose: 1 mg Haloperidol (Haldol -) 10 mg PO HS [facility] Haloperidol (Haldol -) 5 mg PO AM [facility] Heparin Sodium (Porcine) (Heparin -) 5,000 unit SQ TID [facility] Last Admin: 09/25/19 14:28 Dose: Not Given Ceftriaxone Sodium 2 gm/ (Dextrose) 100 mls @ 200 mls/hr IVPB DAILY [facility]; Protocol Last Admin: 09/25/19 11:51 Dose: 200 mls/hr Pantoprazole Sodium (Protonix -) 40 mg PO DAILY [facility] Last Admin: 09/25/19 10:41 Dose: 40 mg Trazodone HCl (Desyrel -) 100 mg PO HS [facility] - Objective Vital Signs: Vital Signs Temperature 99 F 09/25/19 17:38 Pulse Rate 110 H 09/25/19 17:38 Respiratory Rate 20 09/25/19 17:38 Blood Pressure 108/50 L 09/25/19 17:38 O2 Sat by Pulse Oximetry (%) 95 09/24/19 09:00 Constitutional: Yes: No Distress Eyes: Yes: Conjunctiva Clear HENT: Yes: Other (+ L PERIORBITAL SWELLING/ CONTUSION) Cardiovascular: Yes: Regular Rate and Rhythm, S1, S2 Respiratory: Yes: Diminished Edema: No Labs: CBC, BMP 09/25/19 09:40 09/25/19 09:40 INR, PTT INR 1.21 (0.83-1.09) H 09/17/19 22:30 Assessment/Plan S/P RESP FAILURE PNEUMONIA CP/MR CONTINUE CEFTRIAXONE/ ZITHROMAX
[2019-09-25] MEDS ORDERED: traZODone HCL 50 MG TABLET (FP) ONE (20:42)
[2019-09-25] MEDS: traZODone HCL 100 MG TABLET (FP) PO SCH (22:31)
[2019-09-26] MEDS: BACLOFEN 10 MG TABLET (FP) PO SCH ×3 (05:59→22:57)
[2019-09-26] MEDS: HALOPERIDOL 5 MG TABLET (FP) PO SCH ×2 (05:59→22:56)
[2019-09-26] MEDS: HEPARIN NA (PORCINE) 5,000 UNITS/ML 1ML VIAL SQ SCH ×3 (06:00→22:54)
[2019-09-26] MEDS ORDERED: PT OWN MED DRAWER 7, Y5N ONE ×2 (06:57→09:02)
[2019-09-26 07:49] LABS: BASO % 0.5 % (0-2.0); EOS % 0.8 % (0-4.5); HEMATOCRIT 40.8 % (35.4-49); HEMOGLOBIN 13.8 GM/dL (11.7-16.9); LYMPH % 23.7 % (8-40); MCH 28.7 pg (25.7-33.7); MCHC 33.8 g/dl (32.0-35.9); MEAN CELL VOLUME 84.9 fl (80-96); MEAN PLT VOLUME 8.5 fl (7.5-11.1); MONO % 7.1 % (3.8-10.2); NEUT % 67.9 % (42.8-82.8); PLATELET COUNT 289 K/MM3 (134-434); RDW 13.9 % (11.9-15.9); WHITE BLOOD COUNT 9.9 K/mm3 (4.0-10.0)
[2019-09-26 08:17] LABS: CALCIUM 9.2 mg/dL (8.5-10.1); CREATININE 0.8 mg/dL (0.55-1.3); MAGNESIUM 2.3 mg/dL (1.8-2.4); PHOSPHOROUS 4.3 mg/dL (2.5-4.9); POTASSIUM 4.1 mmol/L (3.5-5.1)
[2019-09-26] MEDS ORDERED: DEXTROSE 5%-WATER 100 ML IVPB ONE (09:02)
--- NOTE | 2019-09-26 09:18 | CONSULT ---
Consult - text type - Consultation Consultation Note: Neurology CHIEF COMPLAINT: AMS PCP: Lexii Steele HISTORY OF PRESENT ILLNESS: 34 y/o male PMH cerebral palsy, intellectual disability, and BL blindness brought in from [place] home after change in behavior. The pt was to receive his bath and responded with grunts; aid mentions he was breathing heavily. On duty nurse was called to assess and pt was found to be hypoxic in the 80s%, tachypnic, and tachycardic 120s, and hypothermic at 95o. He was brought to the ED where ABG demonstrated pH of 7.22 and Pco2 72. Pt was intubated and placed on mechanical ventilation. chest x-rays demonstrated bilateral infiltrates and patient was treated with IV antibiotics. I was consulted by and discussed the case with the resident regarding the patient's mental status and there was a concern regarding agitation but with extremity shaking. Question of whether this could be seizure activity which in its description seemed more purposeful. Notes were reviewed and medication was reconciled as psych medication had not been continued from the correction but is now appropriately dosed. CT head was completed which I reviewed and did not show any acute changes. This AM, the patient was in restraints and calmwith one- to-one at bedside, discussed with resident and advised further psychological evaluation for medication optimization as well as continued optimization of infectious etiologies. Patient in unfamiliar environment and given his cognitive limitations this is also likely contributing to his agitation. PAST MEDICAL HISTORY: Cerebral palsy, intellectual disability, and BL blindness PAST SURGICAL HISTORY: unable to obtain Social History: Smoking: no Alcohol: no Drugs: no Allergies: No Known Allergies Allergy (Verified 09/17/19 22:25) HOME MEDICATIONS: Medication Instructions Recorded Baclofen 15 mg PO TID 10/25/15 Benztropine Mesylate [Cogentin -] 0.5 mg PO BID 10/25/15 Cefuroxime Axetil [Ceftin -] 500 mg PO Q12H #20 tablet 10/25/15 Cholecalciferol (Vitamin D3) 1,000 unit PO DAILY 10/25/15 [Vitamin D3] Clonazepam [Klonopin] 1 mg PO BID 10/25/15 Docusate Sodium [Colace -] 200 mg PO HS 10/25/15 Haloperidol [Haldol -] 5 mg PO BID 10/25/15 Ibuprofen [Motrin -] 600 mg PO TID #21 tablet 10/25/15 Lorazepam [Ativan] 3 mg PO DAILY 10/25/15 Multivitamin [Poly-Vitamin] 1 each PO DAILY 10/25/15 Trazodone HCl 100 mg PO HS 10/25/15 Polyethylene Glycol 3350 [Miralax 17 gm PO DAILY PRN 11/26/15 119 gm Btl -] REVIEW OF SYSTEMS CONSTITUTIONAL: Absent: fever, chills, diaphoresis, generalized weakness, malaise, loss of appetite, weight change HEENT: Absent: rhinorrhea, nasal congestion, throat pain, throat swelling, difficulty swallowing, mouth swelling, ear pain, eye pain, visual changes CARDIOVASCULAR: Absent: chest pain, syncope, palpitations, irregular heart rate, lightheadedness , peripheral edema RESPIRATORY: Absent: cough, shortness of breath, dyspnea with exertion, orthopnea, wheezing, stridor, hemoptysis GASTROINTESTINAL: Absent: abdominal pain, abdominal distension, nausea, vomiting, diarrhea, constipation, melena, hematochezia GENITOURINARY: Absent: dysuria, frequency, urgency, hesitancy, hematuria, flank pain, genital pain MUSCULOSKELETAL: Absent: myalgia, arthralgia, joint swelling, back pain, neck pain SKIN: Absent: rash, itching, pallor HEMATOLOGIC/IMMUNOLOGIC: Absent: easy bleeding, easy bruising, lymphadenopathy, frequent infections ENDOCRINE: Absent: unexplained weight gain, unexplained weight loss, heat intolerance, cold intolerance NEUROLOGIC: Absent: headache, focal weakness or paresthesias, dizziness, unsteady gait, seizure, mental status changes, bladder or bowel incontinence PSYCHIATRIC: Absent: anxiety, depression, suicidal or homicidal ideation, hallucinations. PHYSICAL EXAMINATION Vital Signs Period Temp Pulse Resp BP Sys/Horne Pulse Ox Last 24 Hr 98.0 F-99 F 96-113 18-20 108-144/50-69 96 HEAD: NC, diffuse healed scars on right face, perioral edema EYES: BL white opacity RIGHT > LEFT. Pupils not visible. ENT: Ears normal, nares patent, intubated. NECK: No lymphadenopathy or masses. LUNGS: Left upper lobe rales HEART: RRR s1 s2 ABDOMEN: Soft, BS present in all 4 quadrants, non-distended MUSCULOSKELETAL: BL UE hand contracture. No bony deformities or tenderness. UPPER EXTREMITIES: 2+ pulses, warm, well-perfused. No cyanosis. No clubbing. No peripheral edema. LOWER EXTREMITIES: 2+ pulses, warm, well-perfused. No calf tenderness. No peripheral edema. NEUROLOGICAL: Corneal reflex intact. Repsonds to painful stimuli. PSYCHIATRIC: Non-communicative SKIN: Warm, dry, normal turgor, diffuse healed scars on RIGHT side of body. Normal capillary refill. CBCD WBC 9.9 K/mm3 (4.0-10.0) 09/26/19 06:25 RBC 4.80 M/mm3 (4.00-5.60) 09/26/19 06:25 Hgb 13.8 GM/dL (11.7-16.9) 09/26/19 06:25 Hct 40.8 % (35.4-49) 09/26/19 06:25 MCV 84.9 fl (80-96) 09/26/19 06:25 MCHC 33.8 g/dl (32.0-35.9) 09/26/19 06:25 RDW 13.9 % (11.9-15.9) 09/26/19 06:25 Plt Count 289 K/MM3 (134-434) 09/26/19 06:25 MPV 8.5 fl (7.5-11.1) 09/26/19 06:25 CMP Sodium 142 mmol/L (136-145) 09/26/19 06:25 Potassium 4.1 mmol/L (3.5-5.1) 09/26/19 06:25 Chloride 110 mmol/L (98-107) H 09/26/19 06:25 Carbon Dioxide 26 mmol/L (21-32) 09/26/19 06:25 Anion Gap 7 MMOL/L (8-16) L 09/26/19 06:25 BUN 20.0 mg/dL (7-18) H 09/26/19 06:25 Creatinine 0.8 mg/dL (0.55-1.3) 09/26/19 06:25 Random Glucose 90 mg/dL (74-106) 09/26/19 06:25 Calcium 9.2 mg/dL (8.5-10.1) 09/26/19 06:25 Total Bilirubin 0.4 mg/dL (0.2-1) 09/21/19 10:50 AST 46 U/L (15-37) H 09/21/19 10:50 ALT 47 U/L (13-61) 09/21/19 10:50 Alkaline Phosphatase 80 U/L (45-117) 09/21/19 10:50 Total Protein 6.8 g/dl (6.4-8.2) 09/21/19 10:50 Albumin 3.1 g/dl (3.4-5.0) L 09/21/19 10:50 CARDIAC ENZYMES Troponin I < 0.02 ng/ml (0.00-0.05) 09/17/19 22:30 ASSESSMENT/PLAN: 34 y/o male PMH cerebral palsy, intellectual disability, and BL blindness brought in from [place] home after change in behavior. The pt was to receive his bath and responded with grunts; aid mentions he was breathing heavily. On duty nurse was called to assess and pt was found to be hypoxic in the 80s%, tachypnic, and tachycardic 120s, and hypothermic at 95o. He was brought to the ED where ABG demonstrated pH of 7.22 and Pco2 72. Pt was intubated and placed on mechanical ventilation. chest x-rays demonstrated bilateral infiltrates and patient was treated with IV antibiotics. I was consulted by and discussed the case with the resident regarding the patient's mental status and there was a concern regarding agitation but with extremity shaking. Question of whether this could be seizure activity which in its description seemed more purposeful. Notes were reviewed and medication was reconciled as psych medication had not been continued from the correction but is now appropriately dosed. CT head was completed which I reviewed and did not show any acute changes. This AM, the patient was in restraints and calmwith one- to-one at bedside, discussed with resident and advised further psychological evaluation for medication optimization as well as continued optimization of infectious etiologies. Patient in unfamiliar environment and given his cognitive limitations this is also likely contributing to his agitation. Reduce restraints, 1:1 as best able. Abx as per primary. Continue to monitor mental status. DVT ppx.
[2019-09-26] MEDS: PANTOPRAZOLE 40 MG TABLET (FP) PO SCH (09:27)
[2019-09-26] MEDS: clonazePAM 0.5 MG TABLET PO SCH ×2 (09:27→22:57)
[2019-09-26] MEDS: AZITHROMYCIN 250 MG TABLET PO SCH (09:27)
[2019-09-26] MEDS: BENZTROPINE MESYLATE 0.5 MG TABLET (FP) PO SCH ×2 (09:28→22:54)
[2019-09-26] MEDS: CEFTRIAXONE 2 GM in DEXTROSE 5%-WATER 100 ML IVPB SCH (09:28)
[2019-09-26 11:11] LABS: ANISOCYTOSIS 0; MACROCYTOSIS 0; PLATELET ESTIMATE NORMAL
--- NOTE | 2019-09-26 11:42 | PN ---
Progress Note (short form) - Note Progress Note: Hospitalist Medicine Resting in bed, on jerome , wrist restraints and on 1:1 observation. Case d/w [facility] [employer] [facility] Vitals 09/26/19 10:00 Temperature 98.6 F Pulse Rate 107 H Respiratory 20 Rate Blood Pressure 139/73 Physical Exam general: resting in bed, at moment not aggressive. in NAD HEENT: NCAT, +abrasion below L eye, dry. w/ dressing c/d/i neck: supple cardio: S1, S2 RRR. no r/m/g pulm: CTA b/l. no accessory m usage abdomen: would not permit LE: 2+ pulses, no edema neuro: security tester 2-12 grossly intact Laboratory Tests 09/26/19 09/26/19 06:25 06:25 WBC 9.9 Hgb 13.8 Hct 40.8 Plt Count 289 Sodium 142 Potassium 4.1 Chloride 110 H Carbon Dioxide 26 BUN 20.0 H Creatinine 0.8 Calcium 9.2 Phosphorus 4.3 Magnesium 2.3 Microbiology 09/19/19 03:45 Urine For Antigen Detection Legionella Antigen - Final 09/19/19 03:45 Urine For Antigen Detection Streptococcus pneumoniae Antigen (M - Final 09/18/19 00:30 Urine - Urine - Catheterized Urine Culture - Final NO GROWTH OBTAINED 09/17/19 23:03 Blood - Peripheral Venous Blood Culture - Final NO GROWTH AFTER 5 DAYS INCUBATION 09/17/19 23:03 Blood - Peripheral Venous Blood Culture - Final NO GROWTH AFTER 5 DAYS INCUBATION Imaging 09/17 CXR: slight increase in lung markings at left base - early infiltrate or atelectasis. angles are sharp. compared to prior study of 08/25/19 Most recent CXR: 09/18: +ETT, NGT in place, R infiltrate has diminished. L infiltrate has become more pronounced in the L infrahilar area and has become a bit rounded. mediastinum is not widened. angles are sharp. soft tissues intact. 09/20 CXR: interval better evaluation of the left lower lobe with residual atelectatic changes and infiltrates. no gross pneumothorax, or pleural effusion are identified. 09/21 CXR: L base changes have diminished, no sign of acute process. 09/24 CXR: clear lungs, normal mediastinum, bowel in RUQ. acute process not seen. no infiltrate. 09/25 CXR: no acute pathology 09/[address]: no significant interval change. no gross CT evidence of acute intracranial pathology. encephalomalacia in R frontal lobe, anterior/inferior and a larger area of encephalomalacia in the L frontal lobe anteriorly. cortical atrophy and encephalomalacia in occipital and parietal lobes extending to the high convexity. no shift of structures. well aerated sinuses. noted again is dense calcification of a partial R eye globe. L eye globe not included in this exam. Assessment/plan 34 y/o M with hx of cerebral palsy, intellectual disability, and blindness BIBEMS from facility because of lethargy and cough with increasing sputum production found to be septic, hypothermic, with presumed aspiration pneumonia source. Patient with acute hypoxic hypercapnic respiratory failure - intubated, sedated, peripheral warming provided in the ED along with vanc, zosyn, IVF. #sepsis 2/2 likely aspiration PNA #acute hypoxic RF -improved resp status -received vanc zosyn in ER. c/w ceftriaxone, zithromax (09/18) will change to PO based on ID recs -cx have been (-) -c/w duonebs RQID, nebs PRN -have d/c medrol -flu (-), RSV panel (-) -ID: Dr. Roque -Pulm: Dr. Weaver #Agitation r/o sz -less likely concern for sz, more likely behavioral -no need for EEG at this time -CTH (-) for acute change -repeat lactic: has normalized -neuro: Dr. Virgen -per psych, no change needed #cerebral palsy intellectual disability -c/w benztropine, klonopin, haldol, trazodone -will d/c jerome, c/w wrist restraint for now. will d/c if less agitated -d/w [facility] [employer] [facility] -Psych consult: Dr. Jaime #F/E/N off IVF continue to follow lytes puree diet, encourage hydration #PPX DVT: hep 5k sq tid GI: protonix #Dispo improved resp status and agitation must be off restraints x8 hrs prior to return per human relations teacher still on IV abx ; will need to change to PO based on ID recs
--- NOTE | 2019-09-26 12:14 | CON.PSY ---
Psychiatry Consult Chief Complaint: 34 Erika old male with a history of Intellectual disabilty, cerebral plast and Psych illness sdeen for Psych eval. On Multiple Psych meds. Patient lives in a intermediate. Symptoms: reports: Memory Impairment, Aggressivity, Impulsivity, Depersonalization, Conduct Problems - Previous Psychiatric Treatment Outpatient: None Inpatient: None - Previous Substance Abuse Treatment Outpatient: None Inpatient: None - Reason for Previous Treatment Reason for Previous Treatment: Psychotic Episode - Current Medications Current Medications: Active Medications Azithromycin (Zithromax -) 500 mg PO DAILY [facility] Last Admin: 09/26/19 09:27 Dose: 500 mg Baclofen (Lioresal -) 15 mg PO TID [facility] Last Admin: 09/26/19 05:59 Dose: 15 mg Benztropine Mesylate (Cogentin -) 0.5 mg PO BID [facility] Last Admin: 09/26/19 09:28 Dose: 0.5 mg Clonazepam (Klonopin -) 1 mg PO BID [facility] Last Admin: 09/26/19 09:27 Dose: 1 mg Haloperidol (Haldol -) 10 mg PO HS [facility] Last Admin: 09/25/19 22:29 Dose: 10 mg Haloperidol (Haldol -) 5 mg PO AM [facility] Last Admin: 09/26/19 05:59 Dose: 5 mg Heparin Sodium (Porcine) (Heparin -) 5,000 unit SQ TID [facility] Last Admin: 09/26/19 06:00 Dose: 5,000 unit Ceftriaxone Sodium 2 gm/ (Dextrose) 100 mls @ 200 mls/hr IVPB DAILY [facility]; Protocol Last Admin: 09/26/19 09:28 Dose: 200 mls/hr Pantoprazole Sodium (Protonix -) 40 mg PO DAILY [facility] Last Admin: 09/26/19 09:27 Dose: 40 mg Trazodone HCl (Desyrel -) 100 mg PO [facility] Last Admin: 09/25/19 22:31 Dose: 100 mg - Allergies Allergies: Allergies Allergy/AdvReac Type Severity Reaction Status Date / Time No Known Allergies Allergy Verified 09/17/19 22:25 - Current Living Status Usual Living Arrangement: Assisted Living - Current Mental Status Evaluation Appearance: Disheveled Attitude: Guarded - Affect Affect: Constrictive Appropriateness: Not Appropriate - Mood Mood: Irritable - Speech/Language Expressive: Delayed - Psychomotor Activity Psychomotor Activity: Hyperactive - Thought Process Thought Process: Circumstantial - Thought Content Hallucinations: Absent Delusions: Absent - Self Perception Self Perception: Depersonalization - Cognition Attention: Diminished Memory, Immediate Recall: Impaired Memory, Short Term: 3/3 Memory, Remote with Promptin/3 - Concentration Serial Sevens Intact: No Simple Calculations Intact: No - Abstraction Proverb Interpretation: Impaired Judgement: Severely Impaired - Insight Insight: Impaired - Suicidal Ideation Suicidal Ideation: No - Homicidal Ideation Homicidal Ideation: No Assessment/Plan 1) Return To halfway. 2) Continue with [facility] Psych mEds.
--- NOTE | 2019-09-26 14:49 | PN ---
Progress Note, Physician History of Present Illness: PULMONARY AWAKE,NON-VERBAL,-RESP DISTRESS,LESS CONGESTION - Current Medication List Current Medications: Active Medications Azithromycin (Zithromax -) 500 mg PO DAILY [facility] Last Admin: 09/26/19 09:27 Dose: 500 mg Baclofen (Lioresal -) 15 mg PO TID [facility] Last Admin: 09/26/19 05:59 Dose: 15 mg Benztropine Mesylate (Cogentin -) 0.5 mg PO BID [facility] Last Admin: 09/26/19 09:28 Dose: 0.5 mg Clonazepam (Klonopin -) 1 mg PO BID [facility] Last Admin: 09/26/19 09:27 Dose: 1 mg Haloperidol (Haldol -) 10 mg PO HS [facility] Last Admin: 09/25/19 22:29 Dose: 10 mg Haloperidol (Haldol -) 5 mg PO AM [facility] Last Admin: 09/26/19 05:59 Dose: 5 mg Heparin Sodium (Porcine) (Heparin -) 5,000 unit SQ TID [facility] Last Admin: 09/26/19 06:00 Dose: 5,000 unit Ceftriaxone Sodium 2 gm/ (Dextrose) 100 mls @ 200 mls/hr IVPB DAILY [facility]; Protocol Last Admin: 09/26/19 09:28 Dose: 200 mls/hr Pantoprazole Sodium (Protonix -) 40 mg PO DAILY [facility] Last Admin: 09/26/19 09:27 Dose: 40 mg Trazodone HCl (Desyrel -) 100 mg PO HS [facility] Last Admin: 09/25/19 22:31 Dose: 100 mg - Objective Vital Signs: Vital Signs Temperature 98.6 F 09/26/19 10:00 Pulse Rate 107 H 09/26/19 10:00 Respiratory Rate 20 09/26/19 10:00 Blood Pressure 139/73 09/26/19 10:00 O2 Sat by Pulse Oximetry (%) 97 09/26/19 09:00 Constitutional: Yes: Well Nourished, Calm Eyes: Yes: WNL HENT: Yes: WNL Neck: Yes: WNL Cardiovascular: Yes: Regular Rate and Rhythm, S1, S2 Respiratory: Yes: Rhonchi (FEW RHONCHI) Gastrointestinal: Yes: Normal Bowel Sounds, Soft Extremities: Yes: WNL Edema: No Labs: CBC, BMP 09/26/19 06:09/26/19 06:25 INR, PTT INR 1.21 (0.83-1.09) H 09/17/19 22:30 Problem List - Problems (1) Pneumonia Code(s): J18.9 - PNEUMONIA, UNSPECIFIED ORGANISM Qualifiers: Pneumonia type: due to unspecified organism Laterality: bilateral Lung location: lower lobe of lung Qualified Code(s): J18.9 - Pneumonia, unspecified organism (2) Respiratory distress Code(s): R06.03 - ACUTE RESPIRATORY DISTRESS Assessment/Plan A/P Acute Hypoxic and Hypercapneic Respiratory Failure improving Pneumonia likely Aspiration Sepsis Cerebral Palsy Mental Retardation - complete antibiotics, can change to PO - inhaled bronchodilators - O2 - aspiration precautions - DVT prophylaxis DR VERA
[2019-09-26] MEDS ORDERED: traZODone HCL 50 MG TABLET (FP) ONE (21:39)
[2019-09-26] MEDS: traZODone HCL 100 MG TABLET (FP) PO SCH (22:56)
[2019-09-27] MEDS: HEPARIN NA (PORCINE) 5,000 UNITS/ML 1ML VIAL SQ SCH ×2 (06:08→15:11)
[2019-09-27] MEDS: BACLOFEN 10 MG TABLET (FP) PO SCH ×2 (06:09→15:10)
[2019-09-27] MEDS: HALOPERIDOL 5 MG TABLET (FP) PO SCH (06:18)
--- NOTE | 2019-09-27 08:33 | PN ---
Progress Note (short form) - Note Progress Note: Neurology CHIEF COMPLAINT: AMS PCP: Lexii Steele HISTORY OF PRESENT ILLNESS: 34 y/o male PMH cerebral palsy, intellectual disability, and BL blindness brought in from [place] home after change in behavior. The pt was to receive his bath and responded with grunts; aid mentions he was breathing heavily. On duty nurse was called to assess and pt was found to be hypoxic in the 80s%, tachypnic, and tachycardic 120s, and hypothermic at 95o. He was brought to the ED where ABG demonstrated pH of 7.22 and Pco2 72. Pt was intubated and placed on mechanical ventilation. chest x-rays demonstrated bilateral infiltrates and patient was treated with IV antibiotics. I was consulted by and discussed the case with the resident regarding the patient's mental status and there was a concern regarding agitation but with extremity shaking. Question of whether this could be seizure activity which in its description seemed more purposeful. Notes were reviewed and medication was reconciled as psych medication had not been continued from the correction but is now appropriately dosed. CT head was completed which I reviewed and did not show any acute changes. This AM, the patient was in restraints and calm with one -to-one at bedside, patient in unfamiliar environment and given his cognitive limitations this is also likely contributing to his agitation. psychiatry note reviewed and recommended to return to correction and to continue psychiatric medications. Active Medications Azithromycin (Zithromax -) 500 mg PO DAILY [facility] Last Admin: 09/26/19 09:27 Dose: 500 mg Baclofen (Lioresal -) 15 mg PO TID [facility] Last Admin: 09/27/19 06:09 Dose: 15 mg Benztropine Mesylate (Cogentin -) 0.5 mg PO BID [facility] Last Admin: 09/26/19 22:54 Dose: 0.5 mg Clonazepam (Klonopin -) 1 mg PO BID [facility] Last Admin: 09/26/19 22:57 Dose: 1 mg Haloperidol (Haldol -) 10 mg PO HS [facility] Last Admin: 09/26/19 22:56 Dose: 10 mg Haloperidol (Haldol -) 5 mg PO AM [facility] Last Admin: 09/27/19 06:18 Dose: 5 mg Heparin Sodium (Porcine) (Heparin -) 5,000 unit SQ TID [facility] Last Admin: 09/27/19 06:08 Dose: 5,000 unit Ceftriaxone Sodium 2 gm/ (Dextrose) 100 mls @ 200 mls/hr IVPB DAILY [facility]; Protocol Last Admin: 09/26/19 09:28 Dose: 200 mls/hr Pantoprazole Sodium (Protonix -) 40 mg PO DAILY [facility] Last Admin: 09/26/19 09:27 Dose: 40 mg Trazodone HCl (Desyrel -) 100 mg PO HS [facility] Last Admin: 09/26/19 22:56 Dose: 100 mg PHYSICAL EXAMINATION Vital Signs Period Temp Pulse Resp BP Sys/Horne Pulse Ox Last 24 Hr 97.6 F-99.1 F 82-107 17-20 105-139/56-76 97-97 HEAD: NC, diffuse healed scars on right face, perioral edema EYES: BL white opacity RIGHT > LEFT. Pupils not visible. ENT: Ears normal, nares patent, intubated. NECK: No lymphadenopathy or masses. LUNGS: Left upper lobe rales HEART: RRR s1 s2 ABDOMEN: Soft, BS present in all 4 quadrants, non-distended MUSCULOSKELETAL: BL UE hand contracture. No bony deformities or tenderness. UPPER EXTREMITIES: 2+ pulses, warm, well-perfused. No cyanosis. No clubbing. No peripheral edema. LOWER EXTREMITIES: 2+ pulses, warm, well-perfused. No calf tenderness. No peripheral edema. NEUROLOGICAL: Corneal reflex intact. Repsonds to painful stimuli. PSYCHIATRIC: Non-communicative SKIN: Warm, dry, normal turgor, diffuse healed scars on RIGHT side of body. Normal capillary refill. CBCD WBC 9.9 K/mm3 (4.0-10.0) 09/26/19 06:25 RBC 4.80 M/mm3 (4.00-5.60) 09/26/19 06:25 Hgb 13.8 GM/dL (11.7-16.9) 09/26/19 06:25 Hct 40.8 % (35.4-49) 09/26/19 06:25 MCV 84.9 fl (80-96) 09/26/19 06:25 MCHC 33.8 g/dl (32.0-35.9) 09/26/19 06:25 RDW 13.9 % (11.9-15.9) 09/26/19 06:25 Plt Count 289 K/MM3 (134-434) 09/26/19 06:25 MPV 8.5 fl (7.5-11.1) 09/26/19 06:25 CMP Sodium 142 mmol/L (136-145) 09/26/19 06:25 Potassium 4.1 mmol/L (3.5-5.1) 09/26/19 06:25 Chloride 110 mmol/L (98-107) H 09/26/19 06:25 Carbon Dioxide 26 mmol/L (21-32) 09/26/19 06:25 Anion Gap 7 MMOL/L (8-16) L 09/26/19 06:25 BUN 20.0 mg/dL (7-18) H 09/26/19 06:25 Creatinine 0.8 mg/dL (0.55-1.3) 09/26/19 06:25 Random Glucose 90 mg/dL (74-106) 09/26/19 06:25 Calcium 9.2 mg/dL (8.5-10.1) 09/26/19 06:25 Total Bilirubin 0.4 mg/dL (0.2-1) 09/21/19 10:50 AST 46 U/L (15-37) H 09/21/19 10:50 ALT 47 U/L (13-61) 09/21/19 10:50 Alkaline Phosphatase 80 U/L (45-117) 09/21/19 10:50 Total Protein 6.8 g/dl (6.4-8.2) 09/21/19 10:50 Albumin 3.1 g/dl (3.4-5.0) L 09/21/19 10:50 CARDIAC ENZYMES Troponin I < 0.02 ng/ml (0.00-0.05) 09/17/19 22:30 ASSESSMENT/PLAN: 34 y/o male PMH cerebral palsy, intellectual disability, and BL blindness brought in from [place] home after change in behavior. The pt was to receive his bath and responded with grunts; aid mentions he was breathing heavily. On duty nurse was called to assess and pt was found to be hypoxic in the 80s%, tachypnic, and tachycardic 120s, and hypothermic at 95o. He was brought to the ED where ABG demonstrated pH of 7.22 and Pco2 72. Pt was intubated and placed on mechanical ventilation. chest x-rays demonstrated bilateral infiltrates and patient was treated with IV antibiotics. I was consulted by and discussed the case with the resident regarding the patient's mental status and there was a concern regarding agitation but with extremity shaking. Question of whether this could be seizure activity which in its description seemed more purposeful. Notes were reviewed and medication was reconciled as psych medication had not been continued from the correction but is now appropriately dosed. CT head was completed which I reviewed and did not show any acute changes.This AM, the patient was in restraints and calm with one- to-one at bedside, patient in unfamiliar environment and given his cognitive limitations this is also likely contributing to his agitation. psychiatry note reviewed and recommended to return to correction and to continue psychiatric medications. Reduce restraints, 1:1 as best able. Abx as per primary. Continue to monitor mental status. DVT ppx. Seems to be near baseline mental status during my encounter this morning
[2019-09-27] MEDS ORDERED: DEXTROSE 5%-WATER 100 ML IVPB ONE (09:23)
--- NOTE | 2019-09-27 10:50 | PN ---
Progress Note (short form) - Note Progress Note: PULMONARY Pt calm today. No fevers recorded. Vital Signs Period Temp Pulse Resp BP Sys/Horne Pulse Ox Last 24 Hr 97.6 F-99.1 F 82-107 17-18 105-130/56-76 97 Gen: breathing nonlabored Heart: RRR Lung: decreased breath sounds at the bases Abd: soft, nontender Ext: no edema CBC, BMP 09/26/19 06:25 09/26/19 06:25 Active Medications Azithromycin (Zithromax -) 500 mg PO DAILY [facility] Last Admin: 09/26/19 09:27 Dose: 500 mg Baclofen (Lioresal -) 15 mg PO TID [facility] Last Admin: 09/27/19 06:09 Dose: 15 mg Benztropine Mesylate (Cogentin -) 0.5 mg PO BID [facility] Last Admin: 09/26/19 22:54 Dose: 0.5 mg Clonazepam (Klonopin -) 1 mg PO BID [facility] Last Admin: 09/26/19 22:57 Dose: 1 mg Haloperidol (Haldol -) 10 mg PO HS [facility] Last Admin: 09/26/19 22:56 Dose: 10 mg Haloperidol (Haldol -) 5 mg PO AM [facility] Last Admin: 09/27/19 06:18 Dose: 5 mg Heparin Sodium (Porcine) (Heparin -) 5,000 unit SQ TID [facility] Last Admin: 09/27/19 06:08 Dose: 5,000 unit Ceftriaxone Sodium 2 gm/ (Dextrose) 100 mls @ 200 mls/hr IVPB DAILY [facility]; Protocol Last Admin: 09/26/19 09:28 Dose: 200 mls/hr Pantoprazole Sodium (Protonix -) 40 mg PO DAILY [facility] Last Admin: 09/26/19 09:27 Dose: 40 mg Trazodone HCl (Desyrel -) 100 mg PO HS [facility] Last Admin: 09/26/19 22:56 Dose: 100 mg A/P Acute Hypoxic and Hypercapneic Respiratory Failure improving Pneumonia likely Aspiration Sepsis Cerebral Palsy Mental Retardation - complete antibiotics - inhaled bronchodilators - O2 as needed - aspiration precautions - DVT prophylaxis
[2019-09-27] MEDS: CEFTRIAXONE 2 GM in DEXTROSE 5%-WATER 100 ML IVPB SCH (10:59)
[2019-09-27] MEDS: clonazePAM 0.5 MG TABLET PO SCH (11:00)
[2019-09-27] MEDS: PANTOPRAZOLE 40 MG TABLET (FP) PO SCH (11:00)
[2019-09-27] MEDS: AZITHROMYCIN 250 MG TABLET PO SCH (11:00)
[2019-09-27] MEDS: BENZTROPINE MESYLATE 0.5 MG TABLET (FP) PO SCH (11:01)
--- NOTE | 2019-09-27 12:00 | PN ---
Progress Note, LINE HELPER - Note Progress Note: Selected Entries 09/22/19 09/22/19 09/23/19 10:00 22:00 09:31 Breakfast 75% 100% Lunch 75% Supper 75% Temperature 09/23/19 09/23/19 09/23/19 11:00 15:00 19:00 Breakfast Lunch Supper Temperature 99.8 F H 99.6 F 99 F 09/23/19 09/24/19 09/24/19 22:00 08:00 12:00 Breakfast Lunch Supper Temperature 99.0 F 98.2 F 98.1 F Laboratory Tests 09/24/19 09:20 WBC 9.3 Selected Entries 09/27/19 09:52 Breakfast 100% Diet Tolerated Well Laboratory Tests 09/24/19 09/25/19 09/26/19 09:20 09:40 06:25 WBC 9.3 11.5 H 9.9 On puree/nectar MBS before diet upgrade. Can be done as out pt.
[2019-09-27 14:40] VITALS: BP 100/59; PULSE 102; TEMP 97.5
--- NOTE | 2019-09-27 15:11 | DS ---
Physical Exam: SUBJECTIVE: Patient seen and examined at bedside. Calm, off restraints. No sitter at bedside. Discussed case w/ Beena for return to facility from [place] [facility]. Transportation arriving soon. OBJECTIVE: Vital Signs Period Temp Pulse Resp BP Sys/Horne Pulse Ox Last 24 Hr 97.5 F-99.1 F 76-107 17-18 100-130/56-76 97-97 09/23/19 09/24/19 09/24/19 11:00 17:29 21:00 Temperature 99.8 F H 97.1 F L 99.8 F H 09/26/19 09/26/19 06:00 10:00 Temperature 98.5 F 98.6 F 09/22/19 09/23/19 09/23/19 22:00 04:00 17:00 Blood Pressure 129/81 132/108 H 116/82 09/24/19 09/25/19 09/26/19 02:00 13:00 23:00 Blood Pressure 103/80 112/54 L 130/76 09/27/19 09/27/19 06:00 11:28 Blood Pressure 114/56 L 120/76 Physical Exam general: resting in bed, at moment not aggressive. in NAD HEENT: NCAT, +abrasion below L eye, dry. w/ dressing c/d/i neck: supple cardio: S1, S2 RRR. no r/m/g pulm: CTA b/l. 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 grossly intact LABS 09/18/19 09/18/19 09/19/19 05:35 12:10 05:55 WBC 4.5 7.7 10.1 H Hgb 14.7 13.7 12.9 Hct 41.9 40.0 36.9 Plt Count 192 D 167 180 09/20/19 09/21/19 09/22/19 06:26 10:50 06:50 WBC 12.5 H 11.1 H 9.5 Hgb 12.5 13.4 14.3 Hct 36.0 39.8 41.7 Plt Count 207 206 242 09/24/19 09/25/19 09/26/19 09:20 09:40 06:25 WBC 9.3 11.5 H 9.9 Hgb 14.0 14.2 13.8 Hct 41.5 40.8 Plt Count 276 318 289 09/17/19 22:30 PT with INR 14.30 H INR 1.21 H PTT (Actin FS) 31.4 09/18/19 09/18/19 09/18/19 01:00 05:45 10:14 ABG pH 7.22 L 7.35 7.42 ABG pCO2 at Pt Temp 64.5 H 47.6 H 42.6 ABG pO2 at Pt Temp 138 H 161 H 112 H ABG HCO3 25.5 25.7 27.1 H ABG O2 Sat (Measured) 97.8 98.8 H 98.2 H ABG O2 Content 19.8 ABG Base Excess 2.7 H 09/19/19 09/20/19 09/21/19 05:55 06:26 10:50 Sodium 142 142 145 Potassium Chloride 109 H 111 H 112 H Carbon Dioxide Anion Gap 4 L 8 BUN 10.1 12.6 20.0 H Creatinine 0.6 0.6 0.7 Est GFR (CKD-EPI)NonAf 132.10 Random Glucose 109 H 09/22/19 09/24/19 09/25/19 06:50 09:20 09:40 Sodium 146 H 141 143 Potassium Chloride 113 H 108 H Carbon Dioxide Anion Gap 10 BUN 25.9 H 14.4 21.1 H Creatinine 0.7 0.7 1.0 Est GFR (CKD-EPI)NonAf Random Glucose 09/26/19 06:25 Sodium 142 Potassium 4.1 Chloride 110 H Carbon Dioxide 26 Anion Gap BUN 20.0 H Creatinine 0.8 Est GFR (CKD-EPI)NonAf Random Glucose 09/18/19 00:30 Urine Protein Negative Urine Glucose (UA) Trace Urine Ketones Negative Urine Blood Negative Urine Nitrite Negative Urine Bilirubin Negative 09/18/19 09/18/19 05:00 14:30 Adenovirus (PCR) Negative Human Metapneumovir PCR Negative Influenza A (Rapid) Negative Influenza A (H1) PCR Negative Influenza B (Rapid) Negative Influenza B (RT-PCR) Negative Parainfluenza 1 (PCR) Negative Parainfluenza 2 (PCR) Negative Parainfluenza 3 (PCR) Negative RSV Type A (PCR) Negative RSV Type B (PCR) Negative Rhinovirus (PCR) Negative Microbiology 09/19/19 03:45 Urine For Antigen Detection Legionella Antigen - Final 09/19/19 03:45 Urine For Antigen Detection Streptococcus pneumoniae Antigen (M - Final 09/18/19 00:30 Urine - Urine - Catheterized Urine Culture - Final NO GROWTH OBTAINED 09/17/19 23:03 Blood - Peripheral Venous Blood Culture - Final NO GROWTH AFTER 5 DAYS INCUBATION 09/17/19 23:03 Blood - Peripheral Venous Blood Culture - Final NO GROWTH AFTER 5 DAYS INCUBATION Imaging 09/17 CXR: slight increase in lung markings at left base - early infiltrate or atelectasis. angles are sharp. compared to prior study of 08/25/19 Most recent CXR: 09/18: +ETT, NGT in place, R infiltrate has diminished. L infiltrate has become more pronounced in the L infrahilar area and has become a bit rounded. mediastinum is not widened. angles are sharp. soft tissues intact. 09/20 CXR: interval better evaluation of the left lower lobe with residual atelectatic changes and infiltrates. no gross pneumothorax, or pleural effusion are identified. 09/21 CXR: L base changes have diminished, no sign of acute process. 09/24 CXR: clear lungs, normal mediastinum, bowel in RUQ. acute process not seen. no infiltrate. 09/25 CXR: no acute pathology 09/[address]: no significant interval change. no gross CT evidence of acute intracranial pathology. encephalomalacia in R frontal lobe, anterior/inferior and a larger area of encephalomalacia in the L frontal lobe anteriorly. cortical atrophy and encephalomalacia in occipital and parietal lobes extending to the high convexity. no shift of structures. well aerated sinuses. noted again is dense calcification of a partial R eye globe. L eye globe not included in this exam. HOSPITAL COURSE: Date of Admission:09/18/19 Date of Discharge: 09/27/19 34 y/o M with hx of cerebral palsy, intellectual disability, and blindness BIBEMS from facility because of lethargy and cough with increasing sputum production found to be septic, hypothermic, with presumed aspiration pneumonia source. Patient with acute hypoxic hypercapnic respiratory failure - intubated, sedated, peripheral warming provided in the ED along with vanc, zosyn, IVF. Pt was managed accordingly on the floor: #sepsis 2/2 likely aspiration PNA #acute hypoxic RF -improved resp status -received vanc zosyn in ER. c/w ceftriaxone, zithromax (09/18) - completed 10 day course. being sent back to facility off abx, as afebrile, no leukocytosis. improved mentation -cx have been (-) -c/w duonebs RQID, nebs PRN -have d/c medrol -flu (-), RSV panel (-) #Agitation r/o sz -less likely concern for sz, more likely behavioral -no need for EEG at this time -CTH (-) for acute changes -repeat lactic: has normalized -seen by neuro and psych teams, no changes in mgmt required #cerebral palsy intellectual disability -c/w benztropine, klonopin, haldol, trazodone -has been off jerome, without 1:1 -d/w [facility] Minutes to complete discharge: 44 Discharge Summary Problems reviewed: Yes Reason For Visit: RESPIRATORY DISTRESS, PNEUMONIA Current Active Problems Pneumonia (Acute) Respiratory distress (Acute) Condition: Improved - Instructions Diet, Activity, Other Instructions: You were in the hospital because you had pneumonia. You were treated with IV antibiotics and improved. While you were in the hospital, you were also monitored for agitation. You were seen by a psychiatrist and a neurologist; it was recommended that you continue your home medications. Medications 1. You may resume your home medications. Follow-up Please follow up with [facility], Dr. Steele -within the next 3-5 days. Referrals: Lexii Steele [Primary Care Provider] - 10/01/19 Disposition: HOME - Home Medications Comprehensive Discharge Medication List: Ambulatory Orders Baclofen 15 mg PO TID 10/25/15 Benztropine Mesylate [Cogentin -] 0.5 mg PO BID 10/25/15 Cholecalciferol (Vitamin D3) [Vitamin D3] 1,000 unit PO DAILY 10/25/15 Clonazepam [Klonopin] 1 mg PO BID 10/25/15 Docusate Sodium [Colace -] 200 mg PO HS 10/25/15 Multivitamin [Poly-Vitamin] 1 each PO DAILY 10/25/15 Trazodone HCl 100 mg PO HS 10/25/15 Polyethylene Glycol 3350 [Miralax 119 gm Btl -] 17 gm PO DAILY PRN 11/26/15 Ammonium Lactate Cream [Lac-Hydrin 12% Cream -] 1 applic TD DAILY 09/18/19 Haloperidol [Haldol -] 5 mg PO AM 09/25/19 Haloperidol [Haldol -] 10 mg PO HS 09/25/19 This patient is new to me today: No Emergency Visit: No Critical Care patient: No - Discharge Referral Referred to [facility] No ATTENDING PHYSICIAN STATEMENT I saw and evaluated the patient. I reviewed the resident's note and discussed the case with the resident. I agree with the resident's findings and plan as documented. SUBJECTIVE: OBJECTIVE: ASSESSMENT AND PLAN:
== END 2019-09-27 17:08 | disposition home or self-care (01) | DRG 871 ==
LOC: JER 22:04 → JERBED 09-18 02:03 → JICU 09-19 03:21 → J8W 09-24 16:21 → J7W 09-25 18:35
PROVIDERS: ADMIT Internal Medicine; ATTEND Internal Medicine
PROC: 5A1945Z Respiratory Ventilation, 24-96 Consecutive Hours (ICD-10-PCS; principal; 2019-09-17)
PROC: 0BH17EZ Insertion of Endotracheal Airway into Trachea, Via Natural or Artificial Opening (ICD-10-PCS; 2019-09-17)
DX: A41.9 Sepsis, unspecified organism (principal); J96.01 Acute respiratory failure with hypoxia; J96.02 Acute respiratory failure with hypercapnia; J69.0 Pneumonitis due to inhalation of food and vomit; G80.9 Cerebral palsy, unspecified; F79 Unspecified intellectual disabilities
CPT/HCPCS: 36415; 36600; 70450-TC; 71045-TC-FY; 80048; 80053; 81003; 82375; 82803; 83050; 83605; 83735; 84100; 84484; 85025; 85610; 85730; 87040; 87086; 87633; 87804; 87899; 93005; 93010; 94002; 94640; 99285-25; J0475; J1644; J7030

== ENCOUNTER 2021-03-11 18:54 | Emergency (ER) | payer OTHER ==
[2021-03-11 19:04] VITALS: BP 111/75; PULSE 66; TEMP 97.6; BMI 21.2
== END 2021-03-11 20:57 | disposition home or self-care (01) ==
LOC: JER 18:54
DX: S01.111A Laceration without foreign body of right eyelid and periocular area, initial encounter (principal); S01.512A Laceration without foreign body of oral cavity, initial encounter
CPT/HCPCS: 99282-25

== ENCOUNTER 2022-10-29 16:08 | Emergency (ER) | payer OTHER ==
[2022-10-29 17:05] VITALS: BP 125/77; PULSE 75; RESP 18; TEMP 98; BMI 19.8
[2022-10-29] MEDS ORDERED: HALOPERIDOL LACTATE 5 MG/ML IM ONE ×2 (20:51→20:59)
[2022-10-29] MEDS ORDERED: LORazepam 2 MG/ML SDV VIAL IM ONE (20:52)
== END 2022-10-30 00:21 | disposition home or self-care (01) ==
LOC: JER 16:08
PROC: 0HQ0XZZ Repair Scalp Skin, External Approach (ICD-10-PCS; principal; 2022-10-29)
PROC: 3E023GC Introduction of Other Therapeutic Substance into Muscle, Percutaneous Approach (ICD-10-PCS; 2022-10-29)
DX: S01.01XA Laceration without foreign body of scalp, initial encounter (principal); W22.8XXA Striking against or struck by other objects, initial encounter
CPT/HCPCS: 70450-TC; 99284-25

== ENCOUNTER 2023-04-16 13:27 | Emergency (ER) | payer OTHER ==
[2023-04-16 13:40] VITALS: BP 114/68; PULSE 106; RESP 18; TEMP 97.6; BMI 24.2
== END 2023-04-16 16:01 | disposition home or self-care (01) ==
LOC: JERFT 13:27
PROC: 0HQ0XZZ Repair Scalp Skin, External Approach (ICD-10-PCS; principal; 2023-04-16)
DX: S01.81XA Laceration without foreign body of other part of head, initial encounter (principal); S91.001A Unspecified open wound, right ankle, initial encounter; W01.198A Fall on same level from slipping, tripping and stumbling with subsequent striking against other object, initial encounter; Y93.89 Activity, other specified; Y92.009 Unspecified place in unspecified non-institutional (private) residence as the place of occurrence of the external cause
CPT/HCPCS: 99282-25

== ENCOUNTER 2024-03-01 10:00 | Emergency (ER) | payer OTHER ==
[2024-03-01 10:10] VITALS: BP 107/58; PULSE 73; RESP 20; TEMP 97.8; BMI 22.8
[2024-03-01 11:15] LABS: BASO % 0.7 % (0-2.0); EOS % 8.3 % (0-4.5); HEMATOCRIT 48.5 % (35.4-49); HEMOGLOBIN 16.8 GM/dL (11.7-16.9); LYMPH % 36.2 % (8-40); MCH 29.7 pg (25.7-33.7); MCHC 34.6 g/dl (32.0-35.9); MEAN CELL VOLUME 85.8 fl (80-96); MEAN PLT VOLUME 8.7 fl (7.5-11.1); MONO % 10.6 % (3.8-10.2); NEUT % 44.2 % (42.8-82.8); PLATELET COUNT 206 10^3/uL (134-434); RBC 5.65 M/mm3 (4.00-5.60); RDW 13.6 % (11.9-15.9); WHITE BLOOD COUNT 4.4 K/mm3 (4.0-10.0)
[2024-03-01] MEDS: morphine CARPU-JECT 8 MG/1 ML DISP.SYRIN IVPUSH ONE (11:19)
[2024-03-01 11:36] LABS: POTASSIUM 4.6 mmol/L (3.5-5.1)
[2024-03-01 11:38] LABS: CALCIUM 9.1 mg/dL (8.5-10.1)
[2024-03-01 11:39] LABS: ALBUMIN 3.6 g/dl (3.4-5.0); BLOOD UREA NITROGEN 19.6 mg/dL (7-18)
[2024-03-01 11:42] LABS: CREATININE 0.8 mg/dL (0.55-1.3)
[2024-03-01 11:43] LABS: BILIRUBIN,TOTAL 0.5 mg/dL (0.2-1)
[2024-03-01 11:44] LABS: TOT PROT 7.4 g/dl (6.4-8.2)
== END 2024-03-01 14:27 | disposition home or self-care (01) ==
LOC: JER 10:00
PROC: 3E033NZ Introduction of Analgesics, Hypnotics, Sedatives into Peripheral Vein, Percutaneous Approach (ICD-10-PCS; principal; 2024-03-01)
PROC: 3E033GC Introduction of Other Therapeutic Substance into Peripheral Vein, Percutaneous Approach (ICD-10-PCS; 2024-03-01)
DX: M54.50 Low back pain, unspecified (principal); L03.312 Cellulitis of back [any part except buttock and flank]
CPT/HCPCS: 36415; 74177-TC; 80053; 85025; 99285-25; Q9967

== ENCOUNTER 2024-08-17 14:16 | Emergency (ER) | payer OTHER ==
[2024-08-17 14:43] VITALS: BP 122/85; PULSE 105; RESP 18; TEMP 98.7; BMI 24.9
== END 2024-08-17 16:23 | disposition home or self-care (01) ==
LOC: JER 14:16
DX: S00.81XA Abrasion of other part of head, initial encounter (principal); W22.8XXA Striking against or struck by other objects, initial encounter
CPT/HCPCS: 99283-25